=== PATIENT | female | born 1980 | race African-American/Black ===

== ENCOUNTER 2021-05-29 00:03 | Inpatient (IN) | payer OTHER, SELFPAY ==
[2021-05-29] VITALS (57 sets, daily range): BP systolic 118–218; BP diastolic 016–169; PULSE 66–101; RESP 11–23; TEMP 19.4–37.3; O2SAT 98–100; BMI 27.3
--- NOTE | ~2021-05-29 | IR_ITS ---
PROCEDURE: IR INSERTION OF CENTRAL VENOUS CATHETER CLINICAL INFORMATION: Patient needs dialysis. COMPARISON: None TECHNIQUE: Placement of temporary dialysis catheter portably in the ICU. All elements of maximal sterile barrier technique followed including use of cap, mask, sterile gown, sterile gloves, a sterile full body drape and hand hygiene. Also followed skin preparation with 2% chlorhexidine for cutaneous antisepsis, and sterile ultrasound preparation with sterile gel and probe cover when applicable. FINDINGS: Informed consent was obtained from the patient's guardian prior to the procedure. During this process, the procedure and potential alternatives were explained, along with the intended outcome and benefits. The risks of the procedure, as well as the risk of not doing the procedure, were discussed. The patient's guardian was given the opportunity to ask questions regarding the procedure and appeared competent to make medical decisions. A signed consent form which documents this discussion was placed in the medical record. Using sterile technique and ultrasound guidance the right internal jugular vein was punctured and guidewire directed down into the inferior vena cava. Following fascial dilatation a 12 [place] dual-lumen dialysis catheter was placed. Catheter was sutured in place. No immediate complication was evident. IR/IR cvc insert non tunnel IMPRESSION: Placement of right internal jugular dialysis catheter portably without fluoroscopy.
--- NOTE | ~2021-05-29 | XR_ITS ---
EXAMINATION: XR CHEST CLINICAL INFORMATION: Status post right IJ dialysis catheter placement. COMPARISON: Chest radiograph dated from 05/29/2021. TECHNIQUE: AP view of the chest was obtained. FINDINGS: A large bore right IJ dialysis catheter terminates overlying the lower SVC. A left IJ CVC appears slightly more retracted than on the prior examination projecting at the level of the left innominate vein to the left of the thoracic spine. An endotracheal tube terminates at 7.4 cm above the davidson. Stable appearance of the cardiomediastinal silhouette. EKG wires overlie to patient. No focal airspace opacities, pleural effusions or pneumothorax. No acute osseous abnormalities. The visualized upper abdomen is within normal limits. XR/XR chest 1V IMPRESSION: 1. Endotracheal tube terminates at 7.4 cm above the davidson, recommend repositioning. 2. Right IJ large-bore dialysis catheter terminates projecting over the lower SVC. Usually, the recommended positioning is within the right atrium. Recommend correlation with interventionalist and if needed repositioning. 3. Left IJ CVC is slightly more retracted at the level of the left innominate vein. 4. Clear lungs. The report will be called to the ordering clinician by a [facility] [employer] Developer.
--- NOTE | ~2021-05-29 | US_ITS ---
EXAMINATION: ULTRASOUND RENAL WITH DOPPLER CLINICAL INFORMATION: Hypertension COMPARISON: None. TECHNIQUE: Real-time grayscale, color Doppler, and duplex Doppler evaluation of the kidneys and renal vasculature was performed. FINDINGS: RENAL MEASUREMENTS: Right: 8.3 x 3.2 x 6.7 cm (Sag x AP x TV) simple cyst middle pole measures 3.4 x 3.5 x 3.7 cm, simple cyst upper pole 0.8 x 1.1 x 1.1 cm. Left: 7.8 x 4 x 3.8 cm (Sag x AP x TV) Simple cyst middle pole 0.8 x 0.6 x 0.7 cm. The renal parenchyma appears normal. No hydronephrosis or nephrolithiasis. DOPPLER INTERROGATION: Aorta: 65.4 cm/sec Right Main Renal Artery: Proximal: Not visualized obscured by bowel gas. Mid: 40 cm/sec Distal: 48 cm/sec Left Main Renal Artery: Proximal: 63 cm/sec Mid: 56 cm/sec Distal: 33 cm/sec Renal-Aortic Ratio (RAR): Right: 0.7 Left: 1 US/US renal BI IMPRESSION: No Doppler evidence of renal artery stenosis. Bilateral simple renal cysts. No follow-up is required.
--- NOTE | ~2021-05-29 | CT_ITS ---
EXAMINATION: CT HUMERUS WITHOUT CONTRAST, LEFT CT FOREARM WITHOUT CONTRAST, LEFT CLINICAL INFORMATION: Swelling. Intubated ICU patient. COMPARISON: None TECHNIQUE: Contiguous axial CT images of the left humerus were obtained without contrast. Contiguous axial CT images of the left forearm were obtained without contrast. Sagittal and coronal reformats were provided. This CT examination was performed using dose optimization techniques as appropriate, variously including the following: *Automated exposure control *Adjustment of mA and/or kV according to patient size (this includes techniques or standardized protocols for targeted exams where dose is matched to indication/reason for exam; i.e. extremities or head) *Use of iterative reconstruction technique DOSE: 364 mGy-cm FINDINGS: LEFT HUMERUS: No acute fracture or dislocation. No concerning lytic or blastic osseous lesion. No acute osseous abnormality. Circumferential subcutaneous edema and stranding at the distal humerus and left elbow. No organized fluid collection or evidence of abscess formation. No soft tissue mass. Left flank subcutaneous fluid/edema is partially visualized. The visualized muscles and tendons are grossly intact, however, evaluation is significantly limited on CT examination. LEFT FOREARM: No acute fracture or dislocation. No concerning lytic or blastic osseous lesion. No acute osseous abnormality. Circumferential subcutaneous edema and stranding at the left elbow extending through the majority of the left forearm into the left hand. No organized fluid collection/abscess formation. No abnormal soft tissue mass. Left flank subcutaneous venous edema/fluid is partially visualized. The muscles and tendons are grossly intact, however, evaluation is limited on CT examination. CT/CT humerus LT wo con IMPRESSION: 1. Prominent circumferential subcutaneous edema and stranding extending from the distal humerus to the left elbow and left forearm into the left hand. 2. No abnormal soft tissue mass or organized fluid collection/abscess formation. 3. No acute osseous abnormality.
--- NOTE | ~2021-05-29 | XR_ITS ---
EXAMINATION: XR CHEST CLINICAL INFORMATION: Intubation COMPARISON: None TECHNIQUE: Frontal view of the chest was obtained. FINDINGS: Endotracheal tube terminates 8.9 cm above the davidson. Normal symmetric lung volumes. No parenchymal consolidation. No pleural effusion. No pneumothorax. Cardiomediastinal silhouette and pulmonary vascularity are within normal limits. No acute osseous abnormalities. XR/XR chest 1V IMPRESSION: Endotracheal tube terminates 8.9 cm above the davidson. Clear lungs.
--- NOTE | ~2021-05-29 | CT_ITS ---
EXAMINATION: CT ANGIOGRAM NECK CLINICAL INFORMATION: Vasculitis. Evaluate carotid/vertebrobasilar arteries. COMPARISON: MRI scan of the brain 05/30/2021. CT scan of the neck 05/29/2021. TECHNIQUE: Test bolus series followed by intravenous administration 70 mL of Omnipaque 350. Helical imaging was performed in the axial plane from the mediastinum to the skull base. The degree of stenosis is based off NASCET criteria. The data was processed at the cytotechnologist/histotechnologist workstation for generation of MIP images. Three-dimensional volume rendered reformatted images were also generated at an offline 3-D workstation. This CT examination was performed using dose optimization techniques as appropriate, variously including the following: *Automated exposure control *Adjustment of mA and/or kV according to patient size (this includes techniques or standardized protocols for targeted exams where dose is matched to indication/reason for exam; i.e. extremities or head) *Use of iterative reconstruction technique DLP: 871 mGy-cm. FINDINGS: There is a 2 vessel aortic arch, and the left common carotid and brachiocephalic arteries have a common origin. The subclavian arteries are patent bilaterally. The common carotid arteries are patent bilaterally. The left common carotid artery is slightly tortuous. The carotid bifurcations appear normal without atheromatous calcification. The cervical internal carotid arteries are patent bilaterally. The external carotid arteries and their branches appear patent; specifically, the lingual arteries are patent bilaterally The origins of both vertebral arteries are well-demonstrated. The right vertebral artery is dominant; the left vertebral artery is uniformly thin compared to the right, but is patent throughout its cervical course extending intracranially. Intracranially, the right vertebral artery is dominant. The left vertebral artery appears to end primarily in the PICA. Nonvascular: The visualized lung rae are well-aerated. The thyroid gland appears normal. Endotracheal and nasogastric tubes are partially visualized. There are central catheters from the left and right. There are no acute osseous findings. The tongue does not appear as swollen compared to the prior CT scan. There are sequelae of a right lamina papyracea fracture. Blood and fluid levels are noted in the right maxillary and right sphenoid sinuses and there is opacification in the right ethmoid air cells. The intracranial structures are not fully included on this study. CT/CT angio neck IMPRESSION: 1. The common and internal carotid arteries are patent bilaterally. The carotid bifurcations appear normal. The branches of the external carotid artery appear to opacify normally, bilaterally. 2. The left vertebral artery is thinner compared to the right but has uniform caliber throughout its cervical course. It appears to end primarily in the PICA. 3. There are sequelae of a right lamina papyracea fracture and blood and fluid levels are noted in the right maxillary and right sphenoid sinuses.
--- NOTE | ~2021-05-29 | CT_ITS ---
EXAMINATION: CT HEAD WITHOUT CONTRAST CLINICAL INFORMATION: Evaluate for edema. COMPARISON: CT brain 05/29/2021 TECHNIQUE: Contiguous axial imaging was performed from the skull base to vertex without intravenous administration of contrast. This CT examination was performed using dose optimization techniques as appropriate, variously including the following: *Automated exposure control *Adjustment of mA and/or kV according to patient size (this includes techniques or standardized protocols for targeted exams where dose is matched to indication/reason for exam; i.e. extremities or head) *Use of iterative reconstruction technique DLP: 635 mGy-cm FINDINGS: There is no acute intra-axial or extra-axial bleed or masses or mass effect. There is hypoattenuation seen in both occipital lobes with associated subcortical involvement slightly more prominent on the left and right. Similar findings were seen on recent. CT brain 05/29/2021 at 2:39 AM. However no abnormality seen on MRI brain from 03/06/2019. There is no midline shift. Bone windows reveal no calvarial abnormality. There is no scalp soft tissue around it. Bilateral paranasal sinuses and mastoid air cells are well-aerated with mild mucoperiosteal thickening bilateral sphenoid and posterior ethmoid sinuses. CT/CT head/brain wo con IMPRESSION: No change in the abnormal attenuation within the bilateral posterior occipital lobes involving the subcortical white matter left greater than right. The findings are more sales and marketing representative of white matter encephalopathy then stroke. A routine outpatient follow-up MRI brain can be performed
--- NOTE | ~2021-05-29 | US_ITS ---
EXAMINATION: US VENOUS WITH DOPPLER UPPER EXTREMITY, LEFT CLINICAL INFORMATION: Edema/swelling COMPARISON: None TECHNIQUE: Ultrasound of the upper extremity is performed using compression sonography and color and pulse Doppler flow with assessment of augmentation of flow. There is also imaging and Doppler assessment of the jugular and subclavian veins. Spectral analysis with color-flow imaging is performed. FINDINGS: Respiratory variation, normal compression, and augmented flow are noted throughout the left upper extremity including the axillary, brachial, cubital, and radial and ulnar veins. There is normal flow in the internal jugular and subclavian veins. There is no visible deep or superficial thrombophlebitis. If the patient's symptoms progress, a followup ultrasound in 5 -7 days might be of value to exclude proximal propagation from a nonvisualized distal arm vein. US/US venous duplex UE LT IMPRESSION: No DVT demonstrated in the left upper extremity.
--- NOTE | ~2021-05-29 | US_ITS ---
EXAMINATION: ULTRASOUND RENAL WITH DOPPLER CLINICAL INFORMATION: Hypertension COMPARISON: None. TECHNIQUE: Real-time grayscale, color Doppler, and duplex Doppler evaluation of the kidneys and renal vasculature was performed. FINDINGS: RENAL MEASUREMENTS: Right: 8.3 x 3.2 x 6.7 cm (Sag x AP x TV) simple cyst middle pole measures 3.4 x 3.5 x 3.7 cm, simple cyst upper pole 0.8 x 1.1 x 1.1 cm. Left: 7.8 x 4 x 3.8 cm (Sag x AP x TV) Simple cyst middle pole 0.8 x 0.6 x 0.7 cm. The renal parenchyma appears normal. No hydronephrosis or nephrolithiasis. DOPPLER INTERROGATION: Aorta: 65.4 cm/sec Right Main Renal Artery: Proximal: Not visualized obscured by bowel gas. Mid: 40 cm/sec Distal: 48 cm/sec Left Main Renal Artery: Proximal: 63 cm/sec Mid: 56 cm/sec Distal: 33 cm/sec Renal-Aortic Ratio (RAR): Right: 0.7 Left: 1 US/US renal doppler IMPRESSION: No Doppler evidence of renal artery stenosis. Bilateral simple renal cysts. No follow-up is required.
--- NOTE | ~2021-05-29 | IR_ITS ---
PROCEDURE: IR INSERTION OF CENTRAL VENOUS CATHETER CLINICAL INFORMATION: Patient needs dialysis. COMPARISON: None TECHNIQUE: Placement of temporary dialysis catheter portably in the ICU. All elements of maximal sterile barrier technique followed including use of cap, mask, sterile gown, sterile gloves, a sterile full body drape and hand hygiene. Also followed skin preparation with 2% chlorhexidine for cutaneous antisepsis, and sterile ultrasound preparation with sterile gel and probe cover when applicable. FINDINGS: Informed consent was obtained from the patient's guardian prior to the procedure. During this process, the procedure and potential alternatives were explained, along with the intended outcome and benefits. The risks of the procedure, as well as the risk of not doing the procedure, were discussed. The patient's guardian was given the opportunity to ask questions regarding the procedure and appeared competent to make medical decisions. A signed consent form which documents this discussion was placed in the medical record. Using sterile technique and ultrasound guidance the right internal jugular vein was punctured and guidewire directed down into the inferior vena cava. Following fascial dilatation a 12 [place] dual-lumen dialysis catheter was placed. Catheter was sutured in place. No immediate complication was evident. IR/IR us guide venous access IMPRESSION: Placement of right internal jugular dialysis catheter portably without fluoroscopy.
--- NOTE | ~2021-05-29 | MR_ITS ---
EXAMINATION: MR BRAIN WITHOUT CONTRAST CLINICAL INFORMATION: Posterior reversible encephalopathy syndrome. COMPARISON: CT head from 05/29/2021. Brain MRI from 03/06/2019. TECHNIQUE: MRI of the brain was obtained using routine sequences without contrast. FINDINGS: No focal restricted diffusion is demonstrated to suggest acute or subacute cerebral ischemia. No evidence of acute hemorrhagic products on heme-sensitive imaging. Chronic small focus of susceptibility artifact along the left superior frontal gyrus consistent with petechial microhemorrhage. Expansile T2 FLAIR hyperintensity involving the subcortical occipital lobes bilaterally, the left midbrain, nearly the entirety of the svitlana, the ventral medulla, and regions of the left cerebellar hemisphere. The ventricles are normal in morphology and size. No midline shift. Normal appearance of the pituitary gland. Normal positioning of the cerebellar tonsils. Normal arterial and venous vascular flow voids are present. Normal, homogeneous marrow signal. Right-sided nasal airway in place. Moderate mucosal thickening of the paranasal sinuses. Layering fluid within the right maxillary sinus. No signal abnormalities within the mastoids. MR/MR head/brain wo con IMPRESSION: Expansile T2 FLAIR hyperintensity involving the bilateral occipital lobes, brainstem, and left cerebellar hemisphere. Changes are nonspecific but may be seen in the setting of posterior reversible encephalopathy syndrome (PRES). No evidence of hemorrhagic conversion or overt restricted diffusion at this time.
--- NOTE | ~2021-05-29 | CT_ITS ---
EXAMINATION: CT SOFT TISSUE NECK WITH CONTRAST CLINICAL INFORMATION: Found face down. COMPARISON: None TECHNIQUE: Following the intravenous administration of 60 mL of Omnipaque 350 intravenous contrast, helical imaging was performed in the axial plane with generation of coronal and sagittal reformatted images. This CT examination was performed using dose optimization techniques as appropriate, variously including the following: *Automated exposure control *Adjustment of mA and/or kV according to patient size (this includes techniques or standardized protocols for targeted exams where dose is matched to indication/reason for exam; i.e. extremities or head) *Use of iterative reconstruction technique DLP: 513 mGy-cm FINDINGS: The enlarged edematous tongue protrudes in the mandible and shows hypodensity suggestive of infarction.There is also symmetric edematous thickening of the bilateral geniohyoid and anterior bellies of the bilateral digastric musculature. Mild thickening of the platysma. Fat stranding present in the submandibular region. There is mild fat stranding which extends posteriorly towards the carotid space bilaterally, with trace fat stranding within the left parapharyngeal space. No deep space collection is identified. No cervical adenopathy is identified. The parotid glands are homogeneous in attenuation. The submandibular glands are normal. No contour abnormality or pathologic enhancement is seen within the oral cavity or pharyngeal mucosal space. The laryngeal structures are normal. The parapharyngeal fat is preserved. The carotid sheath vasculature opacify normally. No extra mucosal soft tissue mass or fluid collection is seen. No retropharyngeal fluid collection is seen. The thyroid gland is normal. The superior mediastinum is unremarkable. The lung apices are clear. The mastoid air cells and visualized portions of the paranasal sinuses are well-aerated. The temporomandibular joints are normal. No periapical disease is identified. No osseous abnormalities are seen. There are nodular opacities within the right upper lobe measuring up to 6 mm, regionally distributed suggestive of infectious/inflammatory process. CT/CT soft tissue neck w con IMPRESSION: * Enlarged edematous tongue protrudes from the mouth demonstrating hypodensity suggestive of infarction. * Symmetric low attenuation thickening of the bilateral geniohyoid and anterior digastric musculature. * No evidence of deep space infection or abscess. This critical result was discussed with Dr Cat Menon at 05/29/2021 3:11 AM and it was ascertained that the content and urgency of the report was understood at the time of direct communication.
--- NOTE | ~2021-05-29 | IR_ITS ---
PROCEDURE: IR INSERTION OF TUNNEL CATHETER CLINICAL INFORMATION: Renal failure. COMPARISON: None TECHNIQUE: Procedure and risks and benefits including bleeding, infection and pneumothorax were discussed with the patient's healthcare proxy, Rikki, by telephone and informed consent was obtained. All elements of maximal sterile barrier technique followed including use of cap, mask, sterile gown, sterile gloves, a sterile full body drape and hand hygiene. Also followed skin preparation with 2% chlorhexidine for cutaneous antisepsis, and sterile ultrasound preparation with sterile gel and probe cover when applicable. The right neck was prepped and draped in the usual sterile fashion. The skin and soft tissues were anesthetized with 1% lidocaine plain. Using ultrasound guidance and a 5-[place] micropuncture system, right internal jugular vein access was obtained. Over an .018 wire, a 5-[place] dilator was positioned in the SVC. The skin and soft tissues of the right upper anterior chest were anesthetized with 1% lidocaine plain. A small incision was made. Using a subcutaneous tunnel from the chest to the neck incision was anesthetized with 1% lidocaine plain. Using a tunneler, a 14.5-[place] 23 cm in length Palindrome permacath was tunneled from the chest to the neck incision. An .035 guidewire was advanced through the 5-[place] dilator into the right atrium. Following serial dilatation and through a peel-away sheath, permacath was advanced centrally. Catheter tip is at the cavoatrial junction. The neck incision was closed using a 4-0 subcuticular suture. The chest incision was closed using a 4-0 absorbable mattress suture. Both ports had good blood return, flushed easily and were instilled with heparin 1.9 mL of 1000 unit per mL solution. Real-time ultrasound guidance was used to document vein patency and for needle entry. A formal ultrasound picture was recorded. The patient received fentanyl 75 mcg and Kefzol 2 g IV during the procedure. Total sedation time was 28 minutes. Conscious sedation was provided by a registered nurse using continuous hemodynamic monitoring under my direct supervision. Fluoroscopy time 1.3 minutes. DAP 235 cGy-cm2. 1 saved fluoroscopic image. FINDINGS: There is a right internal jugular permacath with tip projecting over the cavoatrial junction. IR/IR us guide venous access IMPRESSION: Right internal jugular 14.5-[place] 23 cm in length Palindrome permacath placement.
--- NOTE | ~2021-05-29 | XR_ITS ---
EXAMINATION: XR CHEST CLINICAL INFORMATION: Tube feed placement COMPARISON: 05/31/2021 TECHNIQUE: Frontal view of the chest was obtained. FINDINGS: Dobbhoff tube terminates over the stomach. The lung apices are not in the [id number]. Minimal left basilar linear atelectasis. The visualized right lung is clear. The cardiomediastinal silhouette is unchanged. XR/XR chest 1V IMPRESSION: Dobbhoff tube terminates over the stomach.
--- NOTE | ~2021-05-29 | XR_ITS ---
EXAMINATION: XR CHEST CLINICAL INFORMATION: Central line placement COMPARISON: Earlier same day TECHNIQUE: Frontal view of the chest was obtained. XR/XR chest 1V FINDINGS/IMPRESSION: Endotracheal tube terminates 7.2 cm above the davidson. Left internal jugular central venous introducer terminates near the confluence of the brachiocephalic veins. No pneumothorax. Lungs are clear. No pleural effusion. Normal heart size and pulmonary vascularity.
--- NOTE | ~2021-05-29 | CT_ITS ---
EXAMINATION: CT HEAD WITHOUT CONTRAST CLINICAL INFORMATION: Altered mental status COMPARISON: MRI brain dated 03/06/2019 TECHNIQUE: Contiguous axial imaging was performed from the skull base to vertex without intravenous administration of contrast. This CT examination was performed using dose optimization techniques as appropriate, variously including the following: *Automated exposure control *Adjustment of mA and/or kV according to patient size (this includes techniques or standardized protocols for targeted exams where dose is matched to indication/reason for exam; i.e. extremities or head) *Use of iterative reconstruction technique DLP: 647 mGy-cm FINDINGS: There is loss of goncalves-white differentiation and bilateral occipital lobes, more pronounced on the left, with associated patchy subcortical white matter hypodensities in these regions. There is also patchy hypodensity within the left cerebellar white matter. No intracranial hemorrhage. No extra-axial collection. No significant mass effect. No herniation pattern. The ventricles are normal in size. There is no abnormal attenuation within the brain parenchyma. The osseous structures and soft tissues are normal. The mastoid air cells and visualized portions of the paranasal sinuses are well aerated. CT/CT head/brain wo con IMPRESSION: There is abnormal attenuation within the posterior circulation distribution involving the occipital lobes and left cerebellum characterized by subcortical white matter hypodensity, and areas of ill definition of the goncalves-white matter interface. The pattern and appearance would be typical for posterior reversible cephalopathy syndrome. MRI could lend further specificity. This critical result was discussed with Dr Cat Menon at 05/29/2021 3:11 AM and it was ascertained that the content and urgency of the report was understood at the time of direct communication.
--- NOTE | ~2021-05-29 | IR_ITS ---
PROCEDURE: IR INSERTION OF TUNNEL CATHETER CLINICAL INFORMATION: Renal failure. COMPARISON: None TECHNIQUE: Procedure and risks and benefits including bleeding, infection and pneumothorax were discussed with the patient's healthcare proxy, Rikki, by telephone and informed consent was obtained. All elements of maximal sterile barrier technique followed including use of cap, mask, sterile gown, sterile gloves, a sterile full body drape and hand hygiene. Also followed skin preparation with 2% chlorhexidine for cutaneous antisepsis, and sterile ultrasound preparation with sterile gel and probe cover when applicable. The right neck was prepped and draped in the usual sterile fashion. The skin and soft tissues were anesthetized with 1% lidocaine plain. Using ultrasound guidance and a 5-Malawian micropuncture system, right internal jugular vein access was obtained. Over an .018 wire, a 5-Malawian dilator was positioned in the SVC. The skin and soft tissues of the right upper anterior chest were anesthetized with 1% lidocaine plain. A small incision was made. Using a subcutaneous tunnel from the chest to the neck incision was anesthetized with 1% lidocaine plain. Using a tunneler, a 14.5-Malawian 23 cm in length Palindrome permacath was tunneled from the chest to the neck incision. An .035 guidewire was advanced through the 5-Malawian dilator into the right atrium. Following serial dilatation and through a peel-away sheath, permacath was advanced centrally. Catheter tip is at the cavoatrial junction. The neck incision was closed using a 4-0 subcuticular suture. The chest incision was closed using a 4-0 absorbable mattress suture. Both ports had good blood return, flushed easily and were instilled with heparin 1.9 mL of 1000 unit per mL solution. Real-time ultrasound guidance was used to document vein patency and for needle entry. A formal ultrasound picture was recorded. The patient received fentanyl 75 mcg and Kefzol 2 g IV during the procedure. Total sedation time was 28 minutes. Conscious sedation was provided by a registered nurse using continuous hemodynamic monitoring under my direct supervision. Fluoroscopy time 1.3 minutes. DAP 235 cGy-cm2. 1 saved fluoroscopic image. FINDINGS: There is a right internal jugular permacath with tip projecting over the cavoatrial junction. IR/IR cvc insert central tunnel IMPRESSION: Right internal jugular 14.5-Malawian 23 cm in length Palindrome permacath placement.
--- NOTE | ~2021-05-29 | US_ITS ---
EXAMINATION: US VENOUS WITH DOPPLER UPPER EXTREMITY, LEFT CLINICAL INFORMATION: Edema COMPARISON: None TECHNIQUE: Ultrasound of the upper extremity is performed using compression sonography and color and pulse Doppler flow with assessment of augmentation of flow. There is also imaging and Doppler assessment of the jugular and subclavian veins. Spectral analysis with color-flow imaging is performed. FINDINGS: Respiratory variation, normal compression, and augmented flow are noted throughout the upper extremity including the axillary, brachial, cubital, and radial and ulnar veins. Left internal jugular vein not able to be assessed. There is no visible deep or superficial thrombophlebitis. Questionable small clot within the distal cephalic vein. Diffuse soft tissue edema is present along the antecubital fossa. US/US venous duplex UE LT IMPRESSION: No DVT demonstrated in the left upper extremity. Superficial venous thrombosis suspected within the distal cephalic vein.
[2021-05-29 00:51] LABS: COVID-19 Test Negative (Negative); IDNOW Serial# 9DD0AD1C
--- NOTE | 2021-05-29 01:21 | ED.GENADULT ---
HPI - General Adult General Chief complaint: General Medical Stated complaint: seizure? Time Seen by Provider: 05/29/21 00:36 Source: patient and EMS Mode of arrival: EMS Limitations: altered mental status History of Present Illness HPI narrative: Patient comes to emergency room by EMS. Seems that patient's family had not seen her for approximately 4 days. EMS went to the patient's residence. Patient was found face down, tongue swollen and chronic, unable to speak, altered mental status. Skin cool to touch. The family did not know any medical history about the patient. All that the family knows is that the patient is a dialysis patient and a few years ago she had a stroke. Patient's baseline is alert and oriented x3. Patient lives by herself and drives herself. Related Data Allergies Allergy/AdvReac Type Severity Reaction Status Date / Time No Known Allergies Allergy Verified 05/29/21 00:36 Review of Systems Review of Systems: Yes Unobtainable due to mental condition PMFSH Past Medical History [facility] Narrative: Unobtainable Social History Social History Alcohol intake: unknown Use of substances other than those prescribed or required for medical reasons: Unknown Advance Directives: No Physical Exam Vital Signs: Vital Signs: Last Vital Signs Temp 95.9 F L 05/29/21 07:41 Pulse 76 05/29/21 07:41 Resp 16 05/29/21 07:04 BP 135/90 H 05/29/21 07:41 Pulse Ox 100 05/29/21 07:41 BMI result Body Mass Index 27.3 Const: Other: Appearance: Alert. Altered Eyes: Pupils equal, round and reactive to light. ENT: Tongue is grossly enlarged, cannot fit in the mouth, necrotic, draining foul-smelling purulent fluid from the posterior aspect of the tongue Neck: Patient seems to be very tender when touched in the neck area especially under the chin CVS: Normal heart rate and rhythm. Pulses normal. Normal S1 and S2 Respiratory: No respiratory distress. Breath sounds normal. No Wheezing. No rales Abdomen: Soft and nontender. No rigidity. No distention, patient has a peritoneal dialysis catheter in the abdomen : Patient came in with a sanitary pad soaked with blood. Vaginal bleeding present. Patient likely menstruating Skin: Skin warm and dry. Extremities: No lower extremity edema. Neuro: Awake, unable to speak due to size of tongue and altered mental status Course Course Course Narrative: Fortunately, Dr. Garcia who is our ICU doctor and anesthesiologist was in house, who assisted us with sedation for nasal intubation. At this time, 141 a.m. patient has been successfully intubated. All of patient's labs are pending. Patient is prophylactically being treated with vancomycin, Zosyn, clindamycin, IV fluids. CT scan of the head and soft tissues is pending. Patient is stable, blood pressure initially elevated at 218/169 secondary to all the medications we used for sedation. Now blood pressure 159 systolic. For sedation, patient received 40 mg of the push propofol, 160 of precedex Patient's initial hemoglobin 7.7, after 3 L patient's hemoglobin dropped to 5.9, likely hemodilution. Given the patient's medical condition, we are going to go ahead and transfuse. There is no family available and patient cannot consent for blood transfusion. Given the emergency, we will go ahead type and screen and started blood transfusion for hours, we have been trying to transfer the patient. At this time no ICU beds are available. We have tried [facility], [facility], [place], [place], [facility], [facility], [facility] and [facility], [facility], [facility], [facility] . [facility] called [facility] and [facility] for us, no one has ICU beds available. At this time, I have exhausted all possibilities of transferring the patient. I discussed the patient with Dr. Bender fur further assitance in the process of transfering the pt. Also, Cardiology has been consulted for further advise, response pending. We're still trying to transfer the pt, sign out given to Dr. Moran Procedures Central Line Placement Left IJ: Time Out Performed: Yes Patient Placed on Monitor/Pulse Ox: Yes MD Prep: mask, gown and gloves Local Anesthetic: lidocaine 1% Ultrasound Used for Placement: Yes Central Line Lumen Inserted: triple Post Procedure: good blood return (Except in the brown port) Post Procedure X-Ray: tip of catheter in good position and no pneumothorax seen Patient Tolerated Procedure: well Complications: none Intubation Time out performed: Yes sedative: other (160 mg of Precedex, 40 mg of propofol) Assist Device Used: fiber optic device ET Tube Size: 6.5 ET Tube Uncuffed: Yes Tube Secured Depth (cm): 26 Tube Secured Location: other (Right nostril) Tube Placement Confirmation: visualized tube passing through cords and equal breath sounds bilaterally Patient Tolerated Procedure: well Intubation Complications: none Medical Decision Making Lab Data Result diagrams: 05/29/21 04:35 05/29/21 02:21 Labs: Lab Results 05/29/21 05/29/21 05/29/21 Range/Units 00:28 02:20 02:21 WBC (4.8-10.8) X10*3/uL RBC (4.20-5.50) X10*6/uL Hgb (12.0-16.0) g/dl Hct (37.0-47.0) % MCV (80.0-98.0) fL MCH (27.0-33.0) pg MCHC (31.0-35.0) g/dl RDW (11.0-16.0) % Plt Count (160-400) X10*3/uL MPV (9.4-12.3) fL Immature Gran % (Auto) (0.0-0.4) % Neut % (Auto) (45-73) % Lymph % (Auto) (20-40) % Marshall % (Auto) (2-11) % Eos % (Auto) (0-4) % Baso % (Auto) (0-2) % Lymph # (Auto) (1.2-4.9) X10*3/uL Marshall # (Auto) (0.1-1.2) X10*3/uL Eos # (Auto) (0.0-0.4) X10*3/uL Baso # (Auto) (0.0-0.2) X10*3/uL Abs Immat Gran (auto) (0.00-0.03) X10*3/uL Absolute Neuts (auto) (2.0-8.3) x10*3/uL Absolute Nucleated RBC (0.0-0.012) X10*3/uL Nucleated RBC % (auto) (0.0-0.2) /100WBC Smear Tech's Comments PT (9.9-13.0) SEC INR (0.9-1.1) VBG pH (7.32-7.43) VBG pCO2 mmHg VBG pO2 mmHg VBG HCO3 (22-26) mmol/L VBG O2 Saturation % VBG Base Excess mmol/L Sodium 144 (135-145) mmol/L Potassium 3.9 (3.3-5.1) mmol/L Chloride 106 (96-108) mmol/L Carbon Dioxide 9 L* (22-29) mmol/L Anion Gap 33 H (12-20) BUN 109 H (9-16) mg/dL Creatinine 20.85 H* (0.5-1.4) mg/dL Estim Creat Clear Calc 4.0 Estimated GFR 2 POC Glucose (60-115) mg/dL Random Glucose 112 (60-115) mg/dL Lactic Acid (0.5-2.0) mmol/L Calcium 9.2 (8.4-10.2) mg/dL Magnesium 2.5 (1.6-2.6) mg/dL Total Bilirubin 0.4 (0.0-1.0) mg/dL Direct Bilirubin 0.2 (0.0-0.5) mg/dL AST 64 H (5-31) U/L ALT 21 (0-31) U/L Alkaline Phosphatase 43 (39-117) U/L Troponin I High Sens (<3.5-17.0) ng/L Total Protein 5.2 L (6.5-8.0) g/dL Albumin 2.8 L (3.5-5.0) g/dL Lipase 9 (8-78) U/L TSH 2.55 (0.32-4.0) uIU/mL Urine Color Urine Appearance Urine pH (5.0-8.0) Ur Specific [place] (1.005-1.025) Urine Protein (NEG-TRACE) MG/DL Urine Glucose (UA) (NEG) MG/DL Urine Ketones (NEG) MG/DL Urine Blood (NEG) Urine Nitrite (NEG) Ur Leukocyte Esterase (NEG) Urine RBC (0) /HPF Urine WBC (0-4) /HPF Ur Squamous Epith Cells /LPF Urine Bacteria /LPF Granular Casts /LPF Urine Mucus /LPF Salicylates < 5.0 L (15-30) mg/dL Acetaminophen 3 (<30) mcg/mL Ethyl Alcohol mg/dL Acetone, Qual Negative (Negative) COVID-19 (ANISA) Negative (Negative) COVID-19 Clin Com See Note Hep Bs Antigen (Negative) Hep Bs Antibody (Nonreactive) Hep B Core Total Ab (Nonreactive) Hepatitis C Ab (EIA) (Nonreactive) HIV 1&2 Ab/P24 Ag 4thGn (Nonreactive) Blood Type O Positive Antibody Screen NEGATIVE Crossmatch See Detail 05/29/21 05/29/21 05/29/21 Range/Units 02:21 02:21 03:49 WBC 8.7 (4.8-10.8) X10*3/uL RBC 2.80 L (4.20-5.50) X10*6/uL Hgb 7.7 L (12.0-16.0) g/dl Hct 24.9 L (37.0-47.0) % MCV 88.9 (80.0-98.0) fL MCH 27.5 (27.0-33.0) pg MCHC 30.9 L (31.0-35.0) g/dl RDW 16.1 H (11.0-16.0) % Plt Count 181 (160-400) X10*3/uL MPV 11.1 (9.4-12.3) fL Immature Gran % (Auto) 0.5 H (0.0-0.4) % Neut % (Auto) 86.2 H (45-73) % Lymph % (Auto) 8.4 L (20-40) % Marshall % (Auto) 4.7 (2-11) % Eos % (Auto) 0.1 (0-4) % Baso % (Auto) 0.1 (0-2) % Lymph # (Auto) 0.7 L (1.2-4.9) X10*3/uL Marshall # (Auto) 0.4 (0.1-1.2) X10*3/uL Eos # (Auto) 0.0 (0.0-0.4) X10*3/uL Baso # (Auto) 0.0 (0.0-0.2) X10*3/uL Abs Immat Gran (auto) 0.04 H (0.00-0.03) X10*3/uL Absolute Neuts (auto) 7.5 (2.0-8.3) x10*3/uL Absolute Nucleated RBC 0.000 (0.0-0.012) X10*3/uL Nucleated RBC % (auto) 0.0 (0.0-0.2) /100WBC Smear Tech's Comments VERIFIED PT (9.9-13.0) SEC INR (0.9-1.1) VBG pH (7.32-7.43) VBG pCO2 mmHg VBG pO2 mmHg VBG HCO3 (22-26) mmol/L VBG O2 Saturation % VBG Base Excess mmol/L Sodium (135-145) mmol/L Potassium (3.3-5.1) mmol/L Chloride (96-108) mmol/L Carbon Dioxide (22-29) mmol/L Anion Gap (12-20) BUN (9-16) mg/dL Creatinine (0.5-1.4) mg/dL Estim Creat Clear Calc Estimated GFR POC Glucose (60-115) mg/dL Random Glucose (60-115) mg/dL Lactic Acid (0.5-2.0) mmol/L Calcium (8.4-10.2) mg/dL Magnesium (1.6-2.6) mg/dL Total Bilirubin (0.0-1.0) mg/dL Direct Bilirubin (0.0-0.5) mg/dL AST (5-31) U/L ALT (0-31) U/L Alkaline Phosphatase (39-117) U/L Troponin I High Sens (<3.5-17.0) ng/L Total Protein (6.5-8.0) g/dL Albumin (3.5-5.0) g/dL Lipase (8-78) U/L TSH (0.32-4.0) uIU/mL Urine Color Urine Appearance Urine pH (5.0-8.0) Ur Specific [place] (1.005-1.025) Urine Protein (NEG-TRACE) MG/DL Urine Glucose (UA) (NEG) MG/DL Urine Ketones (NEG) MG/DL Urine Blood (NEG) Urine Nitrite (NEG) Ur Leukocyte Esterase (NEG) Urine RBC (0) /HPF Urine WBC (0-4) /HPF Ur Squamous Epith Cells /LPF Urine Bacteria /LPF Granular Casts /LPF Urine Mucus /LPF Salicylates (15-30) mg/dL Acetaminophen (<30) mcg/mL Ethyl Alcohol < 10 mg/dL Acetone, Qual (Negative) COVID-19 (ANISA) (Negative) COVID-19 Clin Com Hep Bs Antigen Negative (Negative) Hep Bs Antibody NONREACTIVE (Nonreactive) Hep B Core Total Ab Nonreactive (Nonreactive) Hepatitis C Ab (EIA) Nonreactive (Nonreactive) HIV 1&2 Ab/P24 Ag 4thGn Nonreactive (Nonreactive) Blood Type Antibody Screen Crossmatch 05/29/21 05/29/21 05/29/21 Range/Units 03:49 03:52 04:03 WBC (4.8-10.8) X10*3/uL RBC (4.20-5.50) X10*6/uL Hgb (12.0-16.0) g/dl Hct (37.0-47.0) % MCV (80.0-98.0) fL MCH (27.0-33.0) pg MCHC (31.0-35.0) g/dl RDW (11.0-16.0) % Plt Count (160-400) X10*3/uL MPV (9.4-12.3) fL Immature Gran % (Auto) (0.0-0.4) % Neut % (Auto) (45-73) % Lymph % (Auto) (20-40) % Marshall % (Auto) (2-11) % Eos % (Auto) (0-4) % Baso % (Auto) (0-2) % Lymph # (Auto) (1.2-4.9) X10*3/uL Marshall # (Auto) (0.1-1.2) X10*3/uL Eos # (Auto) (0.0-0.4) X10*3/uL Baso # (Auto) (0.0-0.2) X10*3/uL Abs Immat Gran (auto) (0.00-0.03) X10*3/uL Absolute Neuts (auto) (2.0-8.3) x10*3/uL Absolute Nucleated RBC (0.0-0.012) X10*3/uL Nucleated RBC % (auto) (0.0-0.2) /100WBC Smear Tech's Comments PT 11.2 (9.9-13.0) SEC INR 1.0 (0.9-1.1) VBG pH 7.28 L (7.32-7.43) VBG pCO2 19 mmHg VBG pO2 204 mmHg VBG HCO3 9 L (22-26) mmol/L VBG O2 Saturation 99.0 % VBG Base Excess -14.9 mmol/L Sodium (135-145) mmol/L Potassium (3.3-5.1) mmol/L Chloride (96-108) mmol/L Carbon Dioxide (22-29) mmol/L Anion Gap (12-20) BUN (9-16) mg/dL Creatinine (0.5-1.4) mg/dL Estim Creat Clear Calc Estimated GFR POC Glucose 90 (60-115) mg/dL Random Glucose (60-115) mg/dL Lactic Acid (0.5-2.0) mmol/L Calcium (8.4-10.2) mg/dL Magnesium (1.6-2.6) mg/dL Total Bilirubin (0.0-1.0) mg/dL Direct Bilirubin (0.0-0.5) mg/dL AST (5-31) U/L ALT (0-31) U/L Alkaline Phosphatase (39-117) U/L Troponin I High Sens (<3.5-17.0) ng/L Total Protein (6.5-8.0) g/dL Albumin (3.5-5.0) g/dL Lipase (8-78) U/L TSH (0.32-4.0) uIU/mL Urine Color Urine Appearance Urine pH (5.0-8.0) Ur Specific [place] (1.005-1.025) Urine Protein (NEG-TRACE) MG/DL Urine Glucose (UA) (NEG) MG/DL Urine Ketones (NEG) MG/DL Urine Blood (NEG) Urine Nitrite (NEG) Ur Leukocyte Esterase (NEG) Urine RBC (0) /HPF Urine WBC (0-4) /HPF Ur Squamous Epith Cells /LPF Urine Bacteria /LPF Granular Casts /LPF Urine Mucus /LPF Salicylates (15-30) mg/dL Acetaminophen (<30) mcg/mL Ethyl Alcohol mg/dL Acetone, Qual (Negative) COVID-19 (ANISA) (Negative) COVID-19 Clin Com Hep Bs Antigen (Negative) Hep Bs Antibody (Nonreactive) Hep B Core Total Ab (Nonreactive) Hepatitis C Ab (EIA) (Nonreactive) HIV 1&2 Ab/P24 Ag 4thGn (Nonreactive) Blood Type Antibody Screen Crossmatch 05/29/21 05/29/21 05/29/21 Range/Units 04:35 04:35 04:35 WBC 9.2 (4.8-10.8) X10*3/uL RBC 2.14 L D (4.20-5.50) X10*6/uL Hgb 5.9 L* D (12.0-16.0) g/dl Hct 19.2 L* D (37.0-47.0) % MCV 89.7 (80.0-98.0) fL MCH 27.6 (27.0-33.0) pg MCHC 30.7 L (31.0-35.0) g/dl RDW 16.2 H (11.0-16.0) % Plt Count 203 (160-400) X10*3/uL MPV 10.3 (9.4-12.3) fL Immature Gran % (Auto) 0.5 H (0.0-0.4) % Neut % (Auto) 86.1 H (45-73) % Lymph % (Auto) 8.6 L (20-40) % Marshall % (Auto) 4.8 (2-11) % Eos % (Auto) 0.0 (0-4) % Baso % (Auto) 0.0 (0-2) % Lymph # (Auto) 0.8 L (1.2-4.9) X10*3/uL Marshall # (Auto) 0.4 (0.1-1.2) X10*3/uL Eos # (Auto) 0.0 (0.0-0.4) X10*3/uL Baso # (Auto) 0.0 (0.0-0.2) X10*3/uL Abs Immat Gran (auto) 0.05 H (0.00-0.03) X10*3/uL Absolute Neuts (auto) 7.9 (2.0-8.3) x10*3/uL Absolute Nucleated RBC 0.000 (0.0-0.012) X10*3/uL Nucleated RBC % (auto) 0.0 (0.0-0.2) /100WBC Smear Tech's Comments PT (9.9-13.0) SEC INR (0.9-1.1) VBG pH (7.32-7.43) VBG pCO2 mmHg VBG pO2 mmHg VBG HCO3 (22-26) mmol/L VBG O2 Saturation % VBG Base Excess mmol/L Sodium (135-145) mmol/L Potassium (3.3-5.1) mmol/L Chloride (96-108) mmol/L Carbon Dioxide (22-29) mmol/L Anion Gap (12-20) BUN (9-16) mg/dL Creatinine (0.5-1.4) mg/dL Estim Creat Clear Calc Estimated GFR POC Glucose (60-115) mg/dL Random Glucose (60-115) mg/dL Lactic Acid 0.7 (0.5-2.0) mmol/L Calcium (8.4-10.2) mg/dL Magnesium (1.6-2.6) mg/dL Total Bilirubin (0.0-1.0) mg/dL Direct Bilirubin (0.0-0.5) mg/dL AST (5-31) U/L ALT (0-31) U/L Alkaline Phosphatase (39-117) U/L Troponin I High Sens 837.7 H* (<3.5-17.0) ng/L Total Protein (6.5-8.0) g/dL Albumin (3.5-5.0) g/dL Lipase (8-78) U/L TSH (0.32-4.0) uIU/mL Urine Color Urine Appearance Urine pH (5.0-8.0) Ur Specific [place] (1.005-1.025) Urine Protein (NEG-TRACE) MG/DL Urine Glucose (UA) (NEG) MG/DL Urine Ketones (NEG) MG/DL Urine Blood (NEG) Urine Nitrite (NEG) Ur Leukocyte Esterase (NEG) Urine RBC (0) /HPF Urine WBC (0-4) /HPF Ur Squamous Epith Cells /LPF Urine Bacteria /LPF Granular Casts /LPF Urine Mucus /LPF Salicylates (15-30) mg/dL Acetaminophen (<30) mcg/mL Ethyl Alcohol mg/dL Acetone, Qual (Negative) COVID-19 (ANISA) (Negative) COVID-19 Clin Com Hep Bs Antigen (Negative) Hep Bs Antibody (Nonreactive) Hep B Core Total Ab (Nonreactive) Hepatitis C Ab (EIA) (Nonreactive) HIV 1&2 Ab/P24 Ag 4thGn (Nonreactive) Blood Type Antibody Screen Crossmatch 05/29/21 Range/Units 04:43 WBC (4.8-10.8) X10*3/uL RBC (4.20-5.50) X10*6/uL Hgb (12.0-16.0) g/dl Hct (37.0-47.0) % MCV (80.0-98.0) fL MCH (27.0-33.0) pg MCHC (31.0-35.0) g/dl RDW (11.0-16.0) % Plt Count (160-400) X10*3/uL MPV (9.4-12.3) fL Immature Gran % (Auto) (0.0-0.4) % Neut % (Auto) (45-73) % Lymph % (Auto) (20-40) % Marshall % (Auto) (2-11) % Eos % (Auto) (0-4) % Baso % (Auto) (0-2) % Lymph # (Auto) (1.2-4.9) X10*3/uL Marshall # (Auto) (0.1-1.2) X10*3/uL Eos # (Auto) (0.0-0.4) X10*3/uL Baso # (Auto) (0.0-0.2) X10*3/uL Abs Immat Gran (auto) (0.00-0.03) X10*3/uL Absolute Neuts (auto) (2.0-8.3) x10*3/uL Absolute Nucleated RBC (0.0-0.012) X10*3/uL Nucleated RBC % (auto) (0.0-0.2) /100WBC Smear Tech's Comments PT (9.9-13.0) SEC INR (0.9-1.1) VBG pH (7.32-7.43) VBG pCO2 mmHg VBG pO2 mmHg VBG HCO3 (22-26) mmol/L VBG O2 Saturation % VBG Base Excess mmol/L Sodium (135-145) mmol/L Potassium (3.3-5.1) mmol/L Chloride (96-108) mmol/L Carbon Dioxide (22-29) mmol/L Anion Gap (12-20) BUN (9-16) mg/dL Creatinine (0.5-1.4) mg/dL Estim Creat Clear Calc Estimated GFR POC Glucose (60-115) mg/dL Random Glucose (60-115) mg/dL Lactic Acid (0.5-2.0) mmol/L Calcium (8.4-10.2) mg/dL Magnesium (1.6-2.6) mg/dL Total Bilirubin (0.0-1.0) mg/dL Direct Bilirubin (0.0-0.5) mg/dL AST (5-31) U/L ALT (0-31) U/L Alkaline Phosphatase (39-117) U/L Troponin I High Sens (<3.5-17.0) ng/L Total Protein (6.5-8.0) g/dL Albumin (3.5-5.0) g/dL Lipase (8-78) U/L TSH (0.32-4.0) uIU/mL Urine Color YELLOW Urine Appearance HAZY Urine pH 6.0 (5.0-8.0) Ur Specific [place] 1.025 (1.005-1.025) Urine Protein 2+ H (NEG-TRACE) MG/DL Urine Glucose (UA) NEG (NEG) MG/DL Urine Ketones 15 (NEG) MG/DL Urine Blood 3+ H (NEG) Urine Nitrite NEG (NEG) Ur Leukocyte Esterase NEG (NEG) Urine RBC 1-4 (0) /HPF Urine WBC 1-4 (0-4) /HPF Ur Squamous Epith Cells 1+ /LPF Urine Bacteria 2+ /LPF Granular Casts 0-2 /LPF Urine Mucus 1+ /LPF Salicylates (15-30) mg/dL Acetaminophen (<30) mcg/mL Ethyl Alcohol mg/dL Acetone, Qual (Negative) COVID-19 (ANISA) (Negative) COVID-19 Clin Com Hep Bs Antigen (Negative) Hep Bs Antibody (Nonreactive) Hep B Core Total Ab (Nonreactive) Hepatitis C Ab (EIA) (Nonreactive) HIV 1&2 Ab/P24 Ag 4thGn (Nonreactive) Blood Type Antibody Screen Crossmatch Critical Care Time Critical Care Time Total Critical Care Time: 180 Attestation: Over 180 minutes have been spent in direct patient care, stabilization, consult Discharge Plan Discharge Clinical Impression: Posterior reversible encephalopathy syndrome, Necrosis, Anemia, Acute on chronic kidney failure, Non-ST elevation LA (NSTEMI) Patient Disposition: Still a Patient
--- NOTE | 2021-05-29 01:37 | PM.CCN ---
Critical Care Event Note Summary Date of Service: 05/29/21 Code activated: No Narrative: Called to the ED stat by Dr. Menon to see Ms. Velazquez who was BIBA w likely Kenny?s angina. The patient is a 41 yo woman BIBA to the ED.? The patient's family had not seen her for four days and called EMS.? The patient was found face down, tongue swollen, unable to speak, altered mental status.? The family reported that the patient is a dialysis patient and a few years ago she had a stroke.? Her baseline is alert and oriented.? The patient lives by herself and drives. On arrival to the ED, the patient was clearly awake, but unable to speak.? Mental status seemed altered.? The tongue was grossly enlarged, not able to fit in the mouth, necrotic, and draining foul-smelling purulence.? See pictures in the ED physician's record. ?Heart rate was 68, blood pressure 145/101, respiratory rate 17, sat 100% on room air. ?The sub mandibular area in front and on both sides of the mouth seemed to be very tender; the patient would not let anyone touch her there.? Chest was clear.? There is no lower extremity edema. I was called to the ED.? On my exam, the patient was as above.? She seemed delirious and or disoriented and although clearly awake, was not purposefully interactive.? I was able to get a listen to her tracheal sounds, and they were clear.? She was breathing easy with Sat 100% on room air.? Her nares looked like they would fit a 6.5 or 7.0 endotracheal tube.? I assisted Dr. Menon with the intubation.? After adequate intravenous access was achieved, I gave the patient Robinul 0.2 mg.? After a good pulse oximetry waveform was secured, 6 L nasal cannula oxygen was applied.? I started sedating her with bolus doses of Precedex, 20 mcg at a time.? After about 100 mcg Precedex, I started adding propofol, 20-30 mg at a time.? I was at the immediate bedside the entire time, watching and listening to the patient's breathing and closely monitoring the pulse oximeter, which stayed at 100% pretty much throughout the procedure. After adequate initial sedation was achieved, the right nares was topicalized with the LMA MADgic atomizer.? An applicator stick was used as a probe to sound the Rt nares, and went all the way in.? Following that and further sedation, I advanced the 6.5 ETT thru the Rt nares and into the hypopharynx.? Dr. Menon introduced the FOB thru the ETT into the hypopharynx until the glottis could be visualized.? Eventually Dr. Menon advanced the FOB into the trachea and I then railroaded the ETT over the FOB into the trachea.? The FOB confirmed positon above the cariina.? The FOB was removed and tracheal intubation was confirmed by colorimetric ETCO2.? I then anesthetized the patient with a 70 mg bolus of propofol and asked the staff to start her on a propfol drip. The patient was hemod stable and maintained a sat of 100% throughout the procedure,? the patient tolerated the procedure well with no complications. Time:? 60+ min ([id number]) This case had a high probability of a clinically significant, sudden, or life threatening deterioration of this patient's condition which required my full and direct attention, intervention and personal management. Critical Care Time (minutes): 60
[2021-05-29] MEDS: propofoL 1,000 MG/100 ML VIAL 9.81 MG IVCONT ×7 (01:42→22:59)
[2021-05-29] MEDS: 0.9 % Sodium Chloride 3,000 ML 999 ML IVCONT (01:49)
[2021-05-29] MEDS: Midazolam HCl/PF 2 MG/2 ML VIAL 4 MG IVPUSH ×2 (01:53→03:29)
--- NOTE | 2021-05-29 01:55 | PC.NURSE ---
PATIENT'S FAMILY MEMBERS IN WAITING ROOM WHEN PATIENT FIRST ARRIVED. TALKING WITH THEM ABOUT PATIENTS CONDITION AND MEDICAL HISOTRY. PATIENT HAS A HISTORY OF A STROKE IN 2016, IS A DIALYSIS PATIENT AND HAS HAD A FAILED KIDNEY TRANSPLANT. PATIENT NORMALLY GOES TO [facility]. 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
[2021-05-29] MEDS: propofoL 200 MG/20 ML VIAL 50 MG IVPUSH (01:57)
[2021-05-29] MEDS: Piperacillin Sodium/Tazobactam 4.5 GM in 0.9 % Sodium Chloride 100 ML IV ×2 (02:05→14:54)
[2021-05-29] MEDS: propofoL 200 MG/20 ML VIAL 20 MG IVPUSH (02:06)
[2021-05-29] MEDS: Lidocaine HCl 4 % Laryng-O-Jet 4 ML 1 APPL TOPICAL (02:06)
[2021-05-29] MEDS: Clindamycin Phosphate/D5W 300 MG/50 ML PIGGYBACK 100 MG IV (02:08)
[2021-05-29 02:42] LABS: Ethanol < 10 mg/dL
[2021-05-29 02:51] LABS: Alanine Aminotransferase 21 U/L (0-31); Albumin Level 2.8 g/dL (3.5-5.0); Alkaline Phosphatase 43 U/L (39-117); Anion Gap 33 (12-20); Aspartate Amino Transferase 64 U/L (5-31); Bilirubin Direct 0.2 mg/dL (0.0-0.5); Bilirubin Total 0.4 mg/dL (0.0-1.0); Blood Urea Nitrogen 109 mg/dL (9-16); Calcium 9.2 mg/dL (8.4-10.2); Carbon Dioxide 9 mmol/L (22-29); Chloride 106 mmol/L (96-108); Estimated Glomerular Filt Rate 2; Glucose Random 112 mg/dL (60-115); Lipase 9 U/L (8-78); Magnesium 2.5 mg/dL (1.6-2.6); Potassium 3.9 mmol/L (3.3-5.1); Salicylate < 5.0 mg/dL (15-30); Sodium 144 mmol/L (135-145); Total Protein 5.2 g/dL (6.5-8.0)
[2021-05-29] MEDS: Phenylephrine HCL 1,000 MCG/10 ML SYRINGE 1000 MCG IVPUSH (02:55)
--- NOTE | 2021-05-29 02:55 | PC.NURSE ---
Addendum entered by Selin Gutiérrez 06/08/21 04:46: 00:30am first attempt to draw labs and blood cultures unsuccessful, multiple attempts made through the course of the evening. provider aware. Addendum entered by Selin Gutiérrez 06/01/21 23:58: Attempted to draw blood culture before administration of antibiotic unable too due to difficult stick. provider was aware. Original Note: pt arrived by ems at 00:03am . 18 placed in left ac, 20 placed in right ac. 12:51 am 0.2mg of gycyoprotate given, 1,000 LR hung wide, plan is for nasal intubation. precedex 10 mg given 00:58am, 1:01am a total of 60 precedex given. 1:02 20 mg given of precedex, 1:04am 30mg given of precedex, 1:05am 20 of propofol, 1:06am 20 of propofol, 1:09am 25mg of propofok , 1:11 precedex, 1:14 20mg of propofol, pt intubation at 1:16am 6.5 in R nasal. pt taken to ct scan, xray completed. pt is difficult stick . Phlebotomy called in attempted to draw labs but unsuccess full. Provider is aware. Saba placed.
[2021-05-29] MEDS: iohexoL 350 MG/ML 100 ML INFUS..BTL 60 ML IV (03:01)
[2021-05-29 03:06] LABS: TSH reflex Free T4 2.55 uIU/mL (0.32-4.0)
[2021-05-29 03:22] LABS: Acetaminophen LAB 3 mcg/mL (<30)
[2021-05-29 03:32] LABS: Acetone, serum QL Negative (Negative)
[2021-05-29 03:53] LABS: HBc Num1 0.08 S/CO (0.00-0.79); HBsAGNum1 0.15 S/CO (0.00-0.99); HIV AB/AG Nonreactive (Nonreactive); Hepatitis B Core Antibody Nonreactive (Nonreactive); Hepatitis B Surface Antigen Negative (Negative); ~HepC Num1 0.11 S/CO (0.00-0.79); ~Hepatitis C Antibody Nonreactive (Nonreactive)
--- NOTE | 2021-05-29 03:53 | PC.NURSE ---
call overnight pharmacy to verify Versed drip.
[2021-05-29] MEDS: Midazolam HCl/NS 50 MG/50 ML PLAST..BAG IVCONT ×2 (03:54→15:18)
[2021-05-29 03:55] LABS: Hemoglobin 7.7 g/dl (12.0-16.0); Mean Corpuscular Volume 88.9 fL (80.0-98.0); PLT CLUMP 1; SCAN SMEAR FLAG 1
--- NOTE | 2021-05-29 03:56 | PC.NURSE ---
Stated drip at 1:42 at 20mcq, increased to 30 mcq at 1:52. pt still need 2:15 increased to 40mcq, at 2:50 increase to max of 50mcq. Pt given versed per order. Saba placed and rectal temperature.
[2021-05-29 03:57] LABS: Basophils Percent Auto 0.1 % (0-2); Eosinophils Percent Auto 0.1 % (0-4); Hematocrit 24.9 % (37.0-47.0); Imm Gran Abs Auto 0.04 X10*3/uL (0.00-0.03); Imm Gran Pct Auto 0.5 % (0.0-0.4); Lymphocytes Absolute Auto 0.7 X10*3/uL (1.2-4.9); Lymphocytes Percent Auto 8.4 % (20-40); MANUAL DIFF FLAG SCAN; Mean Corpuscular HGB Conc 30.9 g/dl (31.0-35.0); Mean Corpuscular Hemoglobin 27.5 pg (27.0-33.0); Mean Platelet Volume 11.1 fL (9.4-12.3); Monocytes Absolute Auto 0.4 X10*3/uL (0.1-1.2); Monocytes Percent Auto 4.7 % (2-11); Neutrophils Absolute Auto 7.5 x10*3/uL (2.0-8.3); Neutrophils Percent Auto 86.2 % (45-73); Red Cell Distribution Width 16.1 % (11.0-16.0)
[2021-05-29 03:58] LABS: Venous Blood Gas Refer to POC result
[2021-05-29 03:59] LABS: VBG Base Excess -14.9 mmol/L; VBG HCO3 9 mmol/L (22-26); VBG pCO2 19 mmHg; VBG pH 7.28 (7.32-7.43); VBG pO2 204 mmHg
[2021-05-29 04:00] LABS: Platelet Count 181 X10*3/uL (160-400); Prothrombin Time 11.2 SEC (9.9-13.0); White Blood Count 8.7 X10*3/uL (4.8-10.8)
[2021-05-29 04:06] LABS: Glucose, Whole Blood 90 mg/dL (60-115)
--- NOTE | 2021-05-29 04:09 | PC.NURSE ---
Versed drip start at 2mg/hr. Provider at the bed side placing a central line.
[2021-05-29 04:14] LABS: SLIDE REVIEW VERIFIED
[2021-05-29 04:29] LABS: HBS Num1 0.43 mIU/mL (0-7.99); ~Hepatitis B Surface Antibody NONREACTIVE (Nonreactive)
[2021-05-29 04:43] LABS: MANUAL DIFF FLAG NO
[2021-05-29 04:44] LABS: Imm Gran Abs Auto 0.05 X10*3/uL (0.00-0.03); Imm Gran Pct Auto 0.5 % (0.0-0.4); Lymphocytes Absolute Auto 0.8 X10*3/uL (1.2-4.9); Lymphocytes Percent Auto 8.6 % (20-40); Mean Corpuscular HGB Conc 30.7 g/dl (31.0-35.0); Mean Corpuscular Hemoglobin 27.6 pg (27.0-33.0); Mean Corpuscular Volume 89.7 fL (80.0-98.0); Mean Platelet Volume 10.3 fL (9.4-12.3); Monocytes Absolute Auto 0.4 X10*3/uL (0.1-1.2); Monocytes Percent Auto 4.8 % (2-11); Neutrophils Absolute Auto 7.9 x10*3/uL (2.0-8.3); Neutrophils Percent Auto 86.1 % (45-73); Platelet Count 203 X10*3/uL (160-400); Red Blood Count 2.14 X10*6/uL (4.20-5.50); Red Cell Distribution Width 16.2 % (11.0-16.0); White Blood Count 9.2 X10*3/uL (4.8-10.8)
[2021-05-29 04:47] LABS: Hemoglobin 5.9 g/dl (12.0-16.0)
[2021-05-29 04:48] LABS: Hematocrit 19.2 % (37.0-47.0)
--- NOTE | 2021-05-29 04:48 | PC.NURSE ---
pt has a small skin tear to left knee. pt placed on warm blanket for core temp of 94.3.
[2021-05-29 04:54] LABS: Lactic Acid 0.7 mmol/L (0.5-2.0)
[2021-05-29 05:06] LABS: Appearance Urine HAZY; Color Urine YELLOW; Glucose Urine UA NEG (NEG); Leukocyte Esterase Urine NEG (NEG); Nitrite Urine NEG (NEG); Specific Gravity - Urine 1.025 (1.005-1.025); UACC Culture Trigger NO; Urine Blood 3+ (NEG); Urine Ketones 15 MG/DL (NEG); Urine Protein 2+ MG/DL (NEG-TRACE)
--- NOTE | 2021-05-29 05:10 | PC.NURSE ---
call out to [facility]'s transfer line @[phone]. [facility] is not taking any transfers
--- NOTE | 2021-05-29 05:12 | PC.NURSE ---
call out to [facility] @[phone] regarding transfer, and no beds available
--- NOTE | 2021-05-29 05:16 | PC.NURSE ---
First unit of RBC started abd transfusion. Attempt to get consent, provider stated pt is unable to respond no family available, this is emergent. Provider requesting transfusion to start. Charge nurse aware.
[2021-05-29 05:17] LABS: Bacteria Urine 2+ /LPF; Granular Casts Urine 0-2 /LPF; Mucus Urine 1+ /LPF; Squamous Epithelial Cell Urine 1+ /LPF
--- NOTE | 2021-05-29 05:17 | PC.NURSE ---
call out to [facility] @[phone], [facility] has no beds
--- NOTE | 2021-05-29 05:27 | PC.NURSE ---
call out to [facility] @[phone] regarding transfer, they are no longer accepting transfers
--- NOTE | 2021-05-29 05:32 | PC.NURSE ---
call out to [facility] at @[phone], not accepting any transfers
--- NOTE | 2021-05-29 05:33 | PC.NURSE ---
call out to [facility], not accepting any transfers
--- NOTE | 2021-05-29 05:37 | PC.NURSE ---
call out to [facility] at [phone], they are not accepting any transfers
--- NOTE | 2021-05-29 05:38 | PC.NURSE ---
pt titrate to 30mcq on propofol, Will continue to monitor.
[2021-05-29] MEDS: vancomycin HCL 1,000 MG in 0.9 % Sodium Chloride 250 ML 270 MG IV (05:42)
--- NOTE | 2021-05-29 05:58 | PC.NURSE ---
call out to [facility] @[phone] regarding transfer, naseem from admitting calling back
--- NOTE | 2021-05-29 06:05 | ECG_ITS ---
Test Reason : UNRESPONSIVE Blood Pressure : / mmHG Vent. Rate : 075 BPM Atrial Rate : 075 BPM P-R Int : 160 ms QRS Dur : 092 ms QT Int : 518 ms P-R-T Axes : 064 004 -78 degrees QTc Int : 578 ms Normal sinus rhythm Possible Left atrial enlargement T wave abnormality, consider inferior ischemia T wave abnormality, consider anterolateral ischemia Prolonged QT Abnormal ECG No previous ECGs available Referred By: Cat Menon Electronically Signed By:MARY CHADWICK MD
--- NOTE | 2021-05-29 06:19 | PC.NURSE ---
pt tritrated up 40mcq if propofol
--- NOTE | 2021-05-29 06:35 | PC.NURSE ---
pt titrated back to 50mcq on propofol
--- NOTE | 2021-05-29 07:32 | PC.NURSE ---
pt is nasogastric intubated to r nare with 6.5 tube. lungs -elvis upper lobes cta, elvis lower lobes diminished. abd soft/nt and hypoactive.
[2021-05-29] MEDS: Sodium Bicarbonate 8.4% 50 MEQ in Dextrose 5 % 950 ML IV (08:18)
--- NOTE | 2021-05-29 09:33 | PHA.MEDREC ---
Pharmacy Consult ? Medication Reconciliation Patient is currently intubated. Per MD note, patient lives a long and family only know [facility]. Most medications are prescribed by educational specialist Dr Martinez and Dr Miguel Britt. [facility] [place], who gave me the contact to the dialysis center. The dialysis center said they did not have an updated list of medications but sent what they have.The list had medication not filled since November per claim history. Contact [facility] to confirm that medications have not been filled there since November. Samantha Vásquez, BeniD
[2021-05-29] MEDS: Clindamycin Phosphate/D5W 900 MG/50 ML PIGGYBACK 50 MG IV (09:44)
[2021-05-29 10:35] LABS: Anion Gap 31 (12-20); Blood Urea Nitrogen 104 mg/dL (9-16); Calcium 8.4 mg/dL (8.4-10.2); Carbon Dioxide 11 mmol/L (22-29); Chloride 107 mmol/L (96-108); Creatinine Clr Calc Pharmacy 4.3; Estimated Glomerular Filt Rate 2; Glucose Random 92 mg/dL (60-115); Potassium 3.6 mmol/L (3.3-5.1); Sodium 145 mmol/L (135-145)
[2021-05-29] MEDS: niCARdipine HCL 25 MG in 0.9 % Sodium Chloride 250 ML 52 MG IVCONT ×3 (12:28→21:55)
[2021-05-29 13:25] LABS: Hematocrit 35.8 % (37.0-47.0); Hemoglobin 11.6 g/dl (12.0-16.0); Mean Corpuscular HGB Conc 32.4 g/dl (31.0-35.0); Mean Corpuscular Hemoglobin 27.8 pg (27.0-33.0); Mean Corpuscular Volume 85.6 fL (80.0-98.0); Mean Platelet Volume 9.8 fL (9.4-12.3); Platelet Count 150 X10*3/uL (160-400); Red Blood Count 4.18 X10*6/uL (4.20-5.50); Red Cell Distribution Width 15.9 % (11.0-16.0); White Blood Count 8.9 X10*3/uL (4.8-10.8)
--- NOTE | 2021-05-29 13:27 | PC.NURSE ---
At 0730 this am, Prashant Marlow placed call to [facility] ([facility]) for assistance in getting this patient accepted to a tertiary care facility for care. Call acknowledged at 0816 with [facility] repprting they will review state report of available beds and will support our efforts of seeing an accepting facility. At 1300 the [facility] suggested we reach to to [facility] which was done by CASSIE Delong. Unfortunately, [facility] took report and reported back that they have no available beds. This was reported back to Qamar at [facility] who suggested we try [facility]. Dr. Bender attempted with who reported they have no beds at this time. ED vacuum repairer Faviola asked to recall [place], , and [facility] to inquire about transfer without success. [facility] tried again without success. Will continue to attempt.
[2021-05-29 17:36] LABS: VBG Base Excess -10.9 mmol/L; VBG HCO3 13 mmol/L (22-26); VBG pCO2 24 mmHg; VBG pH 7.33 (7.32-7.43); VBG pO2 75 mmHg
[2021-05-29 18:03] LABS: Anion Gap 27 (12-20); Blood Urea Nitrogen 103 mg/dL (9-16); Calcium 7.9 mg/dL (8.4-10.2); Carbon Dioxide 14 mmol/L (22-29); Chloride 106 mmol/L (96-108); Creatinine Clr Calc Pharmacy 4.3; Estimated Glomerular Filt Rate 2; Glucose Random 137 mg/dL (60-115); Potassium 3.7 mmol/L (3.3-5.1); Sodium 143 mmol/L (135-145)
[2021-05-29] MEDS: Heparin Sodium,Porcine 5,000 UNIT/ML VIAL 5000 UNIT SUBCUT (18:05)
[2021-05-29] MEDS: Clindamycin Phosphate/D5W 600 MG/50 ML PIGGYBACK 100 MG IV (18:05)
[2021-05-29 18:09] LABS: Troponin-I High Sensitivity 559.1 ng/L (<3.5-17.0)
[2021-05-29 18:43] LABS: Venous Blood Gas Refer to POC result
--- NOTE | 2021-05-29 19:58 | P.HPCC_ITS ---
History of Present Illness Date of Service: 05/29/21 Attending physician on admission: Jhon Garcia Chief Complaint: Upper airway obstruction Ms. Velazquez is being admitted to the ICU after being intubated in the ED for presumed Kenny?s angina. History is obtained from the ED staff. The patient is a 41 yo woman BIBA to the ED early this morning.? The patient's family had not seen her for four days and called EMS.? The patient was found face down, tongue swollen, unable to speak, altered mental status.? The family reported that the patient is a dialysis patient and a few years ago she had a stroke.? Her baseline is alert and oriented.? The patient lives by herself and drives. On arrival to the ED, the patient was clearly awake, but unable to speak.? Mental status seemed altered.? The tongue was grossly enlarged, not able to fit in the mouth, necrotic, and draining foul-smelling purulence.? See pictures in the ED physician's record.? Heart rate was 68, blood pressure 145/101, respirato ry rate 17, sat 100% on room air.? The sub mandibular area in front and on both sides of the mouth seemed to be very tender; the patient would not let anyone touch her there.? Chest was clear.? There was no lower extremity edema. I was called to the ED.? On my exam, the patient was as above.? She was delirious and/or disoriented and although clearly awake, was not purposefully interactive.? Tracheal sounds were clear.? She was breathing easy with sat of 100% on room air.? I assisted Dr. Collazo in nasally intubating the trachea.? Subsequent to that, the patient underwent CT of the neck which showed ?Enlarged edematous tongue protrudes from the mouth demonstrating hypodensity suggestive of infarction.? Symmetric low attenuation thickening of the bilateral geniohyoid and anterior digastric musculature.? No evidence of deep space infection or abscess.? A CVL was placed and the patient was maintained on propofol and Versed sedation.? Head CT showed ?abnormal attenuation within the posterior circulation distribution involving the occipital lobes and left cerebellum characterized by subcortical white matter hypodensity, and areas of ill definition of the goncalves- white matter interface. The pattern and appearance would be typical for posterior reversible encephalopathy syndrome [PRES]. MRI could lend further specificity.? It also became clear that the patient was a peritoneal dialysis (PD) patient.? The ED and other staff spent the day calling over a dozen institutions with ENT expertise and PD capability to transfer the patient to but were unable to find an accepting facility.? Dr. Moran spoke with Dr. Nicholas at [facility] and he indicated that operative intervention is not indicated at this time.? Treatment is simply supportive with antibiotics and local measures to keep the tongue moist. The patient?s dialysis situation was d/w Dr. De La Torre and he indicated that if we couldn?t find a facility to transfer her to for PD, we would have to do hemodialysis here. Given the inability to transfer the patient, she is being admitted to our ICU.? On exam this afternoon, the patient is WDWN.? She is nasally intubated via a 6.5 ETT via the right nares.? Tongue is huge and protruding out of her mouth.? The foul odor from the ED is not noticeable (to me).? She is well sedated on propofol 50ug and Versed 2mg/hr.? She is slightly overbreathing the ventilator.? Sat 100% on 30%/+5.? HR 90, SR.? BP 138/94 on nicardipine drip.? She is afebrile.? CVL in her left neck.? Her right subclavian area shows a scar that I would guess was from an old permcath.? No JVD at 30-40?.? Chest is CTA.? RRR, normal S1 and S2, with no murmur or gallops.? The abdomen is benign with a peritoneal dialysis catheter.? She has good muscle mass.? There is no edema. LABORATORY DATA:? As below.? Notably, the white count is normal.? BUN/creatinine are 103/19.? Bicarb is 14, potassium is 3.7, phosphorus is 12.? Central venous blood gas shows 7.33/24/-10. IMPRESSION:? This is a 41-year-old woman with end-stage renal failure on peritoneal dialysis who presented with massive tongue swelling and altered mental status.? It sounds to me like this is not Kenny?s angina, but I?m not sure what the cause of the problem is. One possibility is that the patient had an anaphylactoid reaction to something, following which the patient somehow wound up on the floor unable to move.? Given that she was unable to dialyze, her renal indices were ifrah and she became uremic. In the ED, the patient was very hypertensive.? That could be the etiology of her PRES.? Or maybe the PRES came first, resulting in her presentation to the ED.? Either way, treatment of PRES is supportive.? Her BP is well controlled now.? W ill have neurology see her tomorrow. As far as her tongue goes, we have her on Zosyn, clindamycin, and vancomycin.? Assuming that Dr. Nicholas is correct, her tongue will heal, the necrotic parts will slough, and her tongue will gradually retract into her mouth.? In the meantime, the tongue needs to be kept moist to prevent further damage.? We will keep her sedated on the ventilator until it is safe to extubate. In terms of her dialysis, we will need to place a temp dialysis catheter or permcath to get her dialyzed.? Will d/w renal and Dr. Calderon tomorrow. Otherwise, usual supportive care. Critical care time (including multiple discussions with the ED staff, and nursing and medical staff leadership): 75+ minutes. PMFSH Social History Social History Household Members: Unknown / Unable to assess Housing: House Unable to assess alcohol history related to: Unknown Alcohol intake: unknown Patient Tobacco Use Status: Tobacco use Unknown Use of substances other than those prescribed or required for medical reasons: Unknown Currently Displaying Signs/Symptoms of Drug Intoxication Withdrawal: No Spiritual Healthcare Practices: unable to assess Restorationism Healthcare Practices: unable to assess Cultural Healthcare Practices: unable to assess Advance Directives: Yes Advance Directives on File: Yes Advance Directives Date on File: 05/29/21 Recently lost weight without trying: Unsure Meds Allergies Allergy/AdvReac Type Severity Reaction Status Date / Time No Known Allergies Allergy Verified 05/29/21 00:36 Active Medications: Current Medications Chlorhexidine Gluconate (Chlorhexidine Gluc Oral Rinse 15 Ml Mouthwash) 15 ml BUCCAL TID BELIA Fentanyl (Fentanyl Citrate/Pf 100 Mcg/2 Ml Vial) 100 mcg IVPUSH Q5M PRN PRN Reason: Pain, Severe (Pain Scale 7-10) Heparin Sodium (Porcine) (Heparin Sodium,Porcine 5,000 Unit/Ml Vial) 5,000 unit SUBCUT Q8H [facility] Last Admin: 05/29/21 18:05 Dose: 5,000 unit Documented by: Propofol (Diprivan) 1,000 mg in 100 mls @ 0 mls/hr IVCONT .Q0M [facility]; Protocol Last Admin: 05/29/21 19:13 Dose: 20 mcg/kg/min, 9.81 mls/hr Documented by: Sodium Bicarbonate 50 meq/ (Dextrose) 1,000 mls @ 50 mls/hr IV .Q20H [facility] Last Admin: 05/29/21 08:18 Dose: 50 mls/hr Documented by: Nicardipine HCl 25 mg/ Sodium (Chloride) 260 mls @ 0 mls/hr IVCONT .Q0M [facility]; Protocol Last Admin: 05/29/21 16:55 Dose: 5 mg/hr, 52 mls/hr Documented by: Fentanyl (Sublimaze/Ns) 1,000 mcg in 100 mls @ 0 mls/hr IVCONT .Q0M [facility]; Protocol Clindamycin Phosphate (Cleocin) 600 mg in 50 mls @ 100 mls/hr IV Q8H [facility] Last Infusion: 05/29/21 18:35 Dose: Infused Documented by: Piperacillin Sod/Tazobactam (Sod 2.25 gm/ Sodium Chloride) 50 mls @ 100 mls/hr IV Q8H [facility] Pantoprazole Sodium (Pantoprazole Sodium 40 Mg/10 Ml Vial) 40 mg IVPUSH DAILY@0630 [facility] Pharmacy Consult (Consult Rx Vancomycin Dosing) 1 each MISCELLANE DAILY PRN PRN Reason: Consult order Home Medications Medication Instructions Recorded Confirmed Last Taken Type clindamycin 1 %-benzoyl peroxide 5 1 applic TOPICAL QAM 05/29/21 05/29/21 Unknown History % topical gel losartan 100 mg tablet 50 mg PO BID 05/29/21 05/29/21 Unknown History tretinoin 0.025 % topical cream 1 applic TOPICAL BEDTIME 05/29/21 05/29/21 Unknown History Physical Exam Vital Signs: Vital Signs: Last Vital Signs Temp 96.4 F L 05/29/21 19:00 Pulse 88 05/29/21 19:00 Resp 12 05/29/21 19:00 BP 122/82 05/29/21 19:00 Pulse Ox 99 05/29/21 19:00 BMI result Body Mass Index 27.3 Results Labs CBC and Chem 7: 05/29/21 13:19 05/29/21 17:31 Labs: Laboratory Results - last 24 hr 05/29/21 05/29/21 05/29/21 00:28 02:20 02:21 MCV MCH MCHC RDW Plt Count MPV Immature Gran % (Auto) Neut % (Auto) Lymph % (Auto) [place] % (Auto) Eos % (Auto) Baso % (Auto) Lymph # (Auto) [place] # (Auto) Eos # (Auto) Baso # (Auto) Abs Immat Gran (auto) Absolute Neuts (auto) Absolute Nucleated RBC Nucleated RBC % (auto) Smear Tech's Comments PT INR VBG pH VBG pCO2 VBG pO2 VBG HCO3 VBG O2 Saturation VBG Base Excess Anion Gap 33 H Estim Creat Clear Calc 4.0 Estimated GFR 2 POC Glucose Random Glucose 112 Lactic Acid Calcium 9.2 Phosphorus Magnesium 2.5 Total Bilirubin 0.4 Direct Bilirubin 0.2 AST 64 H ALT 21 Alkaline Phosphatase 43 Total Creatine Kinase 3915 H Troponin I High Sens Total Protein 5.2 L Albumin 2.8 L Lipase 9 Procalcitonin TSH 2.55 Urine Color Urine Appearance Urine pH Ur Specific [place] Urine Protein Urine Glucose (UA) Urine Ketones Urine Blood Urine Nitrite Ur Leukocyte Esterase Urine RBC Urine WBC Ur Squamous Epith Cells Urine Bacteria Granular Casts Urine Mucus Salicylates < 5.0 L Acetaminophen 3 Ethyl Alcohol Acetone, Qual Negative COVID-19 (ANISA) Negative COVID-19 Clin Com See Note Hep Bs Antigen Hep Bs Antibody Hep B Core Total Ab Hepatitis C Ab (EIA) HIV 1&2 Ab/P24 Ag 4thGn Blood Type O Positive Antibody Screen NEGATIVE Crossmatch See Detail 05/29/21 05/29/21 05/29/21 02:21 02:21 03:49 MCV 88.9 MCH 27.5 MCHC 30.9 L RDW 16.1 H Plt Count 181 MPV 11.1 Immature Gran % (Auto) 0.5 H Neut % (Auto) 86.2 H Lymph % (Auto) 8.4 L [place] % (Auto) 4.7 Eos % (Auto) 0.1 Baso % (Auto) 0.1 Lymph # (Auto) 0.7 L [place] # (Auto) 0.4 Eos # (Auto) 0.0 Baso # (Auto) 0.0 Abs Immat Gran (auto) 0.04 H Absolute Neuts (auto) 7.5 Absolute Nucleated RBC 0.000 Nucleated RBC % (auto) 0.0 Smear Tech's Comments VERIFIED PT INR VBG pH VBG pCO2 VBG pO2 VBG HCO3 VBG O2 Saturation VBG Base Excess Anion Gap Estim Creat Clear Calc Estimated GFR POC Glucose Random Glucose Lactic Acid Calcium Phosphorus Magnesium Total Bilirubin Direct Bilirubin AST ALT Alkaline Phosphatase Total Creatine Kinase Troponin I High Sens Total Protein Albumin Lipase Procalcitonin TSH Urine Color Urine Appearance Urine pH Ur Specific [place] Urine Protein Urine Glucose (UA) Urine Ketones Urine Blood Urine Nitrite Ur Leukocyte Esterase Urine RBC Urine WBC Ur Squamous Epith Cells Urine Bacteria Granular Casts Urine Mucus Salicylates Acetaminophen Ethyl Alcohol < 10 Acetone, Qual COVID-19 (ANISA) COVID-19 Clin Com Hep Bs Antigen Negative Hep Bs Antibody NONREACTIVE Hep B Core Total Ab Nonreactive Hepatitis C Ab (EIA) Nonreactive HIV 1&2 Ab/P24 Ag 4thGn Nonreactive Blood Type Antibody Screen Crossmatch 05/29/21 05/29/21 05/29/21 03:49 03:52 04:03 MCV MCH MCHC RDW Plt Count MPV Immature Gran % (Auto) Neut % (Auto) Lymph % (Auto) [place] % (Auto) Eos % (Auto) Baso % (Auto) Lymph # (Auto) [place] # (Auto) Eos # (Auto) Baso # (Auto) Abs Immat Gran (auto) Absolute Neuts (auto) Absolute Nucleated RBC Nucleated RBC % (auto) Smear Tech's Comments PT 11.2 INR 1.0 VBG pH 7.28 L VBG pCO2 19 VBG pO2 204 VBG HCO3 9 L VBG O2 Saturation 99.0 VBG Base Excess -14.9 Anion Gap Estim Creat Clear Calc Estimated GFR POC Glucose 90 Random Glucose Lactic Acid Calcium Phosphorus Magnesium Total Bilirubin Direct Bilirubin AST ALT Alkaline Phosphatase Total Creatine Kinase Troponin I High Sens Total Protein Albumin Lipase Procalcitonin TSH Urine Color Urine Appearance Urine pH Ur Specific [place] Urine Protein Urine Glucose (UA) Urine Ketones Urine Blood Urine Nitrite Ur Leukocyte Esterase Urine RBC Urine WBC Ur Squamous Epith Cells Urine Bacteria Granular Casts Urine Mucus Salicylates Acetaminophen Ethyl Alcohol Acetone, Qual COVID-19 (ANISA) COVID-19 Clin Com Hep Bs Antigen Hep Bs Antibody Hep B Core Total Ab Hepatitis C Ab (EIA) HIV 1&2 Ab/P24 Ag 4thGn Blood Type Antibody Screen Crossmatch 05/29/21 05/29/21 05/29/21 04:35 04:35 04:35 MCV 89.7 MCH 27.6 MCHC 30.7 L RDW 16.2 H Plt Count 203 MPV 10.3 Immature Gran % (Auto) 0.5 H Neut % (Auto) 86.1 H Lymph % (Auto) 8.6 L [place] % (Auto) 4.8 Eos % (Auto) 0.0 Baso % (Auto) 0.0 Lymph # (Auto) 0.8 L [place] # (Auto) 0.4 Eos # (Auto) 0.0 Baso # (Auto) 0.0 Abs Immat Gran (auto) 0.05 H Absolute Neuts (auto) 7.9 Absolute Nucleated RBC 0.000 Nucleated RBC % (auto) 0.0 Smear Tech's Comments PT INR VBG pH VBG pCO2 VBG pO2 VBG HCO3 VBG O2 Saturation VBG Base Excess Anion Gap Estim Creat Clear Calc Estimated GFR POC Glucose Random Glucose Lactic Acid 0.7 Calcium Phosphorus Magnesium Total Bilirubin Direct Bilirubin AST ALT Alkaline Phosphatase Total Creatine Kinase Troponin I High Sens 837.7 H* Total Protein Albumin Lipase Procalcitonin TSH Urine Color Urine Appearance Urine pH Ur Specific [place] Urine Protein Urine Glucose (UA) Urine Ketones Urine Blood Urine Nitrite Ur Leukocyte Esterase Urine RBC Urine WBC Ur Squamous Epith Cells Urine Bacteria Granular Casts Urine Mucus Salicylates Acetaminophen Ethyl Alcohol Acetone, Qual COVID-19 (ANISA) COVID-19 Clin Com Hep Bs Antigen Hep Bs Antibody Hep B Core Total Ab Hepatitis C Ab (EIA) HIV 1&2 Ab/P24 Ag 4thGn Blood Type Antibody Screen Crossmatch 05/29/21 05/29/21 05/29/21 04:43 09:51 13:19 MCV 85.6 MCH 27.8 MCHC 32.4 RDW 15.9 Plt Count 150 L D MPV 9.8 Immature Gran % (Auto) Neut % (Auto) Lymph % (Auto) [place] % (Auto) Eos % (Auto) Baso % (Auto) Lymph # (Auto) [place] # (Auto) Eos # (Auto) Baso # (Auto) Abs Immat Gran (auto) Absolute Neuts (auto) Absolute Nucleated RBC 0.000 Nucleated RBC % (auto) 0.0 Smear Tech's Comments PT INR VBG pH VBG pCO2 VBG pO2 VBG HCO3 VBG O2 Saturation VBG Base Excess Anion Gap 31 H Estim Creat Clear Calc 4.3 Estimated GFR 2 POC Glucose Random Glucose 92 Lactic Acid Calcium 8.4 D Phosphorus 12.0 H Magnesium Total Bilirubin Direct Bilirubin AST ALT Alkaline Phosphatase Total Creatine Kinase Troponin I High Sens Total Protein Albumin Lipase Procalcitonin TSH Urine Color YELLOW Urine Appearance HAZY Urine pH 6.0 Ur Specific [place] 1.025 Urine Protein 2+ H Urine Glucose (UA) NEG Urine Ketones 15 Urine Blood 3+ H Urine Nitrite NEG Ur Leukocyte Esterase NEG Urine RBC 1-4 Urine WBC 1-4 Ur Squamous Epith Cells 1+ Urine Bacteria 2+ Granular Casts 0-2 Urine Mucus 1+ Salicylates Acetaminophen Ethyl Alcohol Acetone, Qual COVID-19 (ANISA) COVID-19 Clin Com Hep Bs Antigen Hep Bs Antibody Hep B Core Total Ab Hepatitis C Ab (EIA) HIV 1&2 Ab/P24 Ag 4thGn Blood Type Antibody Screen Crossmatch 05/29/21 05/29/21 05/29/21 17:30 17:31 17:31 MCV MCH MCHC RDW Plt Count MPV Immature Gran % (Auto) Neut % (Auto) Lymph % (Auto) [place] % (Auto) Eos % (Auto) Baso % (Auto) Lymph # (Auto) [place] # (Auto) Eos # (Auto) Baso # (Auto) Abs Immat Gran (auto) Absolute Neuts (auto) Absolute Nucleated RBC Nucleated RBC % (auto) Smear Tech's Comments PT INR VBG pH 7.33 VBG pCO2 24 VBG pO2 75 VBG HCO3 13 L VBG O2 Saturation 92.0 VBG Base Excess -10.9 Anion Gap 27 H Estim Creat Clear Calc 4.3 Estimated GFR 2 POC Glucose Random Glucose 137 H Lactic Acid Calcium 7.9 L Phosphorus Magnesium Total Bilirubin Direct Bilirubin AST ALT Alkaline Phosphatase Total Creatine Kinase Troponin I High Sens Total Protein Albumin Lipase Procalcitonin 4.60 TSH Urine Color Urine Appearance Urine pH Ur Specific [place] Urine Protein Urine Glucose (UA) Urine Ketones Urine Blood Urine Nitrite Ur Leukocyte Esterase Urine RBC Urine WBC Ur Squamous Epith Cells Urine Bacteria Granular Casts Urine Mucus Salicylates Acetaminophen Ethyl Alcohol Acetone, Qual COVID-19 (ANISA) COVID-19 Clin Com Hep Bs Antigen Hep Bs Antibody Hep B Core Total Ab Hepatitis C Ab (EIA) HIV 1&2 Ab/P24 Ag 4thGn Blood Type Antibody Screen Crossmatch 05/29/21 17:32 MCV MCH MCHC RDW Plt Count MPV Immature Gran % (Auto) Neut % (Auto) Lymph % (Auto) [place] % (Auto) Eos % (Auto) Baso % (Auto) Lymph # (Auto) [place] # (Auto) Eos # (Auto) Baso # (Auto) Abs Immat Gran (auto) Absolute Neuts (auto) Absolute Nucleated RBC Nucleated RBC % (auto) Smear Tech's Comments PT INR VBG pH VBG pCO2 VBG pO2 VBG HCO3 VBG O2 Saturation VBG Base Excess Anion Gap Estim Creat Clear Calc Estimated GFR POC Glucose Random Glucose Lactic Acid Calcium Phosphorus Magnesium Total Bilirubin Direct Bilirubin AST ALT Alkaline Phosphatase Total Creatine Kinase Troponin I High Sens 559.1 H* Total Protein Albumin Lipase Procalcitonin TSH Urine Color Urine Appearance Urine pH Ur Specific [place] Urine Protein Urine Glucose (UA) Urine Ketones Urine Blood Urine Nitrite Ur Leukocyte Esterase Urine RBC Urine WBC Ur Squamous Epith Cells Urine Bacteria Granular Casts Urine Mucus Salicylates Acetaminophen Ethyl Alcohol Acetone, Qual COVID-19 (ANISA) COVID-19 Clin Com Hep Bs Antigen Hep Bs Antibody Hep B Core Total Ab Hepatitis C Ab (EIA) HIV 1&2 Ab/P24 Ag 4thGn Blood Type Antibody Screen Crossmatch Imaging Radiologist's Impressions: Impressions Chest X-Ray 05/29/21 01:25 IMPRESSION: Endotracheal tube terminates 8.9 cm above the davidson. Clear lungs. Head CT 05/29/21 02:45 IMPRESSION: There is abnormal attenuation within the posterior circulation distribution involving the occipital lobes and left cerebellum characterized by subcortical white matter hypodensity, and areas of ill definition of the goncalves-white matter interface. The pattern and appearance would be typical for posterior reversible cephalopathy syndrome. MRI could lend further specificity. This critical result was discussed with Dr Cat Menon at 05/29/2021 3:11 AM and it was ascertained that the content and urgency of the report was understood at the time of direct communication. Soft Tissue Neck CT 05/29/21 03:00 IMPRESSION: * Enlarged edematous tongue protrudes from the mouth demonstrating hypodensity suggestive of infarction. * Symmetric low attenuation thickening of the bilateral geniohyoid and anterior digastric musculature. * No evidence of deep space infection or abscess. This critical result was discussed with Dr Cat Menon at 05/29/2021 3:11 AM and it was ascertained that the content and urgency of the report was understood at the time of direct communication. Chest X-Ray 05/29/21 04:15 FINDINGS/IMPRESSION: Endotracheal tube terminates 7.2 cm above the davidson. Left internal jugular central venous introducer terminates near the confluence of the brachiocephalic veins. No pneumothorax. Lungs are clear. No pleural effusion. Normal heart size and pulmonary vascularity. Head CT 05/29/21 14:36 IMPRESSION: No change in the abnormal attenuation within the bilateral posterior occipital lobes involving the subcortical white matter left greater than right. The findings are more patient relations representative of white matter encephalopathy then stroke. A routine outpatient follow-up MRI brain can be performed Critical Care Time Critical Care Time (minutes): 90
[2021-05-29] MEDS: Piperacillin Sodium/Tazobactam 2.25 GM in 0.9 % Sodium Chloride 50 ML IV (21:24)
[2021-05-30] VITALS (33 sets, daily range): BP systolic 107–184; BP diastolic 58–123; PULSE 81–114; RESP 11–22; TEMP 34.8–37.9; O2SAT 87–99; BMI 27.7
[2021-05-30] MEDS: Clindamycin Phosphate/D5W 600 MG/50 ML PIGGYBACK 100 MG IV ×3 (01:09→17:44)
[2021-05-30] MEDS: Heparin Sodium,Porcine 5,000 UNIT/ML VIAL 5000 UNIT SUBCUT ×3 (01:09→17:44)
[2021-05-30] MEDS: niCARdipine HCL 25 MG in 0.9 % Sodium Chloride 250 ML 52 MG IVCONT ×2 (02:14→07:05)
[2021-05-30] MEDS: propofoL 1,000 MG/100 ML VIAL 9.81 MG IVCONT ×2 (02:22→04:44)
[2021-05-30] MEDS: Sodium Bicarbonate 8.4% 50 MEQ in Dextrose 5 % 950 ML IV (02:27)
[2021-05-30 04:20] LABS: Hepatitis A Antibody IgM 0.18 Index (0-0.79); ~Hepatitis A Antibody IgM Nonreactive (Nonreactive)
[2021-05-30 05:30] LABS: VBG Base Excess -10.6 mmol/L; VBG HCO3 13 mmol/L (22-26); VBG pCO2 23 mmHg; VBG pH 7.35 (7.32-7.43); VBG pO2 69 mmHg
[2021-05-30 05:36] LABS: Venous Blood Gas Refer to POC result
[2021-05-30 05:40] LABS: Hematocrit 34.7 % (37.0-47.0); Hemoglobin 11.8 g/dl (12.0-16.0); Mean Corpuscular Hemoglobin 28.2 pg (27.0-33.0); Mean Corpuscular Volume 82.8 fL (80.0-98.0); Mean Platelet Volume 9.5 fL (9.4-12.3); Platelet Count 168 X10*3/uL (160-400); Red Blood Count 4.19 X10*6/uL (4.20-5.50); Red Cell Distribution Width 15.9 % (11.0-16.0); White Blood Count 7.8 X10*3/uL (4.8-10.8)
[2021-05-30] MEDS: Pantoprazole Sodium 40 MG/10 ML VIAL IVPUSH (05:54)
[2021-05-30] MEDS: Piperacillin Sodium/Tazobactam 2.25 GM in 0.9 % Sodium Chloride 50 ML IV ×3 (05:57→21:24)
[2021-05-30 05:58] LABS: Anion Gap 26 (12-20); Blood Urea Nitrogen 109 mg/dL (9-16); Calcium 7.8 mg/dL (8.4-10.2); Carbon Dioxide 14 mmol/L (22-29); Chloride 105 mmol/L (96-108); Creatinine Clr Calc Pharmacy 4.3; Estimated Glomerular Filt Rate 2; Glucose Random 97 mg/dL (60-115); Potassium 3.2 mmol/L (3.3-5.1); Sodium 142 mmol/L (135-145)
[2021-05-30] MEDS: propofoL 1,000 MG/100 ML VIAL 24.52 MG IVCONT ×4 (08:28→21:22)
--- NOTE | 2021-05-30 10:17 | P.CONNP_ITS ---
History of Present Illness Reason for Consult Consult date: 05/30/21 Reason for consult: ESRD Chief Complaint Chief complaint: Ludwigs angina,airway obstruction,acute resp History of Present Illness Narrative: 41 yo woman BIBA to the ED.The patient's family had not seen her for four days and called EMS.? The patient was found face down, tongue swollen, unable to speak, altered mental status.? She has ESRD and currently on CCPD she had a stroke.? Her baseline is alert and oriented.? The patient lives by herself and drives. On arrival to the ED, the patient was clearly awake, but unable to speak.?? The tongue was grossly enlarged, not able to fit in the mouth, necrotic, and draining foul-smelling purulence.? See pictures in the ED physician's record.? Heart rate was 68, blood pressure 145/101, respiratory rate 17, sat 100% on room air.? The sub mandibular area in front and on both sides of the mouth seemed to be very tender; She was intubated nasaly, underwent CT of the neck which showed ?Enlarged lizeth matous tongue protrudes from the mouth demonstrating hypodensity suggestive of infarction.? Symmetric low attenuation thickening of the bilateral geniohyoid and anterior digastric musculature.? No evidence of deep space infection or abscess.? Unable to transfer to ertiary facility and currently admitted to ICU Review of Systems Review of Systems Unable to obtain from patient Intubated PMFSH Social History Social History Household Members: Unknown / Unable to assess Housing: House Unable to assess alcohol history related to: Unknown Alcohol intake: unknown Patient Tobacco Use Status: Tobacco use Unknown Use of substances other than those prescribed or required for medical reasons: Unknown Currently Displaying Signs/Symptoms of Drug Intoxication Withdrawal: No Spiritual Healthcare Practices: unable to assess [facility] Practices: unable to assess Cultural Healthcare Practices: unable to assess Advance Directives: Yes Advance Directives on File: Yes Advance Directives Date on File: 05/29/21 Recently lost weight without trying: Unsure service: No Current occupational status: disabled Meds Allergies Allergy/AdvReac Type Severity Reaction Status Date / Time No Known Allergies Allergy Verified 05/29/21 00:36 Active Medications: Current Medications Chlorhexidine Gluconate (Chlorhexidine Gluc Oral Rinse 15 Ml Mouthwash) 15 ml BUCCAL TID [facility] Last Admin: 05/30/21 07:05 Dose: Not Given Documented by: Fentanyl (Fentanyl Citrate/Pf 100 Mcg/2 Ml Vial) 100 mcg IVPUSH Q5M PRN PRN Reason: Pain, Severe (Pain Scale 7-10) Heparin Sodium (Porcine) (Heparin Sodium,Porcine 5,000 Unit/Ml Vial) 5,000 unit SUBCUT Q8H [facility] Last Admin: 05/30/21 09:29 Dose: 5,000 unit Documented by: Propofol (Diprivan) 1,000 mg in 100 mls @ 0 mls/hr IVCONT .Q0M [facility]; Protocol Last Admin: 05/30/21 08:28 Dose: 50 mcg/kg/min, 24.52 mls/hr Documented by: Sodium Bicarbonate 50 meq/ (Dextrose) 1,000 mls @ 50 mls/hr IV .Q20H [facility] Last Admin: 05/30/21 02:27 Dose: 50 mls/hr Documented by: Nicardipine HCl 25 mg/ Sodium (Chloride) 260 mls @ 0 mls/hr IVCONT .Q0M [facility]; Protocol Last Titration: 05/30/21 08:39 Dose: 0 mg/hr, 0 mls/hr Documented by: Fentanyl (Sublimaze/Ns) 1,000 mcg in 100 mls @ 0 mls/hr IVCONT .Q0M [facility]; Protocol Clindamycin Phosphate (Cleocin) 600 mg in 50 mls @ 100 mls/hr IV Q8H [facility] Last Infusion: 05/30/21 10:02 Dose: Infused Documented by: Piperacillin Sod/Tazobactam (Sod 2.25 gm/ Sodium Chloride) 50 mls @ 100 mls/hr IV Q8H [facility] Last Infusion: 05/30/21 06:31 Dose: Infused Documented by: Pantoprazole Sodium (Pantoprazole Sodium 40 Mg/10 Ml Vial) 40 mg IVPUSH DAILY@0630 [facility] Last Admin: 05/30/21 05:54 Dose: 40 mg Documented by: Pharmacy Consult (Consult Rx Vancomycin Dosing) 1 each MISCELLANE DAILY PRN PRN Reason: Consult order Home Medications Medication Instructions Recorded Confirmed Last Taken Type clindamycin 1 %-benzoyl peroxide 5 1 applic TOPICAL QAM 05/29/21 05/29/21 Unknown History % topical gel losartan 100 mg tablet 50 mg PO BID 05/29/21 05/29/21 Unknown History tretinoin 0.025 % topical cream 1 applic TOPICAL BEDTIME 05/29/21 05/29/21 Unknown History Physical Exam Vital Signs: Last Vital Signs Temp 99.0 F 05/30/21 10:00 Pulse 90 05/30/21 10:00 Resp 15 05/30/21 10:00 BP 148/98 H 05/30/21 10:00 Pulse Ox 97 05/30/21 10:00 BMI result Body Mass Index 27.7 Const Other: Intubated Eyes: Pupils equal, round and reactive to light. ENT: Tongue is grossly enlarged, cannot fit in the mouth, necrotic, draining foul-smelling purulent fluid from the posterior aspect of the tongue Neck: Patient seems to be very tender when touched in the neck area especially under the chin CVS: Normal heart rate and rhythm. Pulses normal. Normal S1 and S2 Respiratory: No respiratory distress. Breath sounds normal. No Wheezing. No rales Abdomen: Soft and nontender. No rigidity. No distention, patient has a peritoneal dialysis catheter in the abdomen Skin: Skin warm and dry. Extremities: No lower extremity edema. Neuro: sedated Results Lab Results Result Diagrams: 05/31/21 05:27 05/31/21 05:27 Lab results: Chemistry 05/29/21 05/29/21 05/29/21 02:21 09:51 17:31 Sodium 144 145 143 Potassium 3.9 3.6 3.7 Carbon Dioxide 9 L* 11 L 14 L BUN 109 H 104 H 103 H Creatinine 20.85 H* 19.62 H* 19.04 H* Calcium 9.2 8.4 D 7.9 L Phosphorus 12.0 H 05/30/21 05:15 Sodium 142 Potassium 3.2 L Carbon Dioxide 14 L BUN 109 H Creatinine 19.64 H* Calcium 7.8 L Phosphorus Hematology 05/29/21 05/29/21 05/29/21 03:49 04:35 13:19 WBC 8.7 9.2 8.9 Hgb 7.7 L 5.9 L* D 11.6 L D Plt Count 181 203 150 L D 05/30/21 05:15 WBC 7.8 Hgb 11.8 L Plt Count 168 Urinalysis 05/29/21 04:43 Urine Color YELLOW Urine Appearance HAZY Urine pH 6.0 Ur Specific [place] 1.025 Urine Protein 2+ H Urine Glucose (UA) NEG Urine Ketones 15 Urine Blood 3+ H Urine Nitrite NEG Ur Leukocyte Esterase NEG Urine RBC 1-4 Urine WBC 1-4 Ur Squamous Epith Cells 1+ Assessment and Plan (1) ESRD (end stage renal disease): Status: Acute ESRD on Peritoneal dialysis Severe Acidosis Anemia Since we are unable to perform PD , wuld need to switch to hemodialysis Request IR to insert permcath Initiated HD once permcath is inserted Correct acisosis with Bicarab Change to D5W with 3 amp NaHCO3 Watch K Severe anemia Transfuse PRBCs as indicated Epogen per protocol Procedures Date of Service Date of Service: 05/30/21
[2021-05-30] MEDS: Sodium Bicarbonate 8.4% 150 MEQ in Dextrose 5 % 850 ML 50 MEQ IV (11:14)
--- NOTE | 2021-05-30 12:11 | PM.NEUROCN ---
History of Present Illness Data of Consult Service Date: 05/30/21 Primary Care Provider: Unknown Physician HPI Reason for consult: Encephalopathy 41 years old woman with underlying history of end-stage renal disease on peritoneal dialysis was found unresponsive at home and was brought to hospital. Apparently she has not been seen for few days before this. In emergency room she was noted to be confused to not able to communicate with her tongue severely swollen. She was nasally intubated. At that time her blood pressure was 145/101 and oxygenation was okay. Now she was on sedation and paralysis, intubated. Tongue was still swollen. There was no known history of seizure disorder. Review of Systems Review of Systems: Could not be done. [facility] Social History Social History Household Members: Unknown / Unable to assess Housing: House Unable to assess alcohol history related to: Unknown Alcohol intake: unknown Patient Tobacco Use Status: Tobacco use Unknown Use of substances other than those prescribed or required for medical reasons: Unknown Currently Displaying Signs/Symptoms of Drug Intoxication Withdrawal: No Spiritual Healthcare Practices: unable to assess [employer] Healthcare Practices: unable to assess Cultural Healthcare Practices: unable to assess Advance Directives: Yes Advance Directives on File: Yes Advance Directives Date on File: 05/29/21 Recently lost weight without trying: Unsure Meds Allergies Allergy/AdvReac Type Severity Reaction Status Date / Time No Known Allergies Allergy Verified 05/29/21 00:36 Active Medications: Current Medications Chlorhexidine Gluconate (Chlorhexidine Gluc Oral Rinse 15 Ml Mouthwash) 15 ml BUCCAL TID [facility] Last Admin: 05/30/21 07:05 Dose: Not Given Documented by: Fentanyl (Fentanyl Citrate/Pf 100 Mcg/2 Ml Vial) 100 mcg IVPUSH Q5M PRN PRN Reason: Pain, Severe (Pain Scale 7-10) Heparin Sodium (Porcine) (Heparin Sodium,Porcine 5,000 Unit/Ml Vial) 5,000 unit SUBCUT Q8H [facility] Last Admin: 05/30/21 09:29 Dose: 5,000 unit Documented by: Propofol (Diprivan) 1,000 mg in 100 mls @ 0 mls/hr IVCONT .Q0M [facility]; Protocol Last Titration: 05/30/21 11:14 Dose: 40 mcg/kg/min, 19.62 mls/hr Documented by: Nicardipine HCl 25 mg/ Sodium (Chloride) 260 mls @ 0 mls/hr IVCONT .Q0M [facility]; Protocol Last Titration: 05/30/21 08:39 Dose: 0 mg/hr, 0 mls/hr Documented by: Fentanyl (Sublimaze/Ns) 1,000 mcg in 100 mls @ 0 mls/hr IVCONT .Q0M [facility]; Protocol Clindamycin Phosphate (Cleocin) 600 mg in 50 mls @ 100 mls/hr IV Q8H [facility] Last Infusion: 05/30/21 10:02 Dose: Infused Documented by: Piperacillin Sod/Tazobactam (Sod 2.25 gm/ Sodium Chloride) 50 mls @ 100 mls/hr IV Q8H [facility] Last Infusion: 05/30/21 06:31 Dose: Infused Documented by: Sodium Bicarbonate 150 meq/ (Dextrose) 1,000 mls @ 50 mls/hr IV .Q20H [facility] Last Admin: 05/30/21 11:14 Dose: 50 mls/hr Documented by: Pantoprazole Sodium (Pantoprazole Sodium 40 Mg/10 Ml Vial) 40 mg IVPUSH DAILY@0630 [facility] Last Admin: 05/30/21 05:54 Dose: 40 mg Documented by: Pharmacy Consult (Consult Rx Vancomycin Dosing) 1 each MISCELLANE DAILY PRN PRN Reason: Consult order Home Medications Medication Instructions Recorded Confirmed Last Taken Type clindamycin 1 %-benzoyl peroxide 5 1 applic TOPICAL QAM 05/29/21 05/29/21 Unknown History % topical gel losartan 100 mg tablet 50 mg PO BID 05/29/21 05/29/21 Unknown History tretinoin 0.025 % topical cream 1 applic TOPICAL BEDTIME 05/29/21 05/29/21 Unknown History Physical Exam Vital Signs: Vital Signs: Last Vital Signs Temp 98.8 F 05/30/21 11:00 Pulse 89 05/30/21 11:00 Resp 13 05/30/21 11:00 BP 136/93 H 05/30/21 11:00 Pulse Ox 97 05/30/21 11:00 BMI result Body Mass Index 27.7 Neuro: Other: Sedated and intubated. When I open her eyes, her pupils were about 3 mm round reactive. There was little bit of roving motions. There was little bit of grimace with pain. Deep tendon reflexes were absent with flexor plantars. Tongue was severely swollen. Exam was limited. Results Labs CBC & Chem 7: 05/30/21 05:15 05/30/21 05:15 Labs: Short CBC 05/29/21 05/30/21 Range/Units 13:19 05:15 WBC 8.9 7.8 (4.8-10.8) X10*3/uL Hgb 11.6 L D 11.8 L (12.0-16.0) g/dl Hct 35.8 L D 34.7 L (37.0-47.0) % Plt Count 150 L D 168 (160-400) X10*3/uL BMP 05/29/21 05/30/21 17:31 05:15 Sodium 143 142 Potassium 3.7 3.2 L Chloride 106 105 Carbon Dioxide 14 L 14 L BUN 103 H 109 H Creatinine 19.04 H* 19.64 H* Calcium 7.9 L 7.[address] revealed widespread hypodense signal abnormalities mostly in posterior circulation area in supra inferior tentorial regions. Microbiology Microbiology Results: Microbiology 05/29/21 04:35 Blood - Venous Blood Culture - Preliminary Prelim: GPC Gram Stain only 05/29/21 04:35 Blood - Venous Blood Culture - Preliminary Prelim: GPC Gram Stain only Assessment and Plan (1) Encephalopathy: Status: Acute 41 years old woman with underlying history of end-stage renal disease on peritoneal dialysis was not seen for few days and then was found by family and brought to emergency room. On presentation, her tongue was somewhat necrotic and significantly swollen. I see mild bleeding on both lateral side of tongue. Despite that, her eyes were open but she was unable to communicate. This might have been partly due to swollen tongue. Her blood pressure was not exceedingly high. Despite that, her head CT reveals significant signal abnormalities that suggested a diffuse pathology. Hypertensive encephalopathy or PRES syndrome were possibilities but her blood pressure was not that high. Also, it would not explain her tongue swelling. Another possibility is that she might have a generalized seizure resulting aunt tongue bite which ultimately was inflamed and infected and swollen. A generalized seizure can also result in abnormal brain signal abnormalities of this nature but she might have an alternate pathology in her brain. Other than ICU care, I recommend an EEG and an MRI of brain to rule out underlying seizure tendency and also to define pathology noted on her CT scan. If any clinical indication of seizure is noted, I would recommend putting her on levetiracetam. Procedures Date of Service Date of Service: 05/30/21
[2021-05-30] MEDS: propofoL 1,000 MG/100 ML VIAL 17.17 MG IVCONT (12:28)
--- NOTE | 2021-05-30 12:52 | MHC.CM.PN ---
Addendum entered by Maggie Multani 05/30/21 16:14: Call placed to [facility] to inquire on PCP and peritoneal supply vendor. Per Maria E, RN at [facility]: information may be with pt's 'home visit field care manager.' She will email that department and call CM with information. Original Note: Pt in ICU and intubated - information obtained from EMR and phone call to HCP, Rikki. Per Rikki, he is the father of their twin boys aged 18, Hernan and Edward and is still involved in pt's life. I look after her Both children reside with Rikki. Rikki states pt was totally independent prior to admission, drove, administered her own peritoneal dialysis and had weekly visits from her [facility] RN but no other services or barriers. Rikki states he last saw pt on Friday, 05/25 when he took her to get her vehicle inspected. She was perfectly fine, no problems or issues. Rikki can transport pt home. HCP on file CM to follow for finalization of d/c needs
--- NOTE | 2021-05-30 14:29 | PM.CCPN ---
Subjective Subjective Date of Service: 05/30/21 Interval History: Ms. Velazquez was admitted to the ICU after being intubated in the ED yesterday bec of massive tongue swelling. The patient is a 41 yo woman BIBA to the ED early yesterday morning after being found face down, tongue swollen, unable to speak, with altered mental status.? The patient's family had not seen her for four days and called EMS.? The family reported that the patient is a dialysis patient and a few years ago she had a stroke.? Her baseline is alert and oriented.? She lives by herself and drives.? The only medication on her Med Rec is losartan. On arrival to the ED, the patient was clearly awake, but unable to speak.? Mental status was definitely altered.? She was agitated, non communicative, and was not making eye contact. ?The tongue was grossly enlarged, not able to fit in the mouth, necrotic, and draining foul-smelling purulence.? See pictures in the ED physician's record.? Heart rate was 68, blood pressure 145/101, respiratory rate 17, sat 100% on room air.? The sub mandibular area in front and on both sides of the mouth seemed to be very tender; the patient would not let anyone touch her there. ?The upper airway and the chest were clear.? There was no lower extremity edema. The patient was nasotracheally intubated, then underwent CT of the neck which showed ?Enlarged edematous tongue protrudes from the mouth demonstrating hypodensity suggestive of infarction.? Symmetric low attenuation thickening of the bilateral geniohyoid and anterior digastric musculature.? No evidence of deep space infection or abscess.? A CVL was placed and the patient was maintained on propofol and Versed sedation.? Head CT showed ?abnormal attenuation within the posterior circulation distribution involving the occipital lobes and left cerebellum characterized by subcortical white matter hypodensity, and areas of ill definition of the goncalves-white matter interface. The pattern and appearance would be typical for posterior reversible encephalopathy syndrome [PRES]. MRI could lend further specificity.? It also became clear that the patient was a peritoneal dialysis (PD) patient.? The ED staff were unable to find a hospital that would accept her to do PD.? Dr. Moran spoke with Dr. Nicholas at [facility] and he indicated that operative intervention for her tongue was not indicated at that time.? Treatment is simply supportive with antibiotics and local measures to keep the tongue moist. The patient?s dialysis situation was d/w Dr. De La Torre and he indicated that if we couldn?t find a facility to transfer her to for PD, we would have to do hemodialysis here. This morning the patient is sedated on propofol 40 ug.? She moves around to stimulation.? We did not do a wake up test.? She is off the nicardipine.? Heart rate is 83, blood pressure 144/105.? On PSV 5/21%/+5, RR 11, Vt 500cc, Ve 6.5L, PIP 11 cm, ETCO2 27 mm, Sat is 99%.? Central venous blood gas this morning showed 7.35/23/-10. ?Tmax 100.2?.? Pupils are unequal: 4 mm on the right, 3 mm on the left, and reactive.? No JVD at 40?.? Chest CTA with normal expiratory phase.? Abdomen is benign.? There is no edema.? Neuro exam is grossly nonfocal, albeit non interactive. LABORATORY DATA:? As below.? Notably, NOTE: ?No urine tox screen was sent from the ED.? We sent a sample this evening and it is positive for benzodiazepines (the patient was on a Versed drip yesterday) but negative for everything else, including negative for cocaine.? [Estimate from our lab indicates that our urine tox screen for cocaine would turn negative approximately 72 hours after the last use.] IMPRESSION: 1. 41-year-old woman with end-stage renal failure on peritoneal dialysis.? Cause of her renal failure is unknown to us.? Physical exam shows a scar in the right subclavian area suggestive of a past PermCath.? No need for dialysis today.? We?ll reevaluate tomorrow.? (If we?re rizwan, her tongue might heal enough to be extubated in short order, following which she might be able to go to a center where she could get peritoneal dialysis, and therefore avoid the need for placement of a hemodialysis catheter.) 2. Massive tongue swelling.? Cause is unclear, but the CT scan indicates that is not Kenny's angina.? Could be an angioedema reaction (?? Losartan), or could be sequelae of a seizure and her biting her tongue.? We have her on Zosyn, clindamycin and vancomycin.? Assuming that Dr. Nicholas is correct, her tongue will heal, the necrotic part still slough, and her tongue will gradually retract into her mouth.? In the meantime, the tongue needs to be kept moist to prevent further damage. 3. Encephalopathy of unclear etiology.? CT scan was suggestive of PRES.? It was noted that the patient was very hypertensive in the ED yesterday.? The encephalopathy could have been hypertensive encephalopathy.? And that hypertension could have caused PRES.? That hypertension was not likely to have been secondary to cocaine, given the above tox screen result. ?And given that the patient is only on losartan, it?s not likely that she has difficult to control refractory hypertension.? She?ll have an MRI later today.? Examined at the bedside and discussed at length w Dr. Barber. 4. Acute respiratory failure.? The patient has no ventilatory or oxygenation problem.? We?re keeping her intubated until her airway is safe. Otherwise, usual supportive care. Critical Care Time (minutes): 60 Physical Exam Vital Signs: Vital Signs: Last Vital Signs Temp 98.4 F 05/30/21 14:00 Pulse 89 05/30/21 14:00 Resp 13 05/30/21 14:00 BP 144/105 H 05/30/21 14:00 Pulse Ox 99 05/30/21 14:00 BMI result Body Mass Index 27.7 Objective Data Labs CBC & Chem 7: 05/30/21 05:15 05/30/21 05:15 Labs: Laboratory Results - last 24 hr 05/29/21 05/29/21 05/29/21 02:20 02:21 17:30 WBC RBC Hgb Hct MCV MCH MCHC RDW Plt Count MPV Absolute Nucleated RBC Nucleated RBC % (auto) VBG pH 7.33 VBG pCO2 24 VBG pO2 75 VBG HCO3 13 L VBG O2 Saturation 92.0 VBG Base Excess -10.9 Sodium Potassium Chloride Carbon Dioxide Anion Gap BUN Creatinine Estim Creat Clear Calc Estimated GFR Random Glucose Calcium Troponin I High Sens Procalcitonin Hepatitis A IgM Ab Nonreactive Crossmatch See Detail 05/29/21 05/29/21 05/29/21 17:31 17:31 17:32 WBC RBC Hgb Hct MCV MCH MCHC RDW Plt Count MPV Absolute Nucleated RBC Nucleated RBC % (auto) VBG pH VBG pCO2 VBG pO2 VBG HCO3 VBG O2 Saturation VBG Base Excess Sodium 143 Potassium 3.7 Chloride 106 Carbon Dioxide 14 L Anion Gap 27 H BUN 103 H Creatinine 19.04 H* Estim Creat Clear Calc 4.3 Estimated GFR 2 Random Glucose 137 H Calcium 7.9 L Troponin I High Sens 559.1 H* Procalcitonin 4.60 Hepatitis A IgM Ab Crossmatch 05/30/21 05/30/21 05/30/21 05:15 05:15 05:23 WBC 7.8 RBC 4.19 L Hgb 11.8 L Hct 34.7 L MCV 82.8 MCH 28.2 MCHC 34.0 RDW 15.9 Plt Count 168 MPV 9.5 Absolute Nucleated RBC 0.000 Nucleated RBC % (auto) 0.0 VBG pH 7.35 VBG pCO2 23 VBG pO2 69 VBG HCO3 13 L VBG O2 Saturation 90.0 VBG Base Excess -10.6 Sodium 142 Potassium 3.2 L Chloride 105 Carbon Dioxide 14 L Anion Gap 26 H BUN 109 H Creatinine 19.64 H* Estim Creat Clear Calc 4.3 Estimated GFR 2 Random Glucose 97 Calcium 7.8 L Troponin I High Sens Procalcitonin Hepatitis A IgM Ab Crossmatch Microbiology Microbiology Results: Microbiology 05/29/21 04:35 Blood - Venous Blood Culture - Preliminary Prelim: GPC Gram Stain only 05/29/21 04:35 Blood - Venous Blood Culture - Preliminary Prelim: GPC Gram Stain only Quality Stroke Does the patient have a stroke diagnosis?: No VTE Prior VTE?: No VTE Risk Level:: Medical - moderate - high VTE Device Contraindication: N/A - Device Ordered VTE Drug Contraindication: N/A - Med Ordered Critical Care Time Critical Care Time (minutes): 60
[2021-05-30] MEDS: Rocuronium Bromide 50 MG/5 ML VIAL IVPUSH (16:40)
[2021-05-30 19:08] LABS: Amphetamine Screen Urine Not Detected (Not Detect); Barbiturates, Urine Not Detected (Not Detect); Benzodiazepines Screen Urine POSITIVE (Not Detect); Cannabinoid Screen Urine Not Detected (Not Detect); Cocaine Screen Urine Not Detected (Not Detect); Fentanyl, urine Not Detected (Not Detect); Opiate Screen Urine Not Detected (Not Detect); Phencyclidine Screen Urine Not Detected (Not Detect)
[2021-05-30] MEDS: niCARdipine HCL 25 MG in 0.9 % Sodium Chloride 250 ML 78 MG IVCONT ×2 (20:04→23:11)
[2021-05-31] VITALS (29 sets, daily range): BP systolic 106–170; BP diastolic 62–106; PULSE 87–114; RESP 10–19; TEMP 35–37.1; O2SAT 94–97; BMI 27.8
[2021-05-31] MEDS: propofoL 1,000 MG/100 ML VIAL 24.52 MG IVCONT ×7 (01:07→23:50)
[2021-05-31] MEDS: Clindamycin Phosphate/D5W 600 MG/50 ML PIGGYBACK 100 MG IV ×2 (01:08→08:36)
[2021-05-31] MEDS: Heparin Sodium,Porcine 5,000 UNIT/ML VIAL 5000 UNIT SUBCUT ×3 (01:11→19:13)
[2021-05-31] MEDS: niCARdipine HCL 25 MG in 0.9 % Sodium Chloride 250 ML 78 MG IVCONT ×4 (02:23→12:52)
[2021-05-31] MEDS: Piperacillin Sodium/Tazobactam 2.25 GM in 0.9 % Sodium Chloride 50 ML IV (05:16)
[2021-05-31] MEDS: Sodium Bicarbonate 8.4% 150 MEQ in Dextrose 5 % 850 ML 50 MEQ IV ×2 (05:29→23:50)
[2021-05-31] MEDS: Pantoprazole Sodium 40 MG/10 ML VIAL IVPUSH (05:31)
[2021-05-31 05:33] LABS: VBG Base Excess -10.5 mmol/L; VBG HCO3 12 mmol/L (22-26); VBG pCO2 20 mmHg; VBG pH 7.38 (7.32-7.43); VBG pO2 69 mmHg
[2021-05-31 05:46] LABS: Venous Blood Gas Refer to POC result
[2021-05-31 06:03] LABS: Hematocrit 35.9 % (37.0-47.0); Hemoglobin 12.3 g/dl (12.0-16.0); Mean Corpuscular HGB Conc 34.3 g/dl (31.0-35.0); Mean Corpuscular Volume 81.8 fL (80.0-98.0); Mean Platelet Volume 9.6 fL (9.4-12.3); Platelet Count 167 X10*3/uL (160-400); Red Blood Count 4.39 X10*6/uL (4.20-5.50); Red Cell Distribution Width 15.8 % (11.0-16.0); White Blood Count 8.3 X10*3/uL (4.8-10.8)
[2021-05-31 06:23] LABS: Albumin Level 2.6 g/dL (3.5-5.0); Anion Gap 29 (12-20); Blood Urea Nitrogen 113 mg/dL (9-16); Calcium 7.6 mg/dL (8.4-10.2); Carbon Dioxide 13 mmol/L (22-29); Chloride 102 mmol/L (96-108); Creatinine Clr Calc Pharmacy 4.3; Estimated Glomerular Filt Rate 2; Glucose Random 93 mg/dL (60-115); Magnesium 2.4 mg/dL (1.6-2.6); Phosphorus 11.6 mg/dL (2.7-4.5); Sodium 141 mmol/L (135-145)
[2021-05-31] MEDS: Potassium Chloride/H20 40 MEQ/100 ML PIGGYBACK 100 MEQ IV (08:36)
[2021-05-31] MEDS: Chlorhexidine Gluc Oral Rinse 15 ML MOUTHWASH BUCCAL ×3 (08:36→22:03)
--- NOTE | 2021-05-31 10:21 | EEG_ITS ---
This is a 16-channel EEG with an EKG lead. Patient is intubated and on propofol. Propofol drip was decreased, but could not be stopped for this EEG for some reason. Background EEG rhythm was low amplitude about 14 to 12 hertz with superimposed theta to delta range slowing. No definite asymmetry, paroxysmal tendency, sharp waves, or spikes were noted. Cardiac lead does not reveal any significant abnormality. Photic stimulation and hyperventilation were not performed. IMPRESSION: Limited EEG revealing generalized slowing, but no indication of any active seizure disorder. MD MARY KATE Santos/ROMAN / [id number]
--- NOTE | 2021-05-31 10:26 | PM.PNNEP ---
Subjective Subjective Date of Service: 05/31/21 Interval history: Events noted More awake Physical Exam Vital Signs: Vital Signs: Last Vital Signs Temp 98.4 F 05/31/21 10:00 Pulse 108 H 05/31/21 10:00 Resp 13 05/31/21 10:00 BP 132/90 H 05/31/21 10:00 Pulse Ox 96 05/31/21 10:00 BMI result Body Mass Index 27.8 Const: Other: Intubated Eyes: Pupils equal, round and reactive to light. ENT: Tongue is grossly enlarged, cannot fit in the mouth, necrotic, draining foul-smelling purulent fluid from the posterior aspect of the tongue Neck: Patient seems to be very tender when touched in the neck area especially under the chin CVS: Normal heart rate and rhythm. Pulses normal. Normal S1 and S2 Respiratory: No respiratory distress. Breath sounds normal. No Wheezing. No rales Abdomen: Soft and nontender. No rigidity. No distention, patient has a peritoneal dialysis catheter in the abdomen Skin: Skin warm and dry. Extremities: No lower extremity edema. Neuro: sedated Objective Data Labs CBC & Chem 7: 05/31/21 05:27 05/31/21 05:27 Labs: Laboratory Results - last 24 hr 05/30/21 05/31/21 05/31/21 18:45 05:26 05:27 WBC 8.3 RBC 4.39 Hgb 12.3 Hct 35.9 L MCV 81.8 MCH 28.0 MCHC 34.3 RDW 15.8 Plt Count 167 MPV 9.6 Absolute Nucleated RBC 0.000 Nucleated RBC % (auto) 0.0 VBG pH 7.38 VBG pCO2 20 VBG pO2 69 VBG HCO3 12 L VBG O2 Saturation 89.0 VBG Base Excess -10.5 Sodium Potassium Chloride Carbon Dioxide Anion Gap BUN Creatinine Estim Creat Clear Calc Estimated GFR Random Glucose Calcium Phosphorus Magnesium Albumin Urine Opiates Screen Not Detected Urine Fentanyl Screen Not Detected Ur Barbiturates Screen Not Detected Ur Phencyclidine Scrn Not Detected Ur Amphetamines Screen Not Detected U Benzodiazepines Scrn POSITIVE H Urine Cocaine Screen Not Detected U Marijuana (THC) Screen Not Detected 05/31/21 05:27 WBC RBC Hgb Hct MCV MCH MCHC RDW Plt Count MPV Absolute Nucleated RBC Nucleated RBC % (auto) VBG pH VBG pCO2 VBG pO2 VBG HCO3 VBG O2 Saturation VBG Base Excess Sodium 141 Potassium 3.0 L Chloride 102 Carbon Dioxide 13 L Anion Gap 29 H BUN 113 H Creatinine 19.51 H* Estim Creat Clear Calc 4.3 Estimated GFR 2 Random Glucose 93 Calcium 7.6 L Phosphorus 11.6 H Magnesium 2.4 Albumin 2.6 L Urine Opiates Screen Urine Fentanyl Screen Ur Barbiturates Screen Ur Phencyclidine Scrn Ur Amphetamines Screen U Benzodiazepines Scrn Urine Cocaine Screen U Marijuana (THC) Screen Microbiology Microbiology Results: Microbiology 05/29/21 04:35 Blood - Venous Blood Culture - Preliminary Prelim: GPC Gram Stain only 05/29/21 04:35 Blood - Venous Blood Culture - Preliminary Prelim: GPC Gram Stain only Procedures Date of Service Date of Service: 05/31/21 Assessment & Plan Assessment and plan (1) ESRD (end stage renal disease): Status: Acute Assessment and Plan: ESRD on Peritoneal dialysis Severe Acidosis Anemia Since we are unable to perform PD , wuld need to switch to hemodialysis Request IR to insert permcath Initiated HD once permcath is inserted Correct acisosis with Bicarab Change to D5W with 3 amp NaHCO3 Watch K Severe anemia Transfuse PRBCs as indicated Epogen per protocol Time Spent With Patient Time: Total time spent is greater than 50% in coordination of care (as documented) at patient's floor/unit and/or counseling patient: Time with patient: 15 - 24 minutes Progress Note: Quality Stroke Does the patient have a stroke diagnosis?: No
--- NOTE | 2021-05-31 10:35 | MHC.CM.PN ---
Patient remains nasally intubated/vented in ICU. Patient is from home without services. Requires peritoneal dialysis at baseline. Dr Garcia will order an EEG today for question of seizure activity. Continue to monitor for d/c needs.
[2021-05-31] MEDS: Ampicillin Sodium/Sulbactam Na 3 GM in 0.9 % Sodium Chloride 100 ML IV (14:43)
[2021-05-31] MEDS: niCARdipine HCL 25 MG in 0.9 % Sodium Chloride 250 ML 52 MG IVCONT ×2 (14:43→22:02)
[2021-05-31] MEDS: fentaNYL citrate/PF 100 MCG/2 ML VIAL IVPUSH ×5 (16:45→23:50)
--- NOTE | 2021-05-31 21:08 | P.PNCC_ITS ---
Subjective Subjective Date of Service: 05/31/21 Interval History: Ms. Velazquez was admitted to the ICU on May 29 after being intubated in the ED yesterday bec of massive tongue swelling. The patient is a 41 yo woman BIBA to the ED early May 29 after being found face down, tongue swollen, unable to speak, with altered mental status.? The patient's family had not seen her for four days and called EMS.? The family reported that the patient is a dialysis patient and a few years ago she had a stroke.? No known sz disorder.? Her baseline is alert and oriented.? She lives by herself and drives.? The only medication on her Med Rec is losar cherry. On arrival to the ED, the patient was clearly awake, but unable to speak.? Mental status was definitely altered.? She was agitated, non communicative, and was not making eye contact.? The tongue was grossly enlarged, not able to fit in the mouth, necrotic, and draining foul-smelling purulence.? See pictures in the ED physician's record.? Heart rate was 68, blood pressure 145/101, respiratory rate 17, sat 100% on room air.? The sub mandibular area in front and on both sides of the mouth seemed to be very tender; the patient would not let anyone touch her there.? The upper airway and the chest were clear.? There was no lower extremity edema. The patient was nasotracheally intubated, then underwent CT of the neck which showed ?Enlarged edematous tongue protrudes from the mouth demonstrating hypodensity suggestive of infarction.? Symmetric low attenuation thickening of the bilateral geniohyoid and anterior digastric musculature.? No evidence of deep space infection or abscess.? A CVL was placed and the patient was maintained on propofol and Versed sedation.? Head CT showed ?abnormal attenuation within the posterior circulation distribution involving the occipital lobes and left cerebellum characterized by subcortical white matter hypodensity, and areas of ill definition of the goncalves- white matter interface. The pattern and appearance would be typical for posterior reversible encephalopathy syndrome [PRES]. MRI could lend further specificity.? It also became clear that the patient was a peritoneal dialysis (PD) patient.? The ED staff were unable to find a hospital that would accept her to do PD.? Dr. Moran spoke with Dr. Nicholas at [facility] and he indicated that operative intervention for her tongue was not indicated at that time.? Treatment is simply supportive with antibiotics and local measures to keep the tongue moist. The patient?s dialysis situation was d/w Dr. De La Torre and he indicated that if we couldn?t find a facility to transfer her to for PD, we would have to do hemodialysis here.? The patient was therefore admitted to our ICU.? She was seen by Dr. Barber yesterday, and had an MRI which showed ?Expansile T2 FLAIR hyperintensity involving the bilateral occipital lobes, brainstem, and left cerebellar hemisphere. Changes are nonspecific but may be seen in the setting of posterior reversible encephalopathy syndrome (PRES).?? Dr. Barber felt that hypertensive encephalopathy or PRES were possibilities for her AMS.? Another possibility is that she might have had a generalized seizure resulting in a tongue bite which ultimately was inflamed and infected and swollen.? He recommended an EEG to rule out underlying seizure tendency, and levetiracetam if any sz activity. EEG was done today, results pending.? Grossly, no seizure activity, just low amplitude.? Otherwise, she?s been sedated on propofol at 50ug, and she?s on Bicarb drip (3 amps in D5W) at 50cc/hr.? I saw no sz activity, altho she does move around occ.? HR 86, SR.? BP135/88.? On PSV 6/21%/+5, RR is 11, Vt 480, Ve 5.6L, PIP 11cm, ETCO2 29mm, Sat 97%.? CVBG this morning showed 7.38/20/-10.? Pupils unequal, right side 5 mm, left side 4 mm, both readily reactive.? No JVD at 40 degrees.? Her tongue is no smaller and protrudes from her mouth no less th an when I first saw her in the ED. ?I don?t see any necrosis however.? Chest is CT.? Abdomen benign.? No edema.? Neuro:? No focal findings. LABORATORY DATA:? As below.? Notably, BUN/creatinine 113/19, bicarb 13, potassium 3.0, phosphorus 11.6.? (All little changed from yesterday.) IMPRESSION: 1. 41-year-old woman with end-stage renal failure on peritoneal dialysis.? Cause of her renal failure is unknown to us.? Physical exam shows a scar in the right subclavian area suggestive of a past PermCath.? No clear need for dialysis today.? We had IR place a permcath, and we?ll start HD tomorrow. 2. Massive tongue swelling.? Cause is unclear, but the CT scan indicates that is not Kenny's angina.? Looks like angioedema, but that resolves within hours of treatment.? This hasn?t changed in > 48 hrs.? At this point looking more likely to be sequelae of a seizure and her biting her tongue.? We had her on Zosyn, clindamycin and vancomycin.? This morning changed to Unasyn.? Assuming that Dr. Nicholas is correct, her tongue will heal, the necrotic part still slough, and her tongue will gradually retract into her mouth.? In the meantime, the tongue needs to be kept moist to prevent further damage. 3. Encephalopathy of unclear etiology.? CT scan was suggestive of PRES.? It was noted that the patient was very hypertensive in the ED.? The encephalopathy could have been hypertensive encephalopathy.? And that hypertension could have caused PRES.? That hypertension was not likely to have been secondary to cocaine, given the tox screen result.? And given that the patient is only on losartan, it?s not likely that she has difficult to control refractory hypertension.? Awaiting EEG reading and futher d/w Dr. Barber.? In the meantime, supportive care.? Nicardipine for SBP > 160. 4. Acute respiratory failure.? The patient has no ventilatory or oxygenation problem.? We?re keeping her intubated until her airway is safe. Otherwise, usual supportive care. Critical Care Time (minutes): 50 Physical Exam Vital Signs: Vital Signs: Last Vital Signs Temp 98.2 F 05/31/21 21:00 Pulse 87 05/31/21 21:00 Resp 12 05/31/21 21:00 BP 135/88 05/31/21 21:00 Pulse Ox 97 05/31/21 21:00 BMI result Body Mass Index 27.8 Objective Data Labs CBC & Chem 7: 05/31/21 05:27 05/31/21 05:27 Labs: Laboratory Results - last 24 hr 05/31/21 05/31/21 05/31/21 05:26 05:27 05:27 WBC 8.3 RBC 4.39 Hgb 12.3 Hct 35.9 L MCV 81.8 MCH 28.0 MCHC 34.3 RDW 15.8 Plt Count 167 MPV 9.6 Absolute Nucleated RBC 0.000 Nucleated RBC % (auto) 0.0 VBG pH 7.38 VBG pCO2 20 VBG pO2 69 VBG HCO3 12 L VBG O2 Saturation 89.0 VBG Base Excess -10.5 Sodium 141 Potassium 3.0 L Chloride 102 Carbon Dioxide 13 L Anion Gap 29 H BUN 113 H Creatinine 19.51 H* Estim Creat Clear Calc 4.3 Estimated GFR 2 Random Glucose 93 Calcium 7.6 L Phosphorus 11.6 H Magnesium 2.4 Albumin 2.6 L Microbiology Microbiology Results: Microbiology 05/29/21 04:35 Blood - Venous Blood Culture - Preliminary Staphylococcus species 05/29/21 04:35 Blood - Venous Blood Culture - Preliminary Staphylococcus species Quality Stroke Does the patient have a stroke diagnosis?: No VTE Prior VTE?: No VTE Risk Level:: Medical - moderate - high VTE Device Contraindication: N/A - Device Ordered VTE Drug Contraindication: N/A - Med Ordered Critical Care Time Critical Care Time (minutes): 60
[2021-06-01] VITALS (29 sets, daily range): BP systolic 99–153; BP diastolic 75–101; PULSE 82–103; RESP 10–15; TEMP 34.4–37.4; O2SAT 92–96; BMI 44.9
[2021-06-01] LABS: CDiff Gene PCR NEGATIVE (Negative)
[2021-06-01 00:56] LABS: Leukocytes Stool Qualitative NEGATIVE (NEGATIVE)
[2021-06-01] MEDS: niCARdipine HCL 25 MG in 0.9 % Sodium Chloride 250 ML 52 MG IVCONT ×5 (02:38→23:57)
[2021-06-01] MEDS: Heparin Sodium,Porcine 5,000 UNIT/ML VIAL 5000 UNIT SUBCUT ×3 (02:38→16:55)
[2021-06-01] MEDS: fentaNYL citrate/PF 100 MCG/2 ML VIAL IVPUSH ×4 (02:38→19:39)
[2021-06-01] MEDS: propofoL 1,000 MG/100 ML VIAL 24.52 MG IVCONT ×6 (04:27→22:43)
[2021-06-01] MEDS: fentaNYL citrate/NS 1,000 MCG/100 ML PLAST..BAG 5 MCG IVCONT (04:28)
[2021-06-01 06:02] LABS: Hematocrit 37.9 % (37.0-47.0); Mean Corpuscular HGB Conc 34.3 g/dl (31.0-35.0); Mean Corpuscular Hemoglobin 28.1 pg (27.0-33.0); Mean Platelet Volume 10.3 fL (9.4-12.3); Platelet Count 184 X10*3/uL (160-400); Red Blood Count 4.62 X10*6/uL (4.20-5.50); Red Cell Distribution Width 16.2 % (11.0-16.0); Venous Blood Gas Refer to POC result
[2021-06-01 06:03] LABS: VBG Base Excess -10.2 mmol/L; VBG HCO3 13 mmol/L (22-26); VBG pCO2 22 mmHg; VBG pH 7.36 (7.32-7.43); VBG pO2 69 mmHg
[2021-06-01] MEDS: Pantoprazole Sodium 40 MG/10 ML VIAL IVPUSH (06:05)
--- NOTE | 2021-06-01 06:11 | PC.NURSE ---
Assumed care from GHADA Arenas, at 1730. Patient was sedated on Propofol at 50 mcg/kg/min, and was arousable to tactile stimuli. MD confirmed appropriateness of oral care and chlorhexidine in setting of tongue edema which limits access to oral cavity, and which appeared macerated and with serosanguineous drainage and apparent open areas; patient was repeatedly showing nonverbal signs of pain with oral care, and was medicated with PRN fentanyl before repositioning and oral care, but even with PRN fentanyl, when patient was seen to be awake and alert during repostioning, she was asked whether she was in pain, and she nodded her head clearly to endorse her pain. Discussed patient's still apparent pain levels with PA, and PA gave ok to administer fenanyl gtt to address patient's pain level. Patient was started on 50 mcg / hour, but is still seen to awake to voice and was still endorsing pain, and this was titrated up to 100 mcg/hour, where it remains now. Patient with continued nasotracheal intubation with #6.5 NTT, and at 26 cm. Patient with PSV settings 6/5, breathing about 11--15 times per minute, with minute volumes abut 7.3, FiO2 21%, with SpO2 94-5%. Patient without accessory muscle use or difficulty breathing. Patient with clear LS and dim bases. Patient with distant heart sounds, hypertensive with SBP staying in 130-155 range while cardene was restarted for an SBP 157 and an elevated diastolic BP associated. Patient with Cardene running at 5 mg/hour. Patient also continues on sodium bicarbonate gtt. Patient with HD planned for today, has HD cath to the Right IJ, also has left upper abdominal peritoneal dialysis line, which was cleaned and dressed. Patient with sun catheter and some urine output, about 100 ccs of pale yellow urine. 2 BMs of dark brown mushy stool, sample sent for C Diff and WBC stool, and these were both returned negative.
[2021-06-01 06:44] LABS: Anion Gap 30 (12-20); Blood Urea Nitrogen 116 mg/dL (9-16); Calcium 7.9 mg/dL (8.4-10.2); Carbon Dioxide 13 mmol/L (22-29); Chloride 101 mmol/L (96-108); Creatinine Clr Calc Pharmacy 5.5; Estimated Glomerular Filt Rate 2; Glucose Random 80 mg/dL (60-115); Phosphorus 12.2 mg/dL (2.7-4.5); Potassium 3.2 mmol/L (3.3-5.1); Sodium 141 mmol/L (135-145)
[2021-06-01] MEDS: Chlorhexidine Gluc Oral Rinse 15 ML MOUTHWASH BUCCAL ×3 (08:28→21:09)
--- NOTE | 2021-06-01 09:55 | MHC.CLN ---
F/U PT IS INTUBATED AND SEDATED CURRENTLY PT WITHOUT OG/NG TUBE FOR NUTRITION DAY 3 OF NPO; HD PLANNED FOR TODAY IF TF NEEDED; RECOMMEND NEPRO AT MAX GOAL RATE 25ML/HR AND 240ML FREE WATER FLSUHES Q 6 HRS TO PROVIDE 1080KCALS (1727KCALS WITH SEDATION; 25KCALS/KG), 49G PROTEIN, 1876CC TOTAL FREE WATER FROM FORMULA AND FLUSHES (27ML/KG) START TF AT 20ML/HR AND INCREASE BY 10ML Q 4 HRS UNTIL MAX GOAL IS ACHIEVED MONITOR TOLERANCE, RESIDUALS AND LYTES
[2021-06-01] MEDS: fentaNYL citrate/NS 1,000 MCG/100 ML PLAST..BAG 17.5 MCG IVCONT ×3 (10:03→21:10)
[2021-06-01] MEDS: Alteplase Cath Clear 2 MG VIAL 3 MG INTRACATH (11:35)
--- NOTE | 2021-06-01 13:41 | MHC.CM.PN ---
Patient remains nasally intubated/vented in ICU. Patient is from home with outpatient peritoneal dialysis. Continue to monitor for d/c needs.
[2021-06-01] MEDS: Ampicillin Sodium/Sulbactam Na 3 GM in 0.9 % Sodium Chloride 100 ML IV (14:00)
--- NOTE | 2021-06-01 14:27 | P.PNNP_ITS ---
Subjective Subjective Date of Service: 06/01/21 Interval history: Dialyzed today PD catheter remains in place 2.5L UF Dialyzed against a 3K 2.5Ca bath Physical Exam Vital Signs: Vital Signs: Last Vital Signs Temp 98.1 F 06/01/21 14:00 Pulse 82 06/01/21 14:00 Resp 11 L 06/01/21 14:00 BP 115/87 06/01/21 14:00 Pulse Ox 95 06/01/21 14:00 BMI result Body Mass Index 44.9 Const: Other: Intubated Eyes: Pupils equal, round and reactive to light. ENT: Tongue is grossly enlarged, cannot fit in the mouth, necrotic, draining foul-smelling purulent fluid from the posterior aspect of the tongue Neck: Patient seems to be very tender when touched in the neck area especially under the chin CVS: Normal heart rate and rhythm. Pulses normal. Normal S1 and S2 Respiratory: No respiratory distress. Breath sounds normal. No Wheezing. No rales Abdomen: Soft and nontender. No rigidity. No distention, patient has a peritoneal dialysis catheter in the abdomen Skin: Skin warm and dry. Extremities: No lower extremity edema. Neuro: sedated Objective Data Labs CBC & Chem 7: 06/01/21 05:53 06/01/21 05:53 Labs: Laboratory Results - last 24 hr 05/31/21 05/31/21 06/01/21 20:29 20:29 05:53 WBC 7.0 RBC 4.62 Hgb 13.0 Hct 37.9 MCV 82.0 MCH 28.1 MCHC 34.3 RDW 16.2 H Plt Count 184 MPV 10.3 Absolute Nucleated RBC 0.000 Nucleated RBC % (auto) 0.0 VBG pH VBG pCO2 VBG pO2 VBG HCO3 VBG O2 Saturation VBG Base Excess Sodium Potassium Chloride Carbon Dioxide Anion Gap BUN Creatinine Estim Creat Clear Calc Estimated GFR Random Glucose Calcium Phosphorus Stool Leukocytes, Qual NEGATIVE C. difficile Tox B Gene NEGATIVE 06/01/21 06/01/21 05:53 05:55 WBC RBC Hgb Hct MCV MCH MCHC RDW Plt Count MPV Absolute Nucleated RBC Nucleated RBC % (auto) VBG pH 7.36 VBG pCO2 22 VBG pO2 69 VBG HCO3 13 L VBG O2 Saturation 89.0 VBG Base Excess -10.2 Sodium 141 Potassium 3.2 L Chloride 101 Carbon Dioxide 13 L Anion Gap 30 H BUN 116 H Creatinine 19.43 H* Estim Creat Clear Calc 5.5 Estimated GFR 2 Random Glucose 80 Calcium 7.9 L Phosphorus 12.2 H Stool Leukocytes, Qual C. difficile Tox B Gene Microbiology Microbiology Results: Microbiology 05/29/21 04:35 Blood - Venous Blood Culture - Final Staphylococcus epidermidis 05/29/21 04:35 Blood - Venous Blood Culture - Final Staphylococcus epidermidis Procedures Date of Service Date of Service: 06/01/21 Assessment & Plan Assessment and plan (1) ESRD (end stage renal disease): Status: Acute Assessment and Plan: ESRD on Peritoneal dialysis chronically Now with Severe Acidosis Transitioned from PD to iHD while admitted at [place] as PD services are note provided at this institution. 06/01/2021 first HD session. Hgb 13.0 today no EPO indicated Plan: - next HD planned Friday and will keep on MWF schedule - monitor renal panel - monitor acidosis - keep PD catheter in place as she will continue PD once outpatient. - OK to keep RIJ temp line for now for dialysis, no need for a permcath unless she has a prolonged hospitalization >10 days. Time Spent With Patient Time: Total time spent is greater than 50% in coordination of care (as documented) at patient's floor/unit and/or counseling patient: Time with patient: Greater than 35 minutes Progress Note: Quality Stroke Does the patient have a stroke diagnosis?: No
[2021-06-01] MEDS: dexAMETHasone sod phosphate 4 MG/ML VIAL 8 MG IVPUSH ×2 (16:35→21:09)
--- NOTE | 2021-06-01 19:27 | P.PNCC_ITS ---
Subjective Subjective Date of Service: 06/01/21 Interval History: Ms. Velazquez was admitted to the ICU on May 29 after being intubated in the ED yesterday bec of massive tongue swelling and AMS. The patient is a 41 yo woman BIBA to the ED early May 29 after being found face down, tongue swollen, unable to speak, with altered mental status.? The patient's family had not seen her for four days and called EMS.? The family reported that the patient is a dialysis patient and a few years ago she had a stroke.? No known sz disorder.? Her baseline is alert and oriented.? She lives by herself and drives.? The only medication on her Med Rec is losartan. On arrival to the ED, the patient was clearly awake, but unable to speak.? Mental status was definitely altered.? She was agitated, non communicative, and was not making eye contact.? The tongue was grossly enlarged, not able to fit in the mouth, necrotic, and draining foul-smelling purulence.? See pictures in the ED physician's record.? Heart rate was 68, blood pressure 145/101, respiratory rate 17, sat 100% on room air.? The sub mandibular area in front and on both sides of the mouth seemed to be very tender; the patient would not let anyone to uch her there.? The upper airway and the chest were clear.? There was no lower extremity edema. The patient was nasotracheally intubated, then underwent CT of the neck which showed ?Enlarged edematous tongue protrudes from the mouth demonstrating hypodensity suggestive of infarction.? Symmetric low attenuation thickening of the bilateral geniohyoid and anterior digastric musculature.? No evidence of deep space infection or abscess.? A CVL was placed and the patient was maintained on propofol and Versed sedation.? Head CT showed ?abnormal attenuation within the posterior circulation distribution involving the occipital lobes and left cerebellum characterized by subcortical white matter hypodensity, and areas of ill definition of the goncalves- white matter interface. The pattern and appearance would be typical for posterior reversible encephalopathy syndrome [PRES]. MRI could lend further specificity.? It also became clear that the patient was a peritoneal dialysis (PD) patient.? The ED staff were unable to find a hospital that would accept her to do PD.? Dr. Moran spoke with Dr. Nicholas at [facility] and he indicated that operative intervention for her tongue was not indicated at that time.? Treatment was simply supportive with antibiotics and local measures to keep the tongue moist. The patient?s dialysis situation was d/w Dr. De La Torre and he indicated that if we couldn?t find a facility to transfer her to for PD, we would have to do hemodialysis here.? The patient was therefore admitted to our ICU. The patient was seen by Dr. Barber on May 30, and had an MRI which showed ?Expansile T2 FLAIR hyperintensity involving the bilateral occipital lobes, brainstem, and left cerebellar hemisphere. Changes are nonspecific but may be seen in the setting of posterior reversible encephalopathy syndrome (PRES).?? Dr. Barber felt that hypertensive encephalopathy or PRES were possibilities for her AMS.? Another possibility is that she might have had a generalized seizure resulting in a tongue bite which ultimately was inflamed and infected and swollen.? He recommended an EEG to rule out underlying seizure tendency, and levetiracetam if any sz activity. EEG was done yesterday and showed generalized slowing, but no indication of any active seizure disorder.? A temporary hemodialysis catheter was placed late yesterday, and the patient started dialysis today. ?She?s been sedated on propofol at 50ug, and she?s on a Bicarb drip (3 amps in D5W) at 50cc/hr.? HR 98, SR.? BP129/81.? On AC 12/380/21/+5, RR is 14, Ve 6.6L, PIP 14cm, ETCO2 34mm, Sat 95%.? CVBG this morning showed 7.36/22/-10.? No JVD at 40 degrees.? Her tongue looks larger and more protruding from her mouth today.? The tip of her tongue, and area measuring about 3.5 x 1 cm, looks necrotic.? The superior surface of her tongue, about 2cm inside her mouth, looks viable and normal.? U nderneath her tongue, her lower teeth are wedged into the tongue, about 2-3 cm from the tip.? Chest is CTA.? Abdomen benign.? No central or LE edema.? Her entire left arm is markedly swollen; this is new from yest.? Duplex US was negative for DVT.? Neuro:? Opens eyes spont.? On the propofol drip, she?s noninteractive.? No focal findings. LABORATORY DATA:? As below.? All little changed from last 3 days. IMPRESSION: 1. 41-year-old woman with end-stage renal failure on peritoneal dialysis.? Cause of her renal failure is unknown to us.? Physical exam shows a scar in the right subclavian area suggestive of a past PermCath.? Dialyzed today w no proble m. 2. Massive tongue swelling.? Cause is unclear, but the CT scan indicates that is not Kenny's angina.? Looks like angioedema, but that resolves within hours of treatment.? This hasn?t changed since admission, > 72 hrs.? At this point looking more likely to be sequelae of a seizure and her biting her tongue.? We have her on Unasyn.? Added decadron.? D/W Dr. Nicholas again today ([phone]). ?He indicates that this could go on like this for a week.? She might need a tracheostomy.? Will revisit the situation next week. ?In the meantime, the tongue needs to be kept moist to prevent further damage. 3. Encephalopathy of unclear etiology.? CT scan was suggestive of PRES.? It was noted that the patient was very hypertensive in the ED.? The encephalopathy could have been hypertensive encephalopathy.? And that hypertension could have caused PRES.? That hypertension was not likely to have been secondary to cocaine, given the tox screen result.? And given that the patient is only on losartan, it?s not likely that she has difficult to control refractory hypertension.? Supportive care. 4. Uncontrolled HTN.? On nicardipine for SBP > 160. 5. Acute respiratory failure.? The patient has no ventilatory or oxygenation problem.? We?re keeping her intubated until her airway is safe. 6. Nutrition.? I put a 10Fr Kaofeed tube down her left nares with no problem.? Started on Nepro. Otherwise, usual supportive care. Critical Care Time (minutes): 60 Physical Exam Vital Signs: Vital Signs: Last Vital Signs Temp 99.3 F 06/01/21 19:00 Pulse 87 06/01/21 19:00 Resp 12 06/01/21 19:00 BP 127/86 06/01/21 19:00 Pulse Ox 93 06/01/21 19:00 BMI result Body Mass Index 44.9 Objective Data Labs CBC & Chem 7: 06/01/21 05:53 06/01/21 05:53 Labs: Laboratory Results - last 24 hr 05/31/21 05/31/21 06/01/21 20:29 20:29 05:53 WBC 7.0 RBC 4.62 Hgb 13.0 Hct 37.9 MCV 82.0 MCH 28.1 MCHC 34.3 RDW 16.2 H Plt Count 184 MPV 10.3 Absolute Nucleated RBC 0.000 Nucleated RBC % (auto) 0.0 VBG pH VBG pCO2 VBG pO2 VBG HCO3 VBG O2 Saturation VBG Base Excess Sodium Potassium Chloride Carbon Dioxide Anion Gap BUN Creatinine Estim Creat Clear Calc Estimated GFR Random Glucose Calcium Phosphorus Stool Leukocytes, Qual NEGATIVE C. difficile Tox B Gene NEGATIVE 06/01/21 06/01/21 05:53 05:55 WBC RBC Hgb Hct MCV MCH MCHC RDW Plt Count MPV Absolute Nucleated RBC Nucleated RBC % (auto) VBG pH 7.36 VBG pCO2 22 VBG pO2 69 VBG HCO3 13 L VBG O2 Saturation 89.0 VBG Base Excess -10.2 Sodium 141 Potassium 3.2 L Chloride 101 Carbon Dioxide 13 L Anion Gap 30 H BUN 116 H Creatinine 19.43 H* Estim Creat Clear Calc 5.5 Estimated GFR 2 Random Glucose 80 Calcium 7.9 L Phosphorus 12.2 H Stool Leukocytes, Qual C. difficile Tox B Gene Microbiology Microbiology Results: Microbiology 05/29/21 04:35 Blood - Venous Blood Culture - Final Staphylococcus epidermidis 05/29/21 04:35 Blood - Venous Blood Culture - Final Staphylococcus epidermidis Quality Stroke Does the patient have a stroke diagnosis?: No VTE Prior VTE?: No VTE Risk Level:: Medical - moderate - high VTE Device Contraindication: N/A - Device Ordered VTE Drug Contraindication: N/A - Med Ordered Critical Care Time Critical Care Time (minutes): 60
[2021-06-01] MEDS: Sodium Bicarbonate 8.4% 150 MEQ in Dextrose 5 % 850 ML 50 MEQ IV (21:17)
[2021-06-02] VITALS (34 sets, daily range): BP systolic 129–178; BP diastolic 79–115; PULSE 80–128; RESP 6–14; TEMP 34–37.2; O2SAT 93–98; BMI 29.7
[2021-06-02] MEDS: Heparin Sodium,Porcine 5,000 UNIT/ML VIAL 5000 UNIT SUBCUT ×3 (01:42→17:08)
[2021-06-02] MEDS: fentaNYL citrate/NS 1,000 MCG/100 ML PLAST..BAG 15 MCG IVCONT (02:53)
[2021-06-02] MEDS: propofoL 1,000 MG/100 ML VIAL 24.52 MG IVCONT ×4 (02:53→12:05)
[2021-06-02] MEDS: niCARdipine HCL 25 MG in 0.9 % Sodium Chloride 250 ML 52 MG IVCONT ×2 (04:19→17:29)
[2021-06-02] MEDS: fentaNYL citrate/NS 1,000 MCG/100 ML PLAST..BAG 20 MCG IVCONT (08:15)
[2021-06-02] MEDS: Chlorhexidine Gluc Oral Rinse 15 ML MOUTHWASH BUCCAL ×3 (08:15→19:44)
[2021-06-02] MEDS: niCARdipine HCL 25 MG in 0.9 % Sodium Chloride 250 ML 78 MG IVCONT ×3 (08:15→20:31)
[2021-06-02] MEDS: dexAMETHasone sod phosphate 4 MG/ML VIAL 8 MG IVPUSH ×2 (08:16→19:44)
[2021-06-02] MEDS: niCARdipine HCL 25 MG in 0.9 % Sodium Chloride 250 ML 104 MG IVCONT (11:13)
[2021-06-02] MEDS: dexmedeTOMIDidine HCL/NS 400 MCG/100 ML INFUS..BTL 17.72 MCG IVCONT ×2 (13:00→17:28)
[2021-06-02] MEDS: Ampicillin Sodium/Sulbactam Na 3 GM in 0.9 % Sodium Chloride 100 ML IV (13:12)
[2021-06-02] MEDS: Sodium Bicarbonate 8.4% 150 MEQ in Dextrose 5 % 850 ML 50 MEQ IV (15:36)
[2021-06-02 16:19] LABS: Anion Gap 23 (12-20); Blood Urea Nitrogen 65 mg/dL (9-16); Calcium 8.2 mg/dL (8.4-10.2); Carbon Dioxide 17 mmol/L (22-29); Chloride 98 mmol/L (96-108); Creatinine Clr Calc Pharmacy 7.4; Estimated Glomerular Filt Rate 4; Glucose Random 260 mg/dL (60-115); Potassium 3.7 mmol/L (3.3-5.1); Sodium 134 mmol/L (135-145)
--- NOTE | 2021-06-02 16:33 | PM.PNNEP ---
Subjective Subjective Date of Service: 06/02/21 Interval history: dialyzed yesterday Labs today BUN/Cr good response to HD Remains acidotic continues on bicarb gtt 50cc/hr edematous Physical Exam Vital Signs: Vital Signs: Last Vital Signs Temp 99.0 F 06/02/21 15:00 Pulse 108 H 06/02/21 15:00 Resp 7 L 06/02/21 15:00 BP 147/97 H 06/02/21 15:00 Pulse Ox 97 06/02/21 15:00 BMI result Body Mass Index 29.7 Const: Other: Intubated ENT: Tongue is grossly enlarged CVS: Normal heart rate and rhythm. Pulses normal. Normal S1 and S2 Respiratory: No respiratory distress. Breath sounds normal. No Wheezing. No rales Abdomen: Soft and nontender. No rigidity. No distention, patient has a peritoneal dialysis catheter in the abdomen Skin: Skin warm and dry. Extremities: Mild edema / anasarca Neuro: sedated Objective Data Labs CBC & Chem 7: 06/01/21 05:53 06/02/21 15:47 Labs: Laboratory Results - last 24 hr 06/02/21 15:47 Sodium 134 L Potassium 3.7 Chloride 98 Carbon Dioxide 17 L Anion Gap 23 H BUN 65 H Creatinine 11.74 H* Estim Creat Clear Calc 7.4 Estimated GFR 4 Random Glucose 260 H Calcium 8.2 L Microbiology Microbiology Results: Microbiology 05/29/21 04:35 Blood - Venous Blood Culture - Final Staphylococcus epidermidis 05/29/21 04:35 Blood - Venous Blood Culture - Final Staphylococcus epidermidis Procedures Date of Service Date of Service: 06/02/21 Assessment & Plan Assessment and plan (1) ESRD (end stage renal disease): Status: Acute Assessment and Plan: ESRD on Peritoneal dialysis chronically Now with Severe Acidosis and Azotemia Transitioned from PD to iHD while admitted at [place] as PD services are note provided at this institution. 06/01/2021 first HD session. Plan: - next HD planned Friday and will keep on MWF schedule - c/w bicarb gtt at low rate - monitor renal panel - monitor acidosis - keep PD catheter in place as she will continue PD once outpatient. - OK to keep RIJ temp line for now for dialysis, no need for a permcath unless she has a prolonged hospitalization >10 days. Time Spent With Patient Time: Total time spent is greater than 50% in coordination of care (as documented) at patient's floor/unit and/or counseling patient: Time with patient: Greater than 35 minutes Progress Note: Quality Stroke Does the patient have a stroke diagnosis?: No
[2021-06-02] MEDS: Ketorolac Tromethamine 30 MG/ML VIAL IVPUSH (19:37)
--- NOTE | 2021-06-02 21:33 | PM.CCPN ---
Subjective Subjective Date of Service: 06/02/21 Interval History: Ms. Velazquez was admitted to the ICU on May 29 after being intubated in the ED bec of massive tongue swelling and AMS. The patient is a 41 yo woman BIBA to the ED early May 29 after being found face down, tongue swollen, unable to speak, with altered mental status.? The patient's family had not seen her for four days and called EMS.? The family reported that the patient is a dialysis patient and a few years ago she had a stroke. ?She has ESRF and is on peritoneal dialysis (PD).? No known sz disorder.? Her baseline is alert and oriented.? She lives by herself and drives.? The only medication on her Med Rec is losartan. On arrival to the ED, the patient was clearly awake, but unable to speak.? Mental status was definitely altered.? She was agitated, non communicative, and was not making eye contact.? The tongue was grossly enlarged, not able to fit in the mouth, necrotic, and draining foul-smelling purulence.? See pictures in the ED physician's record.? Blood pressure was up into the 200s.? Sat 100% on room air.? The sub mandibular area in front and on both sides of the mouth seemed to be very tender; the patient would not let anyone touch her there.? The upper airway and the chest were clear.? There was no lower extremity edema. The patient was nasotracheally intubated, then underwent CT of the neck which showed ?Enlarged edematous tongue protrudes from the mouth demonstrating hypodensity suggestive of infarction.? Symmetric low attenuation thickening of the bilateral geniohyoid and anterior digastric musculature.? No evidence of deep space infection or abscess.? Head CT showed ?abnormal attenuation within the posterior circulation distribution involving the occipital lobes and left cerebellum characterized by subcortical white matter hypodensity, and areas of ill definition of the goncalves-white matter interface. The pattern and appearance would be typical for posterior reversible encephalopathy syndrome [PRES]. MRI could lend further specificity.? A CVL was placed and the patient was maintained on propofol and Versed sedation.? The ED staff were unable to find a hospital that would accept her to do PD or a hospital to manage her ENT situation.? Dr. Moran spoke with Dr. Nicholas at [facility] and he indicated that operative intervention for her tongue was not indicated at that time.? Treatment was simply supportive with antibiotics and local measures to keep the tongue moist.? The patient?s dialysis situation was d/w Dr. De La Torre and he indicated that if we couldn?t find a facility to transfer her to for PD, we would have to do hemodialysis here.? The patient was therefore admitted to our ICU. The patient was seen by Dr. Barber on May 30, and had an MRI which showed ?Expansile T2 FLAIR hyperintensity involving the bilateral occipital lobes, brainstem, and left cerebellar hemisphere. Changes are nonspecific but may be seen in the setting of posterior reversible encephalopathy syndrome (PRES).?? Dr. Barber felt that hypertensive encephalopathy or PRES were possibilities for her AMS.? Another possibility is that she might have had a generalized seizure resulting in a tongue bite which ultimately was inflamed and infected and swollen.? EEG showed generalized slowing, but no indication of any active seizure disorder. A temporary hemodialysis catheter was placed on May 31, and the patient had her first HD session yesterday. ?We turned the propofol and fentanyl off today and the patient woke up and was completely and appropriately responsive.? She was able to indicate the year of her and she vigorously denied voting for Trump.? We explained to her what happened, and she seemed comfortable with that.? We switched her to Precedex.? She continues on the Bicarb drip (3 amps in D5W) at 50cc/hr.? She?s breathing easy on PSV 5/21%/+5, with RR 9, Vt 800-1400cc, Ve 6L, ETCO2 32, Sat 96-99%.? HR 90-120, SR.? BP 172/115, on Nicardipine 10mg.? No JVD at 40?.? Chest is CTA.? She has no edema.? She c/o whole body pain, so we gave her 30mg toradol and that put her to sleep.? After she woke up, her tongue retracted slightly but noticeably into her mouth.? Her left arm is also less swollen today. LABORATORY DATA: As below.? Notably, bicarb 17, and BUN/creatinine 65/11 after dialysis yesterday. ?Glucose 260. IMPRESSION: 1. 41-year-old woman with end-stage renal failure on peritoneal dialysis.? Cause of her renal failure is unknown to us.? Physical exam shows a scar in the right subclavian area suggestive of a past PermCath.? Had HD yesterday w no problem. 2. Massive tongue swelling.? Cause is unclear, but the CT scan indicates that is not Kenny's angina.? It?s not angioedema, bec that usually resolves within hours of treatment.? Her tongue hasn?t changed since admission, > 4 days.? At this point looking more likely to be sequelae of a seizure and her biting her tongue.? We have her on Unasyn and Decadron.? D/W Dr. Nicholas ([phone]) again yesterday.? He indicates that this could go on for a couple of weeks.? She might need a tracheostomy.? Will revisit the situation next week.? In the meantime, the tongue needs to be kept moist to prevent further damage. 3. Encephalopathy of unclear etiology.? CT scan was suggestive of PRES.? It was noted that the patient was very hypertensive in the ED.? The encephalopathy could have been hypertensive encephalopathy.? And that hypertension could have caused PRES.? That hypertension was not likely to have been secondary to cocaine, given the tox screen result.? And given that the patient is only on losartan, it?s not likely that she has difficult to control refractory hypertension.? Regardless, the patient has woken up and seems mentally intact. 4. Uncontrolled HTN.? On nicardipine for SBP > 160. 5. Acute respiratory failure.? The patient has no ventilatory or oxygenation problem.? We?re keeping her intubated until her airway is safe. 6. Left arm swelling.? Had a negative CT today.? The swelling is better today.? I will repeat the Duplex scan tomorrow. 7. Nutrition.? Put a 10Fr Kaofeed tube down her left nares yesterday with no problem.? Now on goal rate Nepro. Otherwise, usual supportive care. Critical Care Time (minutes): 60 Physical Exam Vital Signs: Vital Signs: Last Vital Signs Temp 98.6 F 06/02/21 21:00 Pulse 80 06/02/21 21:00 Resp 9 L 06/02/21 21:00 BP 141/95 H 06/02/21 21:17 Pulse Ox 98 06/02/21 21:00 BMI result Body Mass Index 29.7 Objective Data Labs CBC & Chem 7: 06/01/21 05:53 06/02/21 15:47 Labs: Laboratory Results - last 24 hr 06/02/21 15:47 Sodium 134 L Potassium 3.7 Chloride 98 Carbon Dioxide 17 L Anion Gap 23 H BUN 65 H Creatinine 11.74 H* Estim Creat Clear Calc 7.4 Estimated GFR 4 Random Glucose 260 H Calcium 8.2 L Microbiology Microbiology Results: Microbiology 05/29/21 04:35 Blood - Venous Blood Culture - Final Staphylococcus epidermidis 05/29/21 04:35 Blood - Venous Blood Culture - Final Staphylococcus epidermidis Quality Stroke Does the patient have a stroke diagnosis?: No VTE Prior VTE?: No VTE Risk Level:: Medical - moderate - high VTE Device Contraindication: N/A - Device Ordered VTE Drug Contraindication: N/A - Med Ordered Critical Care Time Critical Care Time (minutes): 60
[2021-06-02] MEDS: dexmedeTOMIDidine HCL/NS 400 MCG/100 ML INFUS..BTL 22.15 MCG IVCONT (21:46)
[2021-06-03] VITALS (33 sets, daily range): BP systolic 113–157; BP diastolic 78–110; PULSE 64–87; RESP 7–16; TEMP 34.8–37.1; O2SAT 95–100; BMI 30.7
[2021-06-03] MEDS: fentaNYL citrate/PF 100 MCG/2 ML VIAL IVPUSH ×4 (00:32→17:25)
[2021-06-03] MEDS: niCARdipine HCL 25 MG in 0.9 % Sodium Chloride 250 ML 78 MG IVCONT ×7 (00:32→22:33)
[2021-06-03] MEDS: dexmedeTOMIDidine HCL/NS 400 MCG/100 ML INFUS..BTL 26.58 MCG IVCONT (01:29)
[2021-06-03] MEDS: Heparin Sodium,Porcine 5,000 UNIT/ML VIAL 5000 UNIT SUBCUT ×3 (01:31→17:25)
[2021-06-03] MEDS: dexmedeTOMIDidine HCL/NS 400 MCG/100 ML INFUS..BTL 33.23 MCG IVCONT ×7 (04:17→21:51)
[2021-06-03 05:20] LABS: VBG Base Excess -6.7 mmol/L; VBG HCO3 16 mmol/L (22-26); VBG pCO2 27 mmHg; VBG pH 7.39 (7.32-7.43); VBG pO2 81 mmHg
[2021-06-03 05:23] LABS: Venous Blood Gas Refer to POC result
[2021-06-03 05:56] LABS: Hematocrit 33.1 % (37.0-47.0); Hemoglobin 11.4 g/dl (12.0-16.0); Mean Corpuscular HGB Conc 34.4 g/dl (31.0-35.0); Mean Corpuscular Hemoglobin 28.1 pg (27.0-33.0); Mean Corpuscular Volume 81.5 fL (80.0-98.0); Mean Platelet Volume 10.2 fL (9.4-12.3); NRBC Pct Auto 0.3 /100WBC (0.0-0.2); Platelet Count 203 X10*3/uL (160-400); Red Blood Count 4.06 X10*6/uL (4.20-5.50); White Blood Count 6.4 X10*3/uL (4.8-10.8)
[2021-06-03] MEDS: Ketorolac Tromethamine 30 MG/ML VIAL 15 MG IVPUSH ×2 (06:00→19:50)
[2021-06-03 06:18] LABS: Anion Gap 23 (12-20); Blood Urea Nitrogen 76 mg/dL (9-16); Calcium 7.9 mg/dL (8.4-10.2); Carbon Dioxide 17 mmol/L (22-29); Chloride 98 mmol/L (96-108); Creatinine Clr Calc Pharmacy 7.3; Estimated Glomerular Filt Rate 3; Glucose Random 220 mg/dL (60-115); Potassium 3.5 mmol/L (3.3-5.1); Sodium 134 mmol/L (135-145)
[2021-06-03] MEDS: Chlorhexidine Gluc Oral Rinse 15 ML MOUTHWASH BUCCAL ×3 (07:39→20:19)
[2021-06-03] MEDS: dexAMETHasone sod phosphate 4 MG/ML VIAL 8 MG IVPUSH ×2 (07:39→20:19)
--- NOTE | 2021-06-03 08:53 | PC.NURSE ---
0840, patient with apnea alarm, then high pressure in circuit. NT suctioned inline. RT called to bedside told that tube was 24 at nare in length. At intubation, length was 27. Dr. Garcia was notified by phone, OR physician brought in by chief diversity officer who happened to be present on unit. With glidescope, patient was bronch'd for tube placement. Tube advanced to 27 per originnal measurements upon intubation. Patient was given 10mL Precedex IVP per order Dr. Garcia to tolerate procedure. Vent settings changed to AC 1 16/380/21/5. Volumes good at this time. No vent alarms sounding.
[2021-06-03] MEDS: Ampicillin Sodium/Sulbactam Na 3 GM in 0.9 % Sodium Chloride 100 ML IV (14:37)
[2021-06-03] MEDS: Sodium Bicarbonate 8.4% 150 MEQ in Dextrose 5 % 850 ML 30 MEQ IV (14:38)
--- NOTE | 2021-06-03 17:00 | P.PNNP_ITS ---
Subjective Subjective Date of Service: 06/03/21 Interval history: labs reviewed Physical Exam Vital Signs: Vital Signs: Last Vital Signs Temp 96.6 F L 06/03/21 15:58 Pulse 69 06/03/21 15:58 Resp 16 06/03/21 15:58 BP 133/90 H 06/03/21 15:58 Pulse Ox 97 06/03/21 15:58 BMI result Body Mass Index 30.7 Const: Other: Intubated ENT: Tongue is grossly enlarged CVS: Normal heart rate and rhythm. Pulses normal. Normal S1 and S2 Respiratory: No respiratory distress. Breath sounds normal. No Wheezing. No rales Abdomen: Soft and nontender. No rigidity. No distention, patient has a peritoneal dialysis catheter in the abdomen Skin: Skin warm and dry. Extremities: Mild edema / anasarca Neuro: sedated Objective Data Labs CBC & Chem 7: 06/03/21 05:09 06/03/21 05:09 Labs: Laboratory Results - last 24 hr 06/03/21 06/03/21 06/03/21 05:09 05:09 05:14 WBC 6.4 RBC 4.06 L Hgb 11.4 L Hct 33.1 L MCV 81.5 MCH 28.1 MCHC 34.4 RDW 15.0 Plt Count 203 MPV 10.2 Absolute Nucleated RBC 0.020 H Nucleated RBC % (auto) 0.3 H VBG pH 7.39 VBG pCO2 27 VBG pO2 81 VBG HCO3 16 L VBG O2 Saturation 91.0 VBG Base Excess -6.7 Sodium 134 L Potassium 3.5 Chloride 98 Carbon Dioxide 17 L Anion Gap 23 H BUN 76 H Creatinine 11.98 H* Estim Creat Clear Calc 7.3 Estimated GFR 3 Random Glucose 220 H Calcium 7.9 L Microbiology Microbiology Results: Microbiology 06/01/21 23:47 Blood - Venous Blood Culture - Preliminary No growth after 24 hours. 06/01/21 23:41 Blood - Venous Blood Culture - Preliminary No growth after 24 hours. 05/29/21 04:35 Blood - Venous Blood Culture - Final Staphylococcus epidermidis 05/29/21 04:35 Blood - Venous Blood Culture - Final Staphylococcus epidermidis Procedures Date of Service Date of Service: 06/03/21 Assessment & Plan Assessment and plan (1) ESRD (end stage renal disease): Status: Acute Assessment and Plan: ESRD on Peritoneal dialysis chronically Now with Severe Acidosis and Azotemia Transitioned from PD to iHD while admitted at [place] as PD services are note provided at this institution. 06/01/2021 first HD session. Plan: - next HD planned Friday and will keep on MWF schedule - c/w bicarb gtt at low rate - monitor renal panel - monitor acidosis - keep PD catheter in place as she will continue PD once outpatient. - OK to keep RIJ temp line for now for dialysis, no need for a permcath unless she has a prolonged hospitalization >10 days. Time Spent With Patient Time: Total time spent is greater than 50% in coordination of care (as documented) at patient's floor/unit and/or counseling patient: Progress Note: Quality Stroke Does the patient have a stroke diagnosis?: No
[2021-06-03] MEDS: ondansetron HCL 4 MG/2 ML VIAL IVPUSH (20:50)
--- NOTE | 2021-06-03 20:55 | P.PNCC_ITS ---
Subjective Subjective Date of Service: 06/03/21 <BROOK Rose - Last Filed: 06/03/21 23:20> Interval History: Ms. Velazquez was admitted to the ICU on May 29 after being intubated in the ED bec of massive tongue swelling and AMS. Today early in the morning the patient is nasal tracheal to had, out almost entirely, 1 of our anesthesiologist was able to place it back and since then, there has been no issues.? The patient's pain is well controlled with p.r.n. Toradol in low doses, she is awake and following commands. Clinical precedent: ?? The patient is a 41 yo woman BIBA to the ED early May 29 after being found face down, tongue swollen, unable to speak, with altered mental status.? The patient's family had not seen her for four days and called EMS.? The family reported that the patient is a dialysis patient and a few years ago she had a stroke. ?She has ESRF and is on peritoneal dialysis (PD).? No known sz disorder.? Her baseline is alert and oriented.? She lives by herself and drives.? The only medication on her Med Rec is losartan. On arrival to the ED, the patient was clearly awake, but unable to speak.? Mental status was definitely altered.? She was agitated, non communicative, and was not making eye contact.? The tongue was grossly enlarged, not able to fit in the mouth, necrotic, and draining foul-smelling purulence.? See pictures in the ED physician's record.? Blood pressure was up into the 200s.? Sat 100% on room air.? The sub mandibular area in front and on both sides of the mouth seemed to be very tender; the patient would not let anyone touch her there.? The upper airway and the chest were clear.? There was no lower extremity edema. The patient was nasotracheally intubated, then underwent CT of the neck which s howed ?Enlarged edematous tongue protrudes from the mouth demonstrating hypodensity suggestive of infarction.? Symmetric low attenuation thickening of the bilateral geniohyoid and anterior digastric musculature.? No evidence of deep space infection or abscess.? Head CT showed ?abnormal attenuation within the posterior circulation distribution involving the occipital lobes and left cerebellum characterized by subcortical white matter hypodensity, and areas of ill definition of the goncalves- white matter interface. The pattern and appearance would be typical for posterior reversible encephalopathy syndrome [PRES]. MRI could lend further specificity.? A CVL was placed and the patient was maintained on propofol and Versed sedation.? The ED staff were unable to find a hospital that would accept her to do PD or a hospital to manage her ENT situation.? Dr. Moran spoke with Dr. Nicholas at [facility] and he indicated that operative intervention for her tongue was not indicated at that time.? Treatment was simply supportive with antibiotics and local measures to keep the tongue moist.? The patient?s dialysis situation was d/w Dr. De La Torre and he indicated that if we couldn?t find a facility to transfer her to for PD, we would have to do hemodialysis here.? The patient was therefore admitted to our ICU. The patient was seen by Dr. Barber on May 30, and had an MRI which showed ?Expansile T2 FLAIR hyperintensity involving the bilateral occipital lobes, brainstem, and left cerebellar hemisphere. Changes are nonspecific but may be seen in the setting of posterior reversible encephalopathy syndrome (PRES).?? Dr. Barber felt that hypertensive encephalopathy or PRES were possibilities for her AMS.? Another possibility is that she might have had a generalized seizure resulting in a tongue bite which ultimately was inflamed and infected and swollen.? EEG showed generalized slowing, but no indication of any active seizure disorder. Physical Exam: BLOOD PRESSURE 131/87, HEART RATE 64, RESPIRATIONS 16, O2 SAT 97% ON THE VENT AC MODE AT RATE OF 16, TIDAL VOLUME 380, FIO2 21%, PEEP 5 Alert and oriented to her own name, following commands Skin is intact, no swelling HEENT: ?Head is normocephalic and atraumatic, pupils equal round reactive to light and accommodation bilaterally.? Mucous mucosa is dry, tongue protrudes out toward the left with gauze added steep with known laceration to it.? Neck is supple, no JVD, no stridor, no mass. Heart regular in rate and rhythm no murmurs rubs gallops Lungs clear to auscultation bilaterally, no wheezes, rales, rhonchi Abdomen is protuberant, positive bowel sounds in all 4 quadrants with hyperactive sounds.? Soft, nontender to palpation.? No rebound or guarding. Musculoskeletal: ?Able to move her arms and legs upon request at the major joints, 5/5 hand air pollution auditor and dorsiflexion /plantar flexion of the feet bilateral. Neuro: ?Again following all commands, no focal deficits noted. Vascular 2+ pulses bilaterally upper and lower extremities. ? LABORATORY DATA: ?White blood cells 6.4, hemoglobin 11.4, hematocrit 33.1, platelets 203.? Venous blood gas pH 7.39, pCO2 27, PO2 81, HC03 16, base excess-6.7.? Sodium 134, potassium 3.5, chloride 98, carbon dioxide 17, anion gap 23, BUN 76, creatinine 11.78. ? ASSESSMENT AND PLAN: ?1. 41-year-old woman with end-stage renal failure on peritoneal dialysis.? Cause of her renal failure is unknown. Had HD 2 days ago no issues. ?2. Massive tongue swelling.? Cause is unclear, but the CT scan indicates that is not Kenny's angina.? It?s not angioedema, bec that usually resolves within hours of treatment.? Her tongue hasn?t changed since admission, > 4 days.? At this point looking more likely to be sequelae of a seizure and her biting her tongue.? Continue Unasyn and Decadron.? D/W Dr. Nicholas [phone]).? He indicates that this could go on for a couple of weeks.? She might need a tracheostomy.? Will revisit the situation next week.? In the meantime, the tongue needs to be kept moist to prevent further damage. ?3. Encephalopathy of unclear etiology.? CT scan was suggestive of PRES.? It could have been HTN Encephalopathy.==== Improved now Following commands. ?4. Uncontrolled HTN.? On nicardipine prnfor SBP > 160. ?5. Acute respiratory failure.? The patient has no ventilatory or oxygenation problem.? We?re keeping her intubated until her airway is safe. 6. Left arm swelling.? Had a negative CT yesterday.? The swelling is better today.? US tomorrow. ?7.Nutrition.? Put a 10Fr Kaofeed tube down her left nares yesterday with no problem.? Now on goal rate Nepro via nasal KO feed tube, on hold now due to nausea will check residues. GIP: on Omeprazole suspension, add Zofran prn nausea DVTP on Herparin Sub Q Case was discussed in detail with Dr. Garcia.? He is aware of all the above as well as the plan of care for this patient. ?Total time spent with patient 60 minute? <BROOK Rose - Last Filed: 06/03/21 23:20> Critical Care Time (minutes): 60 <BROOK Rose - Last Filed: 06/03/21 23:20> Physical Exam Vital Signs: Vital Signs: Last Vital Signs Temp 97.0 F 06/03/21 20:00 Pulse 64 06/03/21 20:00 Resp 16 06/03/21 20:00 BP 131/87 06/03/21 20:00 Pulse Ox 97 06/03/21 20:00 BMI result Body Mass Index 30.7 <BROOK Rose - Last Filed: 06/03/21 23:20> Objective Data Labs CBC & Chem 7: : 06/04/21 05:25 06/04/21 05:25 <BROOK Rose - Last Filed: 06/03/21 23:20> Labs: Laboratory Results - last 24 hr 06/03/21 06/03/21 06/03/21 05:09 05:09 05:14 WBC 6.4 RBC 4.06 L Hgb 11.4 L Hct 33.1 L MCV 81.5 MCH 28.1 MCHC 34.4 RDW 15.0 Plt Count 203 MPV 10.2 Absolute Nucleated RBC 0.020 H Nucleated RBC % (auto) 0.3 H VBG pH 7.39 VBG pCO2 27 VBG pO2 81 VBG HCO3 16 L VBG O2 Saturation 91.0 VBG Base Excess -6.7 Sodium 134 L Potassium 3.5 Chloride 98 Carbon Dioxide 17 L Anion Gap 23 H BUN 76 H Creatinine 11.98 H* Estim Creat Clear Calc 7.3 Estimated GFR 3 Random Glucose 220 H Calcium 7.9 L <BROOK Rose - Last Filed: 06/03/21 23:20> Microbiology Microbiology Results: Microbiology 06/01/21 23:47 Blood - Venous Blood Culture - Preliminary No growth after 24 hours. 06/01/21 23:41 Blood - Venous Blood Culture - Preliminary No growth after 24 hours. 05/29/21 04:35 Blood - Venous Blood Culture - Final Staphylococcus epidermidis 05/29/21 04:35 Blood - Venous Blood Culture - Final Staphylococcus epidermidis <BROOK Rose - Last Filed: 06/03/21 23:20> Quality Stroke Does the patient have a stroke diagnosis?: No <BROOK Rose - Last Filed: 06/03/21 23:20> VTE Prior VTE?: No <BROOK Rose - Last Filed: 06/03/21 23:20> VTE Risk Level:: Medical - moderate - high <BROOK Rose - Last Filed: 06/03/21 23:20> VTE Device Contraindication: N/A - Device Ordered <BROOK Rose - Last Filed: 06/03/21 23:20> VTE Drug Contraindication: N/A - Med Ordered <BROOK Rose - Last Filed: 06/03/21 23:20> Critical Care Time Critical Care Time (minutes): 60 <John Garcia MD - Last Filed: 06/04/21 18:25>
[2021-06-03] MEDS: HYDROmorphone HCl 0.5 MG/0.5 ML SYRINGE IVPUSH (23:30)
[2021-06-04] VITALS (29 sets, daily range): BP systolic 115–192; BP diastolic 24–139; PULSE 55–87; RESP 13–17; TEMP 34.8–36.8; O2SAT 91–99; BMI 31.1
[2021-06-04] MEDS: dexmedeTOMIDidine HCL/NS 400 MCG/100 ML INFUS..BTL 33.23 MCG IVCONT ×5 (00:51→22:49)
[2021-06-04] MEDS: Heparin Sodium,Porcine 5,000 UNIT/ML VIAL 5000 UNIT SUBCUT ×3 (00:51→17:01)
[2021-06-04] MEDS: HYDROmorphone HCl 0.5 MG/0.5 ML SYRINGE IVPUSH ×6 (01:43→19:35)
[2021-06-04] MEDS: niCARdipine HCL 25 MG in 0.9 % Sodium Chloride 250 ML 78 MG IVCONT ×2 (02:03→06:18)
[2021-06-04 05:56] LABS: VBG Base Excess -5.9 mmol/L; VBG HCO3 16 mmol/L (22-26); VBG pCO2 24 mmHg; VBG pH 7.42 (7.32-7.43); VBG pO2 90 mmHg
[2021-06-04 05:59] LABS: Venous Blood Gas Refer to POC result
[2021-06-04 06:10] LABS: Hematocrit 38.9 % (37.0-47.0); Hemoglobin 13.4 g/dl (12.0-16.0); Mean Corpuscular HGB Conc 34.4 g/dl (31.0-35.0); Mean Corpuscular Hemoglobin 27.6 pg (27.0-33.0); Mean Corpuscular Volume 80.2 fL (80.0-98.0); Mean Platelet Volume 10.2 fL (9.4-12.3); Platelet Count 210 X10*3/uL (160-400); Red Blood Count 4.85 X10*6/uL (4.20-5.50); Red Cell Distribution Width 14.7 % (11.0-16.0); White Blood Count 7.8 X10*3/uL (4.8-10.8)
[2021-06-04 06:35] LABS: Anion Gap 23 (12-20); Blood Urea Nitrogen 90 mg/dL (9-16); Calcium 7.7 mg/dL (8.4-10.2); Carbon Dioxide 16 mmol/L (22-29); Chloride 100 mmol/L (96-108); Creatinine Clr Calc Pharmacy 7.3; Estimated Glomerular Filt Rate 3; Glucose Random 197 mg/dL (60-115); Sodium 136 mmol/L (135-145)
[2021-06-04 06:36] LABS: Band Neutrophils Percent 2 % (3-5); Lymphocytes Absolute Manual 0.5 X10*3/uL (1.2-4.9); Lymphocytes Percent Manual 6 % (20-40); Metamyelocytes Absolute 0.2 X10*3/uL; Metamyelocytes Percent 2 %; Microcytosis 1+ (5-14) /OIF; Monocytes Absolute Manual 0.2 X10*3/uL (0.1-1.2); Monocytes Percent Manual 3 % (2-11); Neutrophils Absolute Manual 6.9 X10*3/uL (2.0-8.3); Neutrophils Percent Manual 87 % (45-73); Platelet Estimate NORMAL (NORMAL); Platelet Morphology Comment NORMAL; Polychromasia 1+ (0-2) /OIF; RBC Morphology NOTED
--- NOTE | 2021-06-04 08:07 | PC.NURSE ---
PATIENT TONGUE IMPROVE THROUGH NIGHT - ABLE TO FIT IN MOUTH - ESCHAR COME OFF, NO BLEEDING. COLOR IMPROVING SLIGHTLY AT TIP OF TONGUE. PATIENT ABLE TO STICK TONGUE OUT WHEN ASKED. GAGGING AT START OF NIGHT - TUBE FEED HELD FOR 4 HOURS, ZOFRAN GIVEN. TUBE FEED RESTARTED PER ROLANDO DOE AT 20ML/HR - NO ISSUES. PATIENT MEDICATED W/ TORADOL AND THEN DILAUDID WITH GOOD AFFECT FROM DILAUDID - VITALS STABLE WITH NICARDIPINE DRIP. ANURIC W/ SIMS.
[2021-06-04] MEDS: Chlorhexidine Gluc Oral Rinse 15 ML MOUTHWASH BUCCAL ×3 (08:20→19:56)
[2021-06-04] MEDS: Alteplase Cath Clear 2 MG VIAL 4 MG INTRACATH (09:33)
[2021-06-04] MEDS: Potassium Chloride Packet 20 MEQ PACKET PO (09:34)
[2021-06-04] MEDS: cloNIDine 0.1 MG PATCH.TDWK TRANSDERMA (09:34)
[2021-06-04] MEDS: dexAMETHasone sod phosphate 10 MG/ML VIAL IVPUSH (09:35)
--- NOTE | 2021-06-04 09:59 | PM.PNNEP ---
Subjective Subjective Date of Service: 06/08/21 Interval history: Events noted Permacath was ordered bt IR inserted temporary line. I did not order or autorize tempoary line Physical Exam Vital Signs: Vital Signs: Last Vital Signs Temp 96.3 F L 06/04/21 09:00 Pulse 65 06/04/21 09:00 Resp 16 06/04/21 09:35 BP 135/97 H 06/04/21 09:00 Pulse Ox 98 06/04/21 09:00 BMI result Body Mass Index 31.1 Const: Other: Intubated ENT: Tongue is grossly enlarged CVS: Normal heart rate and rhythm. Pulses normal. Normal S1 and S2 Respiratory: No respiratory distress. Breath sounds normal. No Wheezing. No rales Abdomen: Soft and nontender. No rigidity. No distention, patient has a peritoneal dialysis catheter in the abdomen Skin: Skin warm and dry. Extremities: Mild edema / anasarca Neuro: sedated Objective Data Labs CBC & Chem 7: 06/08/21 06:17 06/08/21 06:17 Labs: Laboratory Results - last 24 hr 06/04/21 06/04/21 06/04/21 05:25 05:25 05:49 WBC 7.8 RBC 4.85 Hgb 13.4 Hct 38.9 MCV 80.2 MCH 27.6 MCHC 34.4 RDW 14.7 Plt Count 210 MPV 10.2 Immature Gran % (Auto) Cancelled Neut % (Auto) Cancelled Lymph % (Auto) Cancelled [place] % (Auto) Cancelled Eos % (Auto) Cancelled Baso % (Auto) Cancelled Lymph # (Auto) Cancelled [place] # (Auto) Cancelled Eos # (Auto) Cancelled Baso # (Auto) Cancelled Abs Immat Gran (auto) Cancelled Absolute Neuts (auto) Cancelled Absolute Nucleated RBC 0.000 Nucleated RBC % (auto) 0.0 Neutrophils % (Manual) 87 H Band Neutrophils % 2 L Lymphocytes % (Manual) 6 L Monocytes % (Manual) 3 Metamyelocytes % 2 Abs Neuts (Manual) 6.9 Lymphocytes # (Manual) 0.5 L Monocytes # (Manual) 0.2 Metamyelocytes # 0.2 Platelet Estimate NORMAL Plt Morphology Comment NORMAL RBC Morphology NOTED Polychromasia 1+ (0-2) Microcytosis 1+ (5-14) VBG pH 7.42 VBG pCO2 24 VBG pO2 90 VBG HCO3 16 L VBG O2 Saturation 95.0 VBG Base Excess -5.9 Sodium 136 Potassium 3.0 L Chloride 100 Carbon Dioxide 16 L Anion Gap 23 H BUN 90 H Creatinine 12.03 H* Estim Creat Clear Calc 7.3 Estimated GFR 3 Random Glucose 197 H Calcium 7.7 L Microbiology Microbiology Results: Microbiology 06/01/21 23:47 Blood - Venous Blood Culture - Preliminary No growth after 48 hours. 06/01/21 23:41 Blood - Venous Blood Culture - Preliminary No growth after 48 hours. 05/29/21 04:35 Blood - Venous Blood Culture - Final Staphylococcus epidermidis 05/29/21 04:35 Blood - Venous Blood Culture - Final Staphylococcus epidermidis Procedures Date of Service Date of Service: 06/04/21 Assessment & Plan Assessment and plan (1) ESRD (end stage renal disease): Status: Acute Assessment and Plan: ESRD on Peritoneal dialysis Severe Acidosis Anemia Since we are unable to perform PD , switch to hemodialysis Request IR to insert permcath but they inserted temp line Correct acisosis with Bicarab Change to D5W with 3 amp NaHCO3 Severe anemia Transfuse PRBCs as indicated Epogen per protocol Will track previous info from [facility] Time Spent With Patient Time: Total time spent is greater than 50% in coordination of care (as documented) at patient's floor/unit and/or counseling patient: Time with patient: 25 - 35 minutes Progress Note: Quality Stroke Does the patient have a stroke diagnosis?: No
--- NOTE | 2021-06-04 10:33 | MHC.CLN ---
F/U PT IS INTUBATED AND SEDATED WITH PRECEDEX CURRENTLY PT WITH NG TUBE FOR NUTRITION RECOMMEND NEPRO AT MAX GOAL RATE 40ML/HR AND 240ML FREE WATER FLUSHES Q 6 HRS TO PROVIDE 1728KCALS (25KCALS/KG OF CMW), 78G PROTEIN (1.1G/KG), 1658ML TOTAL FREE WATER FROM FORMULA AND FLUSHES (24ML/KG) START TF AT 20ML/HR AND INCREASE BY 10ML Q 4 HRS UNTIL MAX GOAL IS ACHIEVED MONITOR TOLERANCE, RESIDUALS AND LYTES
[2021-06-04 10:49] LABS: Erythrocyte Sedimentation Rate 70 MM/HR (0-20)
[2021-06-04] MEDS: Ampicillin Sodium/Sulbactam Na 3 GM in 0.9 % Sodium Chloride 100 ML IV (13:33)
[2021-06-04] MEDS: dexmedeTOMIDidine HCL/NS 400 MCG/100 ML INFUS..BTL 17.72 MCG IVCONT ×2 (13:33→18:33)
[2021-06-04] MEDS: Enalaprilat Dihydrate 1.25 MG/ML VIAL 0.625 MG IVPUSH (13:47)
[2021-06-04] MEDS: Heparin Sodium,Porcine Flush 50 UNITS/5 ML SYRINGE IVFLUSH (13:48)
[2021-06-04 14:48] LABS: Partial Thromboplastin Time 30.9 SEC (24.1-38.0)
--- NOTE | 2021-06-04 18:01 | P.PNCC_ITS ---
Subjective Subjective Date of Service: 06/04/21 Interval History: 41-year-old female with end-stage renal disease and peritoneal dialysis dependent at home but I replaced today her temporary dialysis catheter via the right internal jugular vein without complication for hemodialysis here in the hospital as she is metabolically uremic with no signs of respiratory difficulty or fluid overload but it appears that she has an infarcted tongue which is still dusky and other were cyanotic with multiple bilateral of ulcerations and necrosis but it is receding in its size it is back in her mouth she is nasally intubated but awake cooperative with appropriate cognitive function nonfocal neurologically fully understanding and today we noted that both central lines all ports at clotted were concerned about the possibility of hypercoagulability as she did have a history also of previous CVA but we also have no accountability for a tongue infarction and if this is an is a manifestation of hypercoagulability and or an underlying vasculitic process we need to define the vasculature of of head neck and by CT angiogram send off a hypercoagulable workup go ahead with with dialysis but on going to cover her with high-dose steroids because her sedimentation rate I sent this morning is 70 hypertension still remains an issue but gradually control is improving her peak pressures in the 190s are down to anywhere between 150 and 160 which is adequate response and she is awake with cognitive function simply remaining on dexmedetomidine to prevent any anxiety over intubation Critical Care Time (minutes): 75 Physical Exam Vital Signs: Vital Signs: Last Vital Signs Temp 97.9 F 06/04/21 17:00 Pulse 58 06/04/21 17:00 Resp 16 06/04/21 17:00 BP 170/130 H 06/04/21 17:00 Pulse Ox 99 06/04/21 17:00 BMI result Body Mass Index 31.1 awake with good cognitive function nonfocal neurologically cardiac function with good bilateral carotid upstrokes no bruits no g allops abdomen soft with no organomegaly chest without adventitious sounds Objective Data Labs CBC & Chem 7: 06/05/21 05:38 06/05/21 05:38 Labs: Laboratory Results - last 24 hr 06/04/21 06/04/21 06/04/21 05:25 05:25 05:49 WBC 7.8 RBC 4.85 Hgb 13.4 Hct 38.9 MCV 80.2 MCH 27.6 MCHC 34.4 RDW 14.7 Plt Count 210 MPV 10.2 Immature Gran % (Auto) Cancelled Neut % (Auto) Cancelled Lymph % (Auto) Cancelled [place] % (Auto) Cancelled Eos % (Auto) Cancelled Baso % (Auto) Cancelled Lymph # (Auto) Cancelled [place] # (Auto) Cancelled Eos # (Auto) Cancelled Baso # (Auto) Cancelled Abs Immat Gran (auto) Cancelled Absolute Neuts (auto) Cancelled Absolute Nucleated RBC 0.000 Nucleated RBC % (auto) 0.0 Neutrophils % (Manual) 87 H Band Neutrophils % 2 L Lymphocytes % (Manual) 6 L Monocytes % (Manual) 3 Metamyelocytes % 2 Abs Neuts (Manual) 6.9 Lymphocytes # (Manual) 0.5 L Monocytes # (Manual) 0.2 Metamyelocytes # 0.2 Platelet Estimate NORMAL Plt Morphology Comment NORMAL RBC Morphology NOTED Polychromasia 1+ (0-2) Microcytosis 1+ (5-14) ESR APTT VBG pH 7.42 VBG pCO2 24 VBG pO2 90 VBG HCO3 16 L VBG O2 Saturation 95.0 VBG Base Excess -5.9 Sodium 136 Potassium 3.0 L Chloride 100 Carbon Dioxide 16 L Anion Gap 23 H BUN 90 H Creatinine 12.03 H* Estim Creat Clear Calc 7.3 Estimated GFR 3 Random Glucose 197 H Calcium 7.7 L 06/04/21 06/04/21 09:16 14:30 WBC RBC Hgb Hct MCV MCH MCHC RDW Plt Count MPV Immature Gran % (Auto) Neut % (Auto) Lymph % (Auto) [place] % (Auto) Eos % (Auto) Baso % (Auto) Lymph # (Auto) [place] # (Auto) Eos # (Auto) Baso # (Auto) Abs Immat Gran (auto) Absolute Neuts (auto) Absolute Nucleated RBC Nucleated RBC % (auto) Neutrophils % (Manual) Band Neutrophils % Lymphocytes % (Manual) Monocytes % (Manual) Metamyelocytes % Abs Neuts (Manual) Lymphocytes # (Manual) Monocytes # (Manual) Metamyelocytes # Platelet Estimate Plt Morphology Comment RBC Morphology Polychromasia Microcytosis ESR 70 H APTT 30.9 VBG pH VBG pCO2 VBG pO2 VBG HCO3 VBG O2 Saturation VBG Base Excess Sodium Potassium Chloride Carbon Dioxide Anion Gap BUN Creatinine Estim Creat Clear Calc Estimated GFR Random Glucose Calcium Microbiology Microbiology Results: Microbiology 06/01/21 23:47 Blood - Venous Blood Culture - Preliminary No growth after 48 hours. 06/01/21 23:41 Blood - Venous Blood Culture - Preliminary No growth after 48 hours. 05/29/21 04:35 Blood - Venous Blood Culture - Final Staphylococcus epidermidis 05/29/21 04:35 Blood - Venous Blood Culture - Final Staphylococcus epidermidis Progress Note: A&P Assessment and plan (1) Encephalopathy: Status: Acute (2) Posterior reversible encephalopathy syndrome: Status: Acute (3) ESRD (end stage renal disease): Status: Acute (4) Anemia: Status: Acute (5) Necrosis: Status: Acute (6) At high risk for airway occlusion: Status: Acute (7) Angioneurotic edema, sequela: Status: Acute Assessment and Plan: started high-dose IV Decadron in addition to continued antibiotic coverage due to the necrotic tongue but clearly the appearance with bilateral deep ulceration and dense cyanosis of the tongue indicates a lingual infarct and we now no from the CT scan that the lingual artery and both the carotid as well as posterior circulation is all patent so there is no evidence of vasculitic involvement will stop dexmedetomidine in the morning for the purpose of extubation Quality Stroke Does the patient have a stroke diagnosis?: No VTE Prior VTE?: No VTE Risk Level:: Medical - moderate - high VTE Device Contraindication: N/A - Device Ordered VTE Drug Contraindication: N/A - Med Ordered
[2021-06-04] MEDS: iohexoL 350 MG/ML 100 ML INFUS..BTL 65 ML IV (18:27)
[2021-06-04] MEDS: Ketorolac Tromethamine 30 MG/ML VIAL 15 MG IVPUSH (19:55)
[2021-06-04] MEDS: ondansetron HCL 4 MG/2 ML VIAL IVPUSH (19:56)
--- NOTE | 2021-06-04 22:47 | PC.NURSE ---
Addendum entered by Prashant Marlow, GHADA 06/05/21 07:27: ELEVATED BP 190'S SBP - MEDICATED W/ HYDRALAZINE IV 5MG @ 2252 & 0000 WITH GOOD AFFECT - THEN BP UP AGAIN -- MEDICATED W/ 10MG IVP HYDRALAZINE @ 0420 W/ GOOD AFFECT. ANOTHER DOSE OF DILAUDID GIVEN AGAIN FOR PAIN WITH GOOD AFFECT. Original Note: Patient agitated, patient coughing, TV variable at times - not synchronous w/ vent. Jude DOE made aware - ETT out to 22cm (had been at 26cm) - RT called to bedside - readvanced ETT to 25cm. Patient tolerated. Patient received dialysis - issue w/ right IJ temp dialysis cath being patent per catering and events managerKarolina. Patient moving neck frequently - medicated w/ dilaudid, toradol, & zofran with good affect. 2 hour treatment -0.8 kilo removed. BP remains [id number]'s systolic - Jude DOE made aware - BP & cuff position confirmed - BP still 180's when reassessed.
[2021-06-04] MEDS: hydrALAZINE HCl 20 MG/ML VIAL 5 MG IVPUSH (22:52)
[2021-06-05] VITALS (22 sets, daily range): BP systolic 96–215; BP diastolic 59–141; PULSE 53–112; RESP 10–18; TEMP 35–37; O2SAT 94–100; BMI 31.1
[2021-06-05] MEDS: hydrALAZINE HCl 20 MG/ML VIAL 5 MG IVPUSH
[2021-06-05] MEDS: dexmedeTOMIDidine HCL/NS 400 MCG/100 ML INFUS..BTL 33.23 MCG IVCONT ×3 (01:05→07:23)
[2021-06-05] MEDS: Heparin Sodium,Porcine 5,000 UNIT/ML VIAL 5000 UNIT SUBCUT (04:14)
[2021-06-05] MEDS: hydrALAZINE HCl 20 MG/ML VIAL 10 MG IVPUSH ×2 (04:20→21:04)
[2021-06-05] MEDS: HYDROmorphone HCl 0.5 MG/0.5 ML SYRINGE IVPUSH ×2 (04:20→19:43)
[2021-06-05 05:45] LABS: VBG Base Excess -7.6 mmol/L; VBG HCO3 15 mmol/L (22-26); VBG pCO2 24 mmHg; VBG pO2 55 mmHg
[2021-06-05 05:47] LABS: Venous Blood Gas Refer to POC result
[2021-06-05 05:57] LABS: Hematocrit 34.1 % (37.0-47.0); Hemoglobin 11.5 g/dl (12.0-16.0); Mean Corpuscular HGB Conc 33.7 g/dl (31.0-35.0); Mean Corpuscular Hemoglobin 27.6 pg (27.0-33.0); NRBC Pct Auto 0.2 /100WBC (0.0-0.2); Platelet Count 173 X10*3/uL (160-400); Red Blood Count 4.16 X10*6/uL (4.20-5.50); Red Cell Distribution Width 14.8 % (11.0-16.0); White Blood Count 9.1 X10*3/uL (4.8-10.8)
[2021-06-05 06:18] LABS: Band Neutrophils Percent 3 % (3-5); Lymphocytes Absolute Manual 0.7 X10*3/uL (1.2-4.9); Lymphocytes Percent Manual 8 % (20-40); Metamyelocytes Absolute 0.2 X10*3/uL; Metamyelocytes Percent 2 %; Monocytes Absolute Manual 1.1 X10*3/uL (0.1-1.2); Monocytes Percent Manual 12 % (2-11); Neutrophils Absolute Manual 7.1 X10*3/uL (2.0-8.3); Neutrophils Percent Manual 75 % (45-73)
[2021-06-05 06:19] LABS: Microcytosis 1+ (5-14) /OIF; Platelet Estimate NORMAL (NORMAL); Platelet Morphology Comment NORMAL; Polychromasia 1+ (0-2) /OIF; RBC Morphology NOTED
[2021-06-05 06:24] LABS: Alanine Aminotransferase 13 U/L (0-31); Alkaline Phosphatase 63 U/L (39-117); Anion Gap 19 (12-20); Aspartate Amino Transferase 13 U/L (5-31); Bilirubin Total 0.2 mg/dL (0.0-1.0); Blood Urea Nitrogen 91 mg/dL (9-16); Calcium 7.5 mg/dL (8.4-10.2); Carbon Dioxide 16 mmol/L (22-29); Chloride 103 mmol/L (96-108); Creatinine Clr Calc Pharmacy 7.8; Estimated Glomerular Filt Rate 4; Glucose Random 120 mg/dL (60-115); Phosphorus 11.3 mg/dL (2.7-4.5); Potassium 3.1 mmol/L (3.3-5.1); Sodium 135 mmol/L (135-145); Total Protein 4.3 g/dL (6.5-8.0)
[2021-06-05] MEDS: Sodium Bicarbonate 650 MG TABLET PO ×4 (07:26→19:38)
[2021-06-05] MEDS: Potassium Chloride Packet 20 MEQ PACKET PO (07:26)
[2021-06-05] MEDS: Chlorhexidine Gluc Oral Rinse 15 ML MOUTHWASH BUCCAL (07:26)
[2021-06-05] MEDS: Enalaprilat Dihydrate 1.25 MG/ML VIAL 0.625 MG IVPUSH (07:26)
--- NOTE | 2021-06-05 10:47 | P.PNNP_ITS ---
Subjective Subjective Date of Service: 06/08/21 Interval history: Events noted Had HD yesterday Physical Exam Vital Signs: Vital Signs: Last Vital Signs Temp 97.0 F 06/05/21 09:00 Pulse 60 06/05/21 09:00 Resp 11 L 06/05/21 09:00 BP 174/128 H 06/05/21 09:00 Pulse Ox 98 06/05/21 09:00 BMI result Body Mass Index 31.1 Const: Other: Intubated ENT: Tongue is grossly enlarged CVS: Normal heart rate and rhythm. Pulses normal. Normal S1 and S2 Respiratory: No respiratory distress. Breath sounds normal. No Wheezing. No rales Abdomen: Soft and nontender. No rigidity. No distention, patient has a peritoneal dialysis catheter in the abdomen Skin: Skin warm and dry. Extremities: Mild edema / anasarca Neuro: sedated Neuro: Other: Sedated and intubated. When I open her eyes, her pupils were about 3 mm round reactive. There was little bit of roving motions. There was little bit of grimace with pain. Deep tendon reflexes were absent with flexor plantars. Tongue was severely swollen. Exam was limited. Objective Data Labs CBC & Chem 7: 06/08/21 06:17 06/08/21 06:17 Labs: Laboratory Results - last 24 hr 06/04/21 06/04/21 06/04/21 05:25 09:16 14:30 WBC RBC Hgb Hct MCV MCH MCHC RDW Plt Count MPV Immature Gran % (Auto) Neut % (Auto) Lymph % (Auto) [place] % (Auto) Eos % (Auto) Baso % (Auto) Lymph # (Auto) [place] # (Auto) Eos # (Auto) Baso # (Auto) Abs Immat Gran (auto) Absolute Neuts (auto) Absolute Nucleated RBC Nucleated RBC % (auto) Neutrophils % (Manual) Band Neutrophils % Lymphocytes % (Manual) Monocytes % (Manual) Metamyelocytes % Abs Neuts (Manual) Lymphocytes # (Manual) Monocytes # (Manual) Metamyelocytes # Platelet Estimate Plt Morphology Comment RBC Morphology Polychromasia Microcytosis Smear Path Review ESR 70 H APTT 30.9 VBG pH VBG pCO2 VBG pO2 VBG HCO3 VBG O2 Saturation VBG Base Excess Sodium Potassium Chloride Carbon Dioxide Anion Gap BUN Creatinine Estim Creat Clear Calc Estimated GFR Random Glucose Calcium Phosphorus Total Bilirubin AST ALT Alkaline Phosphatase Total Protein Albumin 06/05/21 06/05/21 06/05/21 05:38 05:38 05:39 WBC 9.1 RBC 4.16 L Hgb 11.5 L Hct 34.1 L MCV 82.0 MCH 27.6 MCHC 33.7 RDW 14.8 Plt Count 173 MPV 10.0 Immature Gran % (Auto) Cancelled Neut % (Auto) Cancelled Lymph % (Auto) Cancelled [place] % (Auto) Cancelled Eos % (Auto) Cancelled Baso % (Auto) Cancelled Lymph # (Auto) Cancelled [place] # (Auto) Cancelled Eos # (Auto) Cancelled Baso # (Auto) Cancelled Abs Immat Gran (auto) Cancelled Absolute Neuts (auto) Cancelled Absolute Nucleated RBC 0.020 H Nucleated RBC % (auto) 0.2 Neutrophils % (Manual) 75 H Band Neutrophils % 3 Lymphocytes % (Manual) 8 L Monocytes % (Manual) 12 H Metamyelocytes % 2 Abs Neuts (Manual) 7.1 Lymphocytes # (Manual) 0.7 L Monocytes # (Manual) 1.1 Metamyelocytes # 0.2 Platelet Estimate NORMAL Plt Morphology Comment NORMAL RBC Morphology NOTED Polychromasia 1+ (0-2) Microcytosis 1+ (5-14) Smear Path Review ESR APTT VBG pH 7.40 VBG pCO2 24 VBG pO2 55 VBG HCO3 15 L VBG O2 Saturation 78.0 VBG Base Excess -7.6 Sodium 135 Potassium 3.1 L Chloride 103 Carbon Dioxide 16 L Anion Gap 19 BUN 91 H Creatinine 11.38 H* Estim Creat Clear Calc 7.8 Estimated GFR 4 Random Glucose 120 H Calcium 7.5 L Phosphorus 11.3 H Total Bilirubin 0.2 AST 13 D ALT 13 Alkaline Phosphatase 63 D Total Protein 4.3 L Albumin 2.0 L D Microbiology Microbiology Results: Microbiology 06/01/21 23:47 Blood - Venous Blood Culture - Preliminary No growth after 48 hours. 06/01/21 23:41 Blood - Venous Blood Culture - Preliminary No growth after 48 hours. 05/29/21 04:35 Blood - Venous Blood Culture - Final Staphylococcus epidermidis 05/29/21 04:35 Blood - Venous Blood Culture - Final Staphylococcus epidermidis Procedures Date of Service Date of Service: 06/05/21 Assessment & Plan Assessment and plan (1) ESRD (end stage renal disease): Status: Acute Assessment and Plan: ESRD on Peritoneal dialysis Severe Acidosis Anemia Since we are unable to perform PD , switch to hemodialysis Await Permcath Severe anemia Transfuse PRBCs as indicated Epogen per protocol Time Spent With Patient Time: Total time spent is greater than 50% in coordination of care (as documented) at patient's floor/unit and/or counseling patient: Time with patient: 15 - 24 minutes Progress Note: Quality Stroke Does the patient have a stroke diagnosis?: No
[2021-06-05] MEDS: Lidocaine HCl 1%/Epi 1:100,000 20 ML VIAL 10 ML INFILTRATI (12:17)
[2021-06-05] MEDS: Heparin Sodium,Porcine 1,000 UNIT/ML VIAL 3800 UNIT IV (12:22)
[2021-06-05 12:27] LABS: Anti Nuclear Antibody Screen NEGATIVE (NEGATIVE)
--- NOTE | 2021-06-05 12:38 | HO.RADPN ---
RADIOLOGY Narrative Narrative: Right IJ 14.5 fr 23 cm length Palindrome permacath placed. Tip at cavoatrial junction.
[2021-06-05] MEDS: dexmedeTOMIDidine HCL/NS 400 MCG/100 ML INFUS..BTL 17.72 MCG IVCONT (13:16)
[2021-06-05] MEDS: Ampicillin Sodium/Sulbactam Na 3 GM in 0.9 % Sodium Chloride 100 ML IV (13:53)
[2021-06-05] MEDS: Sevelamer Carbonate Powder 800 MG POWD.PACK PO ×2 (13:54→18:18)
[2021-06-05] MEDS: Enalaprilat Dihydrate 1.25 MG/ML VIAL IVPUSH ×2 (13:54→19:38)
--- NOTE | 2021-06-05 14:22 | MHC.CM.PN ---
Pt continues in ICU following massive tongue swelling w/airway compromise. Pt had a permanent HD cath placed and is receiving HD (pt had been on peritoneal dialysis at home) Referrals placed to [facility] sites with HD services. CM to follow for changes in d/c plan.
[2021-06-05] MEDS: dexAMETHasone sod phosphate 10 MG/ML VIAL IVPUSH (15:43)
--- NOTE | 2021-06-05 16:20 | PC.NURSE ---
0939 Patient transported to IR with this RN and RT for permacath placement. Returned to unit around 1200. Temporarily dialysis catheter to [facility] removed. Patient tolerated well without any events. Dialysis started around 1400, patient tolerating. Moderate amount of blood leaking around new permacath and small amount from site of previous catheter. MD aware, okay to hold SQ heparin. New dressings applied. Patient titrated off Precedex. Alert and appropriately nodding to yes/no questions. Plan to possibly extubate. Switched to PS settings by RT per MD request. Maintained tidal volumes >400, O2 sats high 90s, HR 90s to 100. BP remained elevated SBP 180s / DBPs 100s, MD aware, IV Vasotec ordered and given with no change. Dose increased and given. BP slightly decreased to 167/124. While appearing to tolerate PS, patient suddenly began to cough and gag without stopping and became extremely anxious. Question of tube migration/cuff leak. RT and MD called to bedside. MD verbal order to extubate. Extubated around 1500 by RT. Patient noted to have a strong cough and gag. Able to maintain airway, no evidence or stridor. LS clear bilaterally. Placed on venti mask, 5L 28% fio2 for cool aerosol/ humidification. High dose steroid ordered and given. Restraints removed. Patient currently alert, calm and cooperative. Appears to be resting comfortably during dialysis. No reports of pain.
--- NOTE | 2021-06-05 18:20 | P.PNCC_ITS ---
Subjective Subjective Date of Service: 06/05/21 Interval History: 41-year-old female with end-stage renal disease chalked up to hypertension presents with loss of her upper airway on the basis of lingual swelling from what looks to be an infarct but clearly ischemic with extensive necrotic ulceration now receding between antibiotics and steroids and documentation on soft tissue examination of the neck that the upper airway is now restored and her cognitive function indicating reversal of encephalopathy, is also restored as we slowly treat her hypertension with IV Vasotec in lieu of the oral losartan that she took at home until she has a swallow evaluation pressure support trial indicated good respiratory reserve good upper airway generosity and she was comfortably extubated she did have a voice we did give her 1 dose of racemic epinephrine in addition to her singular dose of Decadron and today she had her dialysis PermCath placed and was dialyzed yesterday and today Critical Care Time (minutes): 60 Physical Exam Vital Signs: Vital Signs: Last Vital Signs Temp 97.0 F 06/05/21 09:00 Pulse 101 H 06/05/21 17:00 Resp 15 06/05/21 17:00 BP 150/120 H 06/05/21 17:00 Pulse Ox 100 06/05/21 17:00 BMI result Body Mass Index 31.1 awake with good cognitive function and nonfocal neurologic pressure improving ranging between 155 in 160 on IV Vasotec 1.25 mg and she is in normal sinus rhythm with no neck vein distension and good bilateral carotid upstrokes chest clear abdomen benign with no organomegaly tongue has a pinker color and it looks like it will heal Objective Data Labs CBC & Chem 7: 06/05/21 05:38 06/05/21 05:38 Labs: Laboratory Results - last 24 hr 06/04/21 06/04/21 06/04/21 05:25 09:16 14:30 WBC RBC Hgb Hct MCV MCH MCHC RDW Plt Count MPV Immature Gran % (Auto) Neut % (Auto) Lymph % (Auto) [place] % (Auto) Eos % (Auto) Baso % (Auto) Lymph # (Auto) [place] # (Auto) Eos # (Auto) Baso # (Auto) Abs Immat Gran (auto) Absolute Neuts (auto) Absolute Nucleated RBC Nucleated RBC % (auto) Neutrophils % (Manual) Band Neutrophils % Lymphocytes % (Manual) Monocytes % (Manual) Metamyelocytes % Abs Neuts (Manual) Lymphocytes # (Manual) Monocytes # (Manual) Metamyelocytes # Platelet Estimate Plt Morphology Comment RBC Morphology Polychromasia Microcytosis Smear Path Review VBG pH VBG pCO2 VBG pO2 VBG HCO3 VBG O2 Saturation VBG Base Excess Sodium Potassium Chloride Carbon Dioxide Anion Gap BUN Creatinine Estim Creat Clear Calc Estimated GFR Random Glucose Calcium Phosphorus Total Bilirubin AST ALT Alkaline Phosphatase Total Protein Albumin Homocysteine 23.0 H HARJINDER Screen NEGATIVE HARJINDER Titer TNP HARJINDER Titer 2 TNP HARJINDER Titer 3 TNP HARJINDER Pattern TNP HARJINDER Pattern 2 TNP HARJINDER Pattern 3 TNP 06/05/21 06/05/21 06/05/21 05:38 05:38 05:39 WBC 9.1 RBC 4.16 L Hgb 11.5 L Hct 34.1 L MCV 82.0 MCH 27.6 MCHC 33.7 RDW 14.8 Plt Count 173 MPV 10.0 Immature Gran % (Auto) Cancelled Neut % (Auto) Cancelled Lymph % (Auto) Cancelled [place] % (Auto) Cancelled Eos % (Auto) Cancelled Baso % (Auto) Cancelled Lymph # (Auto) Cancelled [place] # (Auto) Cancelled Eos # (Auto) Cancelled Baso # (Auto) Cancelled Abs Immat Gran (auto) Cancelled Absolute Neuts (auto) Cancelled Absolute Nucleated RBC 0.020 H Nucleated RBC % (auto) 0.2 Neutrophils % (Manual) 75 H Band Neutrophils % 3 Lymphocytes % (Manual) 8 L Monocytes % (Manual) 12 H Metamyelocytes % 2 Abs Neuts (Manual) 7.1 Lymphocytes # (Manual) 0.7 L Monocytes # (Manual) 1.1 Metamyelocytes # 0.2 Platelet Estimate NORMAL Plt Morphology Comment NORMAL RBC Morphology NOTED Polychromasia 1+ (0-2) Microcytosis 1+ (5-14) Smear Path Review VBG pH 7.40 VBG pCO2 24 VBG pO2 55 VBG HCO3 15 L VBG O2 Saturation 78.0 VBG Base Excess -7.6 Sodium 135 Potassium 3.1 L Chloride 103 Carbon Dioxide 16 L Anion Gap 19 BUN 91 H Creatinine 11.38 H* Estim Creat Clear Calc 7.8 Estimated GFR 4 Random Glucose 120 H Calcium 7.5 L Phosphorus 11.3 H Total Bilirubin 0.2 AST 13 D ALT 13 Alkaline Phosphatase 63 D Total Protein 4.3 L Albumin 2.0 L D Homocysteine HARJINDER Screen HARJINDER Titer HARJINDER Titer 2 HARJINDER Titer 3 HARJINDER Pattern HARJINDER Pattern 2 HARJINDER Pattern 3 Microbiology Microbiology Results: Microbiology 06/01/21 23:47 Blood - Venous Blood Culture - Preliminary No growth after 48 hours. 06/01/21 23:41 Blood - Venous Blood Culture - Preliminary No growth after 48 hours. 05/29/21 04:35 Blood - Venous Blood Culture - Final Staphylococcus epidermidis 05/29/21 04:35 Blood - Venous Blood Culture - Final Staphylococcus epidermidis Progress Note: A&P Assessment and plan (1) Angioneurotic edema, sequela: Status: Acute (2) At high risk for airway occlusion: Status: Acute (3) Encephalopathy: Status: Acute (4) ESRD (end stage renal disease): Status: Acute (5) Posterior reversible encephalopathy syndrome: Status: Acute (6) Necrosis: Status: Acute (7) Anemia: Status: Acute (8) Acute on chronic kidney failure: Status: Acute (9) Non-ST elevation [place] (NSTEMI): Status: Acute (10) Tongue infection: Status: Acute (11) Hypokalemia due to excessive renal loss of potassium: Status: Acute Assessment and Plan: status post extubation doing well with denominational of her upper airway which was the cause of her respiratory failure in the 1st place hypertension slowly improving at a comfortable pace and once swallow evaluation clears her she could be restored to her losartan and stop the IV Vasotec hypercoagulability workup is pending and as well as serologies pending for a vasculitic process which is now less likely because of the negative CTA of are head neck vessels but she remains only on DVT prophylaxis at this point but now that she is extubated probably should find out whether not she was exposed to any new medications or products that could have precipitated angioneurotic edema Quality Stroke Does the patient have a stroke diagnosis?: No VTE Prior VTE?: No VTE Risk Level:: Medical - moderate - high VTE Device Contraindication: N/A - Device Ordered VTE Drug Contraindication: N/A - Med Ordered
--- NOTE | 2021-06-05 20:10 | PC.NURSE ---
Addendum entered by Prashant Marlow RN 06/05/21 21:28: report given to Jessi URRUTIA - transferring to med surg 361 Addendum entered by Prashant Marlow RN 06/05/21 21:06: bp elevated >190 sbp - hydralazine prn given Addendum entered by Prashant Marlow RN 06/05/21 20:13: swallow eval complete - patient passed. Original Note: Patient alert and oriented - tongue still painful areas - reports pain - medicated w/ scheduled vasotec (elevated BP) - bp down to 170's systolic in response. Also medicated w/ 0.5mg IVP dilaudid @ 1943. TLC dressing changed - educated patient about transfer to med surg floor.
[2021-06-06] VITALS (7 sets, daily range): BP systolic 180–225; BP diastolic 119–134; PULSE 108–120; RESP 15–20; TEMP 36.9–37.7; O2SAT 97–98; BMI 22.8
[2021-06-06] MEDS: Enalaprilat Dihydrate 1.25 MG/ML VIAL IVPUSH ×3 (01:25→10:22)
[2021-06-06] MEDS: ondansetron HCL 4 MG/2 ML VIAL IVPUSH (03:11)
[2021-06-06] MEDS: hydrALAZINE HCl 20 MG/ML VIAL 5 MG IVPUSH ×2 (03:12→05:02)
[2021-06-06] MEDS: Morphine Sulfate 4 MG/ML CARTRIDGE IVPUSH (03:59)
--- NOTE | 2021-06-06 04:06 | PC.NURSE ---
pt transfered from ICU.awake,alert,non verbal.shakes head to yes/no questions.0000 bp-184/121 hr-120. notified.received scheduled IV vasotec.o230 bp-210/120 manually hr-116.pt vomitted earlier. notified.ordered zofran 4mg iv and hydralazine 5mg iv x1.also ordered morphine 4mg iv x 1 dose for c/o headache.
--- NOTE | 2021-06-06 04:50 | PC.NURSE ---
bp-188/119 hr-117. notified.ordered another dose of hydralazine 5mg iv x1
[2021-06-06 06:56] LABS: Myeloperoxidase Antibody <1.0 AI; Proteinase 3 PR3 Antibodies <1.0 AI
--- NOTE | 2021-06-06 07:50 | HO.PM.IMPN ---
Subjective Subjective Date of Service: 06/06/21 Interval History: uncontrolled htn,pres,tongue swelling Review of Systems seems more awake, denies any chest pain or shortness of breath or fever chills or nausea or vomiting. Physical Exam Vital Signs: Vital Signs: Last Vital Signs Temp 98.6 F 06/06/21 04:00 Pulse 117 H 06/06/21 04:00 Resp 16 06/06/21 04:00 BP 188/119 H 06/06/21 04:00 Pulse Ox 97 06/06/21 04:00 BMI result Body Mass Index 22.8 physical exam: Appearance: Alert.? Oriented X3.? not in distress.? Eyes: Pupils equal, round and reactive to light.?? ENT: has nasal tube , tongue seems more pinkish , less swelling cvs: rrr, [id number] , no murmur res: clear to auscultation ,no rhonchii or wheezing abd: no rebound or guarding ,nt, bs present. ext pulses present , no cyanosis . neuro: axo3 , nonfocal. Objective Data Active Medications Chlorhexidine Gluconate (Chlorhexidine Gluc Oral Rinse 15 Ml Mouthwash) 15 ml BUCCAL TID [facility] Last Admin: 06/05/21 19:39 Dose: Not Given Documented by: NADIA Non-Admin Reason: not intubated anymore Enalaprilat (Enalaprilat Dihydrate 1.25 Mg/Ml Vial) 1.25 mg IVPUSH Q6H [facility]; Protocol Last Admin: 06/06/21 01:25 Dose: 1.25 mg Documented by: GARRY Heparin Sodium (Porcine) (Heparin Sodium,Porcine 5,000 Unit/Ml Vial) 5,000 unit SUBCUT Q8H [facility] Last Admin: 06/06/21 07:30 Dose: Not Given Documented by: BO Non-Admin Reason: Physician Held Med Heparin Sodium (Porcine) (Heparin Sodium,Porcine Flush 50 Units/5 Ml Syringe) 50 units IVFLUSH QSHIFT [facility] Last Admin: 06/06/21 07:30 Dose: Not Given Documented by: BO Non-Admin Reason: Physician Held Med Ampicillin Sodium/Sulbactam (Sodium 3 gm/ Sodium Chloride) 100 mls @ 200 mls/hr IV Q24H [facility] Last Infusion: 06/05/21 14:40 Dose: 0 mls/hr Documented by: ZHAO Omeprazole (Omeprazole 20 Mg/10 Ml Susp.Recon) 40 mg PO DAILY@0630 [facility] Last Admin: 06/05/21 05:45 Dose: Not Given Documented by: NADIA Non-Admin Reason: NPO Ondansetron HCl (Ondansetron Hcl 4 Mg/2 Ml Vial) 4 mg IVPUSH Q8H PRN PRN Reason: Nausea and Vomiting Last Admin: 06/06/21 03:11 Dose: 4 mg Documented by: GARRY Sevelamer Carbonate (Sevelamer Carbonate Powder 800 Mg Powd.Pack) 800 mg PO TIDWM [facility] Last Admin: 06/05/21 18:18 Dose: 800 mg Documented by: ZHAO Comments: was in dialysis Sodium Bicarbonate (Sodium Bicarbonate 650 Mg Tablet) 650 mg PO QID [facility] Last Admin: 06/05/21 19:38 Dose: 650 mg Documented by: NADIA Labs CBC & Chem 7: 06/05/21 05:38 06/06/21 12:03 Labs: Laboratory Results - last 24 hr 06/04/21 06/04/21 06/04/21 09:16 09:16 14:30 Homocysteine 23.0 H HARJINDER Screen NEGATIVE HARJINDER Titer TNP HARJINDER Titer 2 TNP HARJINDER Titer 3 TNP HARJINDER Pattern TNP HARJINDER Pattern 2 TNP HARJINDER Pattern 3 TNP Proteinase 3 (PR3) Ab <1.0 Myeloperoxidase Ab <1.0 Assessment and Plan (1) Angioneurotic edema, sequela: Status: Acute (2) Encephalopathy: Status: Acute (3) ESRD (end stage renal disease): Status: Acute Assessment and Plan: 1. htn uncontrolled Pres-improving d/w nephro and icu: blood pressure still uncontrolled-seen by speech-switched po po amlodipine ,coreg , hydralzine po, iv hydralazine for backup. Also please adjust dose of hydralazine to 50 mg q.6 if still blood pressure is running higher over the after 2 am in night 2. ESRD: seen by Nephrology, Since we are unable to perform PD , switch to hemodialysis HD TTS 3. tongue swelling/ injury: unclear etiology- thought to be possible Angioneurotic edema, sequela: hypercoagulability workup is pending and as well as serologies negative CTA of are head neck vessels still has ko feeds swallow and pt/ot eval added 4. hypokalemia:added replacement also started spirinolactone dvt prophylax: s/c heparin Quality Stroke Does the patient have a stroke diagnosis?: No VTE Prior VTE?: No VTE Risk Level:: Medical - moderate - high VTE Device Contraindication: N/A - Device Ordered VTE Drug Contraindication: N/A - Med Ordered
--- NOTE | 2021-06-06 10:58 | PM.PNNEP ---
Subjective Subjective Date of Service: 06/08/21 Interval history: Evnets noted Extubated Physical Exam Vital Signs: Vital Signs: Last Vital Signs Temp 98.5 F 06/06/21 07:58 Pulse 114 H 06/06/21 07:58 Resp 20 06/06/21 07:58 BP 180/130 H 06/06/21 07:58 Pulse Ox 97 06/06/21 07:58 BMI result Body Mass Index 22.8 Const: Other: ENT: Tongue is beter CVS: Normal heart rate and rhythm. Pulses normal. Normal S1 and S2 Respiratory: No respiratory distress. Breath sounds normal. No Wheezing. No rales Abdomen: Soft and nontender. No rigidity. No distention, patient has a peritoneal dialysis catheter in the abdomen Skin: Skin warm and dry. Extremities: Mild edema / anasarca Neuro: awake Objective Data Labs CBC & Chem 7: 06/08/21 06:17 06/08/21 06:17 Labs: Laboratory Results - last 24 hr 06/04/21 06/04/21 06/04/21 09:16 09:16 14:30 Homocysteine 23.0 H HARJINDER Screen NEGATIVE HARJINDER Titer TNP HARJINDER Titer 2 TNP HARJINDER Titer 3 TNP HARJINDER Pattern TNP HARJINDER Pattern 2 TNP HARJINDER Pattern 3 TNP Proteinase 3 (PR3) Ab <1.0 Myeloperoxidase Ab <1.0 Microbiology Microbiology Results: Microbiology 06/01/21 23:47 Blood - Venous Blood Culture - Preliminary No growth after 48 hours. 06/01/21 23:41 Blood - Venous Blood Culture - Preliminary No growth after 48 hours. 05/29/21 04:35 Blood - Venous Blood Culture - Final Staphylococcus epidermidis 05/29/21 04:35 Blood - Venous Blood Culture - Final Staphylococcus epidermidis Procedures Date of Service Date of Service: 06/06/21 Assessment & Plan Assessment and plan (1) ESRD (end stage renal disease): Status: Acute Assessment and Plan: ESRD on Peritoneal dialysis Severe Acidosis Anemia Since we are unable to perform PD , switch to hemodialysis HD TTS Severe anemia Transfuse PRBCs as indicated Epogen per protocol Uncontrolled HTN Catapress TTS #3 Add Metoprolol vig NGT BID and watch HR Can add Spironolactone Time Spent With Patient Time: Total time spent is greater than 50% in coordination of care (as documented) at patient's floor/unit and/or counseling patient: Time with patient: 25 - 35 minutes Progress Note: Quality Stroke Does the patient have a stroke diagnosis?: No
--- NOTE | 2021-06-06 11:48 | MHC.CLN ---
Addendum entered by Martine Christopher RD 06/06/21 13:31: SEEN BY POULTRY TRIMMER WITH DIET REC FOR PUREE WITH NECTAR THICK LIQUIDS, 1:1 ASSIST WITH FEEDING. TUBE FEEDING DISCONTINUED. HEMODIALYSIS STARTED 06/05. DIET CHANGED FOR HEMODIALYSIS NEEDS: 2 GRAM SODIUM, LOW POTASSIUM, LOW PHOSPHOROUS, PUREE WITH NECTAR THICK LIQUIDS. Original Note: F/U EXTUBATED 06/05. PERMACATH PLACED AND HEMODIALYSIS STARTED 06/05. NPO PENDING SWALLOW EVAL. PER WILLEM STARKS TO RESTART NG TUBE FEEDING. RECOMMEND NEPRO AT MAX GOAL RATE 40 ML/HR AND 240 ML FREE WATER FLUSHES Q 6 HRS TO PROVIDE 1728 KCALS (25KCALS/KG CMW), 78 G PROTEIN (1.1G/KG CMW), 1658 ML TOTAL FREE WATER FROM FORMULA AND FLUSHES (24 ML/KG CMW). START TF AT 20 ML/HR AND INCREASE BY 10 ML Q 4 HRS UNTIL MAX GOAL IS ACHIEVED. MONITOR TOLERANCE, RESIDUALS AND LYTES.
[2021-06-06 12:32] LABS: Anion Gap 21 (12-20); Blood Urea Nitrogen 55 mg/dL (9-16); Calcium 8.4 mg/dL (8.4-10.2); Carbon Dioxide 15 mmol/L (22-29); Chloride 103 mmol/L (96-108); Creatinine Clr Calc Pharmacy 8.5; Estimated Glomerular Filt Rate 5; Glucose Random 98 mg/dL (60-115); Potassium 3.1 mmol/L (3.3-5.1); Sodium 136 mmol/L (135-145)
--- NOTE | 2021-06-06 13:13 | MHC.SL.SWA ---
Speech Pathologist Impression: Risk of Aspiration Oralpharyngeal Dysphagia Risk of Aspiration Due to: Neurological Condition Hx of Recent Extubation Weak Voice Dysphasia Diet Status: Upgrade Liquid Consistency and Strategies for Safe Swallow: Liquid Intake Recommendation: [place] Thick Liquid Intake Strategies: Small Sips No Straws Solid Food Consistency: Dietary Recommendations: Pureed (NDD1) Additional Modifications to Solid Foods: Patient seen for bedside dysphagia evaluation this morning. Patient presents with moderate to severe generalized oral weakness, reduced ROM of jaw, tongue, and with labial retraction. Patient requires 1:1 assistance feeding. Patient consistently takes small bites, 1/3-1/2 teaspoon amount at a time. Note delayed AP transport secondary to reduced tongue strength and movement. Very slow bolus manipulation and propulsion. Delayed and incomplete elevation with laryngeal palpation. Overt s/s of aspiration when consuming thin liquid by spoon. At this time, recommend PUREED (NDD1) solids and NECTAR THICK liquids, with pills CRUSHED in PUREE. Patient to be provided with 1:1 assistance feeding with consistent oral cavity check. Aspiration precautions apply. Message sent to MD, RD, and RN. to change patient's diet order. READING INTERVENTION TEACHER will follow patient M-F during hospitalization to monitor tolerance of PO and re-assess for potential in upgrade of diet textures. Oral Medication Intake: Crushed with Puree Compensatory Strategies and Precautions to be Taken for Safe Swallow: Sitting Upright (90 deg) No Straw Liquids from Cup Liquids from Spoon Small Bites and Sips Alternate Liquids/Solids Rate of Ingestion Change Oral Check Supervision While Eating and Drinking for Safe Swallow: Total Assistance Swallowing Recommended Treatments: Compens. Strategy Educat. Recommendation for Speech: Inpatient Speech Therapy Frequency/Duration: M-F Solderer Assembler Clinican/Clinical Fellow: No Supervisory Statement: I have reviewed and agree with the student/clinical fellow's documentation: N/A Speech Language Pathologist: Kourtney Avila M.A., CCC-READING INTERVENTION TEACHER
[2021-06-06] MEDS: Metoprolol Tartrate 50 MG TABLET NG-TUBE (13:15)
[2021-06-06] MEDS: cloNIDine 0.3 MG PATCH.TDWK TRANSDERMA (13:15)
[2021-06-06] MEDS: amLODIPine Besylate 10 MG TABLET PO (13:15)
[2021-06-06] MEDS: hydrALAZINE HCl 20 MG/ML VIAL 10 MG IVPUSH ×2 (13:16→17:19)
[2021-06-06] MEDS: Spironolactone 25 MG TABLET NG-TUBE (13:16)
[2021-06-06] MEDS: Potassium Chloride/H20 10 MEQ/100 ML PIGGYBACK 100 MEQ IV (14:01)
[2021-06-06] MEDS: Chlorhexidine Gluc Oral Rinse 15 ML MOUTHWASH BUCCAL ×2 (14:03→21:03)
[2021-06-06] MEDS: Ampicillin Sodium/Sulbactam Na 3 GM in 0.9 % Sodium Chloride 100 ML IV (14:10)
[2021-06-06] MEDS: Metoprolol Tartrate 5 MG/5 ML VIAL IVPUSH (14:47)
--- NOTE | 2021-06-06 14:53 | PC.NURSE ---
BP at 1440 200/138 Lopressor 5mg IV given PRN. Pt started on a pureed regular diet with nectar thick liquids. 1:1 feed. pills crushed in puree (pudding) . Takes 1/3 -1/2 teaspoon at a time. HOB elevated Tolerated well.
[2021-06-06] MEDS: Ketorolac Tromethamine 30 MG/ML VIAL 15 MG IVPUSH (15:55)
--- NOTE | 2021-06-06 16:16 | MHC.CM.PN ---
Pt transitioned out of ICU to MS: Speech to eval for diet modifications. Referrals made to [facility] sites with hemodialysis on campus as pt may require continued HD until she is able to resume peritoneal dialysis upon return to home. CM to revisit d/c planning with pt as she was minimally participatory in ICU
[2021-06-06 16:31] LABS: Cardiolipin IgG Ab <2.0 GPL-U/mL; Cardiolipin IgM Ab <2.0 MPL-U/mL
[2021-06-06] MEDS: Acetaminophen Oral Liquid 650 MG/20.3 ML SOLUTION PO (17:21)
[2021-06-06] MEDS: Heparin Sodium,Porcine Flush 50 UNITS/5 ML SYRINGE IVFLUSH (17:22)
[2021-06-06] MEDS: carvediloL 6.25 MG TABLET PO (21:03)
[2021-06-06] MEDS: hydrALAZINE HCl 25 MG TABLET PO (21:03)
[2021-06-07] VITALS (7 sets, daily range): BP systolic 142–198; BP diastolic 92–130; PULSE 94–109; RESP 15–17; TEMP 37.1–37.6; O2SAT 97–99
[2021-06-07] MEDS: hydrALAZINE HCl 20 MG/ML VIAL 10 MG IVPUSH ×2 (00:32→07:45)
[2021-06-07] MEDS: Heparin Sodium,Porcine Flush 50 UNITS/5 ML SYRINGE IVFLUSH ×3 (00:32→20:35)
[2021-06-07] MEDS: hydrALAZINE HCl 25 MG TABLET PO (02:09)
[2021-06-07 06:26] LABS: MANUAL DIFF FLAG NO
[2021-06-07 06:28] LABS: Basophils Percent Auto 0.2 % (0-2); Eosinophils Absolute Auto 0.2 X10*3/uL (0.0-0.4); Eosinophils Percent Auto 1.5 % (0-4); Hematocrit 28.1 % (37.0-47.0); Hemoglobin 9.5 g/dl (12.0-16.0); Imm Gran Abs Auto 0.47 X10*3/uL (0.00-0.03); Lymphocytes Absolute Auto 1.4 X10*3/uL (1.2-4.9); Lymphocytes Percent Auto 8.9 % (20-40); Mean Corpuscular HGB Conc 33.8 g/dl (31.0-35.0); Mean Corpuscular Hemoglobin 28.4 pg (27.0-33.0); Mean Corpuscular Volume 83.9 fL (80.0-98.0); Mean Platelet Volume 11.3 fL (9.4-12.3); Monocytes Absolute Auto 0.9 X10*3/uL (0.1-1.2); Monocytes Percent Auto 5.9 % (2-11); Neutrophils Absolute Auto 12.7 x10*3/uL (2.0-8.3); Neutrophils Percent Auto 80.5 % (45-73); Platelet Count 167 X10*3/uL (160-400); Red Blood Count 3.35 X10*6/uL (4.20-5.50); Red Cell Distribution Width 15.6 % (11.0-16.0); White Blood Count 15.8 X10*3/uL (4.8-10.8)
[2021-06-07 06:41] LABS: INTERNATIONAL NORM RATIO 1.1 (0.9-1.1); Prothrombin Time 12.3 SEC (9.9-13.0)
--- NOTE | 2021-06-07 08:24 | P.PNIM_ITS ---
Subjective Subjective Date of Service: 06/07/21 Interval History: uncontrolled hypertension, PermCath site bleeding. Review of Systems During this morning- patient blood pressure is running range of 250/160- when patient went to dialysis. overnight the blood pressure slightly responding to the anti hypertension medications was in 190/120 range but this morning is again going up as above. Patient denied any chest pain or shortness of breath or abdominal pain or fever or chills or cough or phlegm or headache or bending blurry vision. Denies any new weakness or numbness. mental status unchanged seems similar to yesterday. Physical Exam Vital Signs: Vital Signs: Last Vital Signs Temp 99 F 06/07/21 04:00 Pulse 109 H 06/07/21 04:00 Resp 15 06/07/21 04:00 BP 178/130 H 06/07/21 04:00 Pulse Ox 98 06/07/21 04:00 BMI result Body Mass Index 22.8 Appearance: Alert.? Oriented X3.? not in distress.? Eyes: Pupils equal, round and reactive to light.?? ENT: has nasal tube , tongue seems more pinkish , less swelling cvs: rrr, [id number] , no murmur res: clear to auscultation ,no rhonchii or wheezing abd: no rebound or guarding ,nt, bs present. ext pulses present , no cyanosis . neuro: axo3 , nonfocal. Objective Data Active Medications Acetaminophen (Acetaminophen Oral Liquid 650 Mg/20.3 Ml Solution) 650 mg PO Q4H PRN PRN Reason: Pain, Mild (Pain Scale 1-3) Last Admin: 06/06/21 17:21 Dose: 650 mg Documented by: ROSIE Amlodipine Besylate (Amlodipine Besylate 10 Mg Tablet) 10 mg PO DAILY [facility]; Protocol Last Admin: 06/06/21 13:15 Dose: 10 mg Documented by: BO Carvedilol (Carvedilol 12.5 Mg Tablet) 12.5 mg PO BID [facility]; Protocol Chlorhexidine Gluconate (Chlorhexidine Gluc Oral Rinse 15 Ml Mouthwash) 15 ml BUCCAL TID [facility] Last Admin: 06/06/21 21:03 Dose: 15 ml Documented by: ERIK Heparin Sodium (Porcine) (Heparin Sodium,Porcine Flush 50 Units/5 Ml Syringe) 50 units IVFLUSH QSHIFT [facility] Last Admin: 06/07/21 00:32 Dose: 50 units Documented by: ERIK Hydralazine HCl (Hydralazine Hcl 20 Mg/Ml Vial) 10 mg IVPUSH Q4H PRN; Protocol PRN Reason: htn Last Admin: 06/07/21 07:45 Dose: 10 mg Documented by: BRADEN Hydralazine HCl (Hydralazine Hcl 25 Mg Tablet) 75 mg PO Q6H [facility] Ampicillin Sodium/Sulbactam (Sodium 3 gm/ Sodium Chloride) 100 mls @ 200 mls/hr IV Q24H [facility] Last Infusion: 06/06/21 15:18 Dose: 0 mls/hr Documented by: ZAINABENOMAT Lidocaine/Diphenhydr/Alum/Mg/Simeth (Mag&Al/Sim/Diphenhyd/Lidocaine 10 Ml Oral.Susp) 10 ml PO Q4H PRN; Protocol PRN Reason: mouth pain Omeprazole (Omeprazole 20 Mg/10 Ml Susp.Recon) 40 mg PO BID@0630,1630 [facility] Ondansetron HCl (Ondansetron Hcl 4 Mg/2 Ml Vial) 4 mg IVPUSH Q8H PRN PRN Reason: Nausea and Vomiting Last Admin: 06/06/21 03:11 Dose: 4 mg Documented by: GARRY Sevelamer Carbonate (Sevelamer Carbonate Powder 800 Mg Powd.Pack) 800 mg PO TIDWM [facility] Last Admin: 06/05/21 18:18 Dose: 800 mg Documented by: HZAO Comments: was in dialysis Sodium Bicarbonate (Sodium Bicarbonate 650 Mg Tablet) 650 mg PO QID [facility] Last Admin: 06/05/21 19:38 Dose: 650 mg Documented by: NADIA Labs CBC & Chem 7: 06/07/21 06:20 06/06/21 12:03 Labs: Laboratory Results - last 24 hr 06/04/21 06/06/21 06/07/21 14:30 12:03 06:20 MCV 83.9 MCH 28.4 MCHC 33.8 RDW 15.6 Plt Count 167 MPV 11.3 Immature Gran % (Auto) 3.0 H Neut % (Auto) 80.5 H Lymph % (Auto) 8.9 L [place] % (Auto) 5.9 Eos % (Auto) 1.5 Baso % (Auto) 0.2 Lymph # (Auto) 1.4 [place] # (Auto) 0.9 Eos # (Auto) 0.2 Baso # (Auto) 0.0 Abs Immat Gran (auto) 0.47 H Absolute Neuts (auto) 12.7 H Absolute Nucleated RBC 0.000 Nucleated RBC % (auto) 0.0 PT INR Anion Gap 21 H Estim Creat Clear Calc 8.5 Estimated GFR 5 Random Glucose 98 Calcium 8.4 D Anti-Cardiolipin IgG Ab <2.0 Anti-Cardiolipin IgM Ab <2.0 Blood Type Antibody Screen 06/07/21 06/07/21 06:20 06:20 MCV MCH MCHC RDW Plt Count MPV Immature Gran % (Auto) Neut % (Auto) Lymph % (Auto) [place] % (Auto) Eos % (Auto) Baso % (Auto) Lymph # (Auto) [place] # (Auto) Eos # (Auto) Baso # (Auto) Abs Immat Gran (auto) Absolute Neuts (auto) Absolute Nucleated RBC Nucleated RBC % (auto) PT 12.3 INR 1.1 Anion Gap Estim Creat Clear Calc Estimated GFR Random Glucose Calcium Anti-Cardiolipin IgG Ab Anti-Cardiolipin IgM Ab Blood Type O Positive Antibody Screen NEGATIVE Microbiology Microbiology Results: Microbiology 06/01/21 23:47 Blood Culture - Final Blood - Venous No growth after 5 days. 06/01/21 23:41 Blood Culture - Final Blood - Venous No growth after 5 days. Assessment and Plan (1) Angioneurotic edema, sequela: Status: Acute (2) Encephalopathy: Status: Acute (3) HTN (hypertension): Status: Acute Assessment and Plan: 1. htn urgency Pres-improving d/w nephro and icu: blood pressure still uncontrolled-seen by speech-switched po- po amlodipine ,coreg , hydralzine po, iv hydralazine for backup. ? Even after above blood pressure meds medication adjustment and in addition with hemodialysis patient blood pressure is still running significantly high in 250/160 range Given IV hydralazine. discussed with Nephrology and ICU in detail patient needs to go to ICU service- for further management may need nicardipine drip. Vasotec was discontinued as per discussion with Nephrology since patient has tongue swelling and question of initialpossible Angioneurotic edema. 2.? ESRD: patient has PermCath site oozing last night and was stopped with pressure- currently PermCath site oozing is stopped. We called IR already to look at PermCath site again. ?seen by Nephrology, Since we are unable to perform PD , switch to hemodialysis HD TTS 3. tongue swelling/ injury: unclear etiology- thought to be possible Angioneurotic edema, sequela: hypercoagulability workup is pending and as well as serologies negative CTA of are head neck vessels still has ko feeds swallow and pt/ot eval added 4. hypokalemia: Monitor BMP, replace as needed. Morning labs are pending dvt prophylax: Venodyne since patient had PermCath site oozing above management discussed with ICU attending Dr. Hayden in detail length, patient is transferred under ICU service. Quality Stroke Does the patient have a stroke diagnosis?: No VTE Prior VTE?: No VTE Risk Level:: Medical - moderate - high VTE Device Contraindication: N/A - Device Ordered VTE Drug Contraindication: N/A - Med Ordered
[2021-06-07 08:47] LABS: Hematocrit 33.8 % (37.0-47.0); Hemoglobin 11.4 g/dl (12.0-16.0); Mean Corpuscular HGB Conc 33.7 g/dl (31.0-35.0); Mean Corpuscular Hemoglobin 28.1 pg (27.0-33.0); Mean Corpuscular Volume 83.3 fL (80.0-98.0); Mean Platelet Volume 10.3 fL (9.4-12.3); NRBC Pct Auto 0.1 /100WBC (0.0-0.2); Platelet Count 206 X10*3/uL (160-400); Red Blood Count 4.06 X10*6/uL (4.20-5.50); Red Cell Distribution Width 15.8 % (11.0-16.0); White Blood Count 18.4 X10*3/uL (4.8-10.8)
[2021-06-07 09:16] LABS: Anion Gap 21 (12-20); Blood Urea Nitrogen 31 mg/dL (9-16); Calcium 8.9 mg/dL (8.4-10.2); Carbon Dioxide 19 mmol/L (22-29); Chloride 101 mmol/L (96-108); Creatinine Clr Calc Pharmacy 13.8; Estimated Glomerular Filt Rate 9; Glucose Random 92 mg/dL (60-115); Potassium 2.9 mmol/L (3.3-5.1); Sodium 138 mmol/L (135-145)
--- NOTE | 2021-06-07 11:08 | PM.PNNEP ---
Subjective Subjective Date of Service: 06/08/21 Interval history: Seen during HD Physical Exam Vital Signs: Vital Signs: Last Vital Signs Temp 99 F 06/07/21 04:00 Pulse 109 H 06/07/21 04:00 Resp 15 06/07/21 04:00 BP 178/130 H 06/07/21 04:00 Pulse Ox 98 06/07/21 04:00 BMI result Body Mass Index 22.8 Const: Other: ENT: Tongue is beter CVS: Normal heart rate and rhythm. Pulses normal. Normal S1 and S2 Respiratory: No respiratory distress. Breath sounds normal. No Wheezing. No rales Abdomen: Soft and nontender. No rigidity. No distention, patient has a peritoneal dialysis catheter in the abdomen Skin: Skin warm and dry. Extremities: Mild edema / anasarca Neuro: awake Neuro: Other: Sedated and intubated. When I open her eyes, her pupils were about 3 mm round reactive. There was little bit of roving motions. There was little bit of grimace with pain. Deep tendon reflexes were absent with flexor plantars. Tongue was severely swollen. Exam was limited. Objective Data Labs CBC & Chem 7: 06/08/21 06:17 06/08/21 06:17 Labs: Laboratory Results - last 24 hr 06/04/21 06/06/21 06/07/21 14:30 12:03 06:20 WBC 15.8 H RBC 3.35 L Hgb 9.5 L Hct 28.1 L MCV 83.9 MCH 28.4 MCHC 33.8 RDW 15.6 Plt Count 167 MPV 11.3 Immature Gran % (Auto) 3.0 H Neut % (Auto) 80.5 H Lymph % (Auto) 8.9 L [place] % (Auto) 5.9 Eos % (Auto) 1.5 Baso % (Auto) 0.2 Lymph # (Auto) 1.4 [place] # (Auto) 0.9 Eos # (Auto) 0.2 Baso # (Auto) 0.0 Abs Immat Gran (auto) 0.47 H Absolute Neuts (auto) 12.7 H Absolute Nucleated RBC 0.000 Nucleated RBC % (auto) 0.0 PT INR Sodium 136 Potassium 3.1 L Chloride 103 Carbon Dioxide 15 L Anion Gap 21 H BUN 55 H Creatinine 8.87 H* Estim Creat Clear Calc 8.5 Estimated GFR 5 Random Glucose 98 Calcium 8.4 D Anti-Cardiolipin IgG Ab <2.0 Anti-Cardiolipin IgM Ab <2.0 Blood Type Antibody Screen 06/07/21 06/07/21 06/07/21 06:20 06:20 08:21 WBC 18.4 H RBC 4.06 L D Hgb 11.4 L Hct 33.8 L D MCV 83.3 MCH 28.1 MCHC 33.7 RDW 15.8 Plt Count 206 MPV 10.3 Immature Gran % (Auto) Neut % (Auto) Lymph % (Auto) [place] % (Auto) Eos % (Auto) Baso % (Auto) Lymph # (Auto) [place] # (Auto) Eos # (Auto) Baso # (Auto) Abs Immat Gran (auto) Absolute Neuts (auto) Absolute Nucleated RBC 0.020 H Nucleated RBC % (auto) 0.1 PT 12.3 INR 1.1 Sodium Potassium Chloride Carbon Dioxide Anion Gap BUN Creatinine Estim Creat Clear Calc Estimated GFR Random Glucose Calcium Anti-Cardiolipin IgG Ab Anti-Cardiolipin IgM Ab Blood Type O Positive Antibody Screen NEGATIVE 06/07/21 08:21 WBC RBC Hgb Hct MCV MCH MCHC RDW Plt Count MPV Immature Gran % (Auto) Neut % (Auto) Lymph % (Auto) [place] % (Auto) Eos % (Auto) Baso % (Auto) Lymph # (Auto) [place] # (Auto) Eos # (Auto) Baso # (Auto) Abs Immat Gran (auto) Absolute Neuts (auto) Absolute Nucleated RBC Nucleated RBC % (auto) PT INR Sodium 138 Potassium 2.9 L Chloride 101 Carbon Dioxide 19 L Anion Gap 21 H BUN 31 H Creatinine 5.45 H* Estim Creat Clear Calc 13.8 Estimated GFR 9 Random Glucose 92 Calcium 8.9 Anti-Cardiolipin IgG Ab Anti-Cardiolipin IgM Ab Blood Type Antibody Screen Microbiology Microbiology Results: Microbiology 06/01/21 23:47 Blood - Venous Blood Culture - Final No growth after 5 days. 06/01/21 23:41 Blood - Venous Blood Culture - Final No growth after 5 days. 05/29/21 04:35 Blood - Venous Blood Culture - Final Staphylococcus epidermidis 05/29/21 04:35 Blood - Venous Blood Culture - Final Staphylococcus epidermidis Procedures Date of Service Date of Service: 06/07/21 Assessment & Plan Assessment and plan (1) ESRD (end stage renal disease): Status: Acute Assessment and Plan: ESRD on Peritoneal dialysis Severe Acidosis Anemia Since we are unable to perform PD , switch to hemodialysis HD TTS Severe anemia Transfuse PRBCs as indicated Epogen per protocol SEvere Uncontrolled HTN Avoid ACEi May need Nicardipine Discussed with Time Spent With Patient Time: Total time spent is greater than 50% in coordination of care (as documented) at patient's floor/unit and/or counseling patient: Time with patient: 15 - 24 minutes Progress Note: Quality Stroke Does the patient have a stroke diagnosis?: No
[2021-06-07] MEDS: Sodium Bicarbonate 650 MG TABLET PO ×3 (11:57→20:35)
[2021-06-07] MEDS: carvediloL 25 MG TABLET PO ×2 (11:57→20:36)
[2021-06-07] MEDS: hydrALAZINE HCl 25 MG TABLET 75 MG PO ×3 (11:57→20:35)
[2021-06-07] MEDS: Sevelamer Carbonate Powder 800 MG POWD.PACK PO ×2 (11:58→18:14)
[2021-06-07] MEDS: amLODIPine Besylate 10 MG TABLET PO (11:58)
--- NOTE | 2021-06-07 15:51 | PC.NURSE ---
06/07/21 1530 To patient's bedside. Gil catheter dressing saturated with blood. Dressing saturated with sanguineous drainage. Sterile dressing change done with sterile technique. Small amount of drainage noted on bottom lateral portion of dressing. Lite dressing applied to site for 15 minutes. No increase in size of drainage noted. Report given to Bhavana Olsen, RETAIL GREETER.
--- NOTE | 2021-06-07 16:28 | PM.NEUROCN ---
History of Present Illness Data of Consult Service Date: 06/07/21 Primary Care Provider: Unknown Physician HPI Reason for consult: Abnormal MRI. Severe dysarthria This is a 41-year-old woman who was admitted in an unresponsive state in with her tongue chewed up or necrotic and has severe dysarthria. She tells me that she has had a history of seizures in the past but is unable to give me details. She is apparently followed at [facility] neuroology. There was no witnessed seizure, but she was found unresponsive with her face down and her MRI has shown findings consistent with PRE S. She is gradually improving and compare to when she came in she is much better. There have been no seizure recurrence is Review of Systems Review of Systems: During this morning- patient blood pressure is running range of 250/160- when patient went to dialysis. overnight the blood pressure slightly responding to the anti hypertension medications was in 190/120 range but this morning is again going up as above. Patient denied any chest pain or shortness of breath or abdominal pain or fever or chills or cough or phlegm or headache or bending blurry vision. Denies any new weakness or numbness. mental status unchanged seems similar to yesterday. Yes Unobtainable due to mental condition PMFSH Social History Social History Household Members: Unknown / Unable to assess Housing: House Unable to assess alcohol history related to: Unknown Alcohol intake: unknown Patient Tobacco Use Status: Tobacco use Unknown Use of substances other than those prescribed or required for medical reasons: Unknown Currently Displaying Signs/Symptoms of Drug Intoxication Withdrawal: No Spiritual Healthcare Practices: unable to assess Jain Healthcare Practices: unable to assess Cultural Healthcare Practices: unable to assess Advance Directives: Yes Advance Directives on File: Yes Advance Directives Date on File: 05/29/21 Recently lost weight without trying: Unsure service: No Current occupational status: disabled Meds Allergies Allergy/AdvReac Type Severity Reaction Status Date / Time No Known Allergies Allergy Verified 05/29/21 00:36 Active Medications: Current Medications Acetaminophen (Acetaminophen Oral Liquid 650 Mg/20.3 Ml Solution) 650 mg PO Q4H PRN PRN Reason: Pain, Mild (Pain Scale 1-3) Last Admin: 06/06/21 17:21 Dose: 650 mg Documented by: Amlodipine Besylate (Amlodipine Besylate 10 Mg Tablet) 10 mg PO DAILY [facility]; Protocol Last Admin: 06/07/21 11:58 Dose: 10 mg Documented by: Carvedilol (Carvedilol 25 Mg Tablet) 25 mg PO BID [facility]; Protocol Last Admin: 06/07/21 11:57 Dose: 25 mg Documented by: Heparin Sodium (Porcine) (Heparin Sodium,Porcine Flush 50 Units/5 Ml Syringe) 50 units IVFLUSH QSHIFT [facility] Last Admin: 06/07/21 11:57 Dose: 50 units Documented by: Hydralazine HCl (Hydralazine Hcl 20 Mg/Ml Vial) 10 mg IVPUSH Q4H PRN; Protocol PRN Reason: htn Last Admin: 06/07/21 07:45 Dose: 10 mg Documented by: Hydralazine HCl (Hydralazine Hcl 25 Mg Tablet) 75 mg PO Q6H [facility] Last Admin: 06/07/21 11:57 Dose: 75 mg Documented by: Ampicillin Sodium/Sulbactam (Sodium 3 gm/ Sodium Chloride) 100 mls @ 200 mls/hr IV Q24H [facility] Last Infusion: 06/06/21 15:18 Dose: Infused Documented by: Potassium Chloride () 10 meq in 100 mls @ 100 mls/hr IV Q1H [facility] Stop: 06/07/21 16:44 Lidocaine/Diphenhydr/Alum/Mg/Simeth (Mag&Al/Sim/Diphenhyd/Lidocaine 10 Ml Oral.Susp) 10 ml PO Q4H PRN; Protocol PRN Reason: mouth pain Omeprazole (Omeprazole 20 Mg/10 Ml Susp.Recon) 40 mg PO BID@0630,1630 [facility] Ondansetron HCl (Ondansetron Hcl 4 Mg/2 Ml Vial) 4 mg IVPUSH Q8H PRN PRN Reason: Nausea and Vomiting Last Admin: 06/06/21 03:11 Dose: 4 mg Documented by: Sevelamer Carbonate (Sevelamer Carbonate Powder 800 Mg Powd.Pack) 800 mg PO TIDWM [facility] Last Admin: 06/07/21 11:58 Dose: 800 mg Documented by: Sodium Bicarbonate (Sodium Bicarbonate 650 Mg Tablet) 650 mg PO QID [facility] Last Admin: 06/07/21 12:03 Dose: Not Given Documented by: Home Medications Medication Instructions Recorded Confirmed Last Taken Type clindamycin 1 %-benzoyl peroxide 5 1 applic TOPICAL QAM 05/29/21 05/29/21 Unknown History % topical gel losartan 100 mg tablet 50 mg PO BID 05/29/21 05/29/21 Unknown History tretinoin 0.025 % topical cream 1 applic TOPICAL BEDTIME 05/29/21 05/29/21 Unknown History Physical Exam Vital Signs: Vital Signs: Last Vital Signs Temp 99 F 06/07/21 04:00 Pulse 100 06/07/21 13:00 Resp 17 06/07/21 13:00 BP 142/92 H 06/07/21 13:00 Pulse Ox 97 06/07/21 13:00 BMI result Body Mass Index 22.8 Const: Other: ENT: Tongue is beter CVS: Normal heart rate and rhythm. Pulses normal. Normal S1 and S2 Respiratory: No respiratory distress. Breath sounds normal. No Wheezing. No rales Abdomen: Soft and nontender. No rigidity. No distention, patient has a peritoneal dialysis catheter in the abdomen Skin: Skin warm and dry. Extremities: Mild edema / anasarca Neuro: awake Neuro: Other: She is alert, oriented to month, year, place and person has severe dysarthria. She is generally slow unresponsive with a blank look. Pupils round reactive to light and accommodation. Visual rae appear to be intact. She has general weakness of the upper extremities with some dysmetria on [id number] test. Strength in the lower extremities is normal. Plantar response are flexor Results Labs CBC & Chem 7: 06/07/21 08:21 06/07/21 08:21 Labs: Short CBC 06/07/21 06/07/21 Range/Units 06:20 08:21 WBC 15.8 H 18.4 H (4.8-10.8) X10*3/uL Hgb 9.5 L 11.4 L (12.0-16.0) g/dl Hct 28.1 L 33.8 L D (37.0-47.0) % Plt Count 167 206 (160-400) X10*3/uL BMP 06/07/21 08:21 Sodium 138 Potassium 2.9 L Chloride 101 Carbon Dioxide 19 L BUN 31 H Creatinine 5.45 H* Calcium 8.9 Microbiology Microbiology Results: Microbiology 06/01/21 23:47 Blood - Venous Blood Culture - Final No growth after 5 days. 06/01/21 23:41 Blood - Venous Blood Culture - Final No growth after 5 days. 05/29/21 04:35 Blood - Venous Blood Culture - Final Staphylococcus epidermidis 05/29/21 04:35 Blood - Venous Blood Culture - Final Staphylococcus epidermidis Assessment and Plan (1) Angioneurotic edema, sequela: Status: Acute (2) Encephalopathy: Status: Acute (3) HTN (hypertension): Status: Acute (4) Seizure disorder: Status: Acute She has had no further seizures. She tells me she has had epilepsy in the past. Would continue her Keppra 1000 mg twice a day. (5) PRES (posterior reversible encephalopathy syndrome): Status: Acute Expect her MRI changes to resolve with better control of blood pressure. Followup MRI in one week 1. htn urgency Pres-improving d/w nephro and icu: blood pressure still uncontrolled-seen by speech-switched po- po amlodipine ,coreg , hydralzine po, iv hydralazine for backup. ? Even after above blood pressure meds medication adjustment and in addition with hemodialysis patient blood pressure is still running significantly high in 250/160 range Given IV hydralazine. discussed with Nephrology and ICU in detail patient needs to go to ICU service- for further management may need nicardipine drip. Vasotec was discontinued as per discussion with Nephrology since patient has tongue swelling and question of initialpossible Angioneurotic edema. 2.? ESRD: patient has PermCath site oozing last night and was stopped with pressure- currently PermCath site oozing is stopped. We called IR already to look at PermCath site again. ?seen by Nephrology, Since we are unable to perform PD , switch to hemodialysis HD TTS 3. tongue swelling/ injury: unclear etiology- thought to be possible Angioneurotic edema, sequela: hypercoagulability workup is pending and as well as serologies negative CTA of are head neck vessels still has ko feeds swallow and pt/ot eval added 4. hypokalemia: Monitor BMP, replace as needed. Morning labs are pending dvt prophylax: Venodyne since patient had PermCath site oozing above management discussed with ICU attending Dr. Hayden in detail length, patient is transferred under ICU service. Procedures Date of Service Date of Service: 06/07/21
--- NOTE | 2021-06-07 16:50 | MHC.SL.SWA ---
Speech Pathologist Impression: Risk of Aspiration Oralpharyngeal Dysphagia Risk of Aspiration Due to: Neurological Condition Hx of Recent Extubation Weak Voice Dysphasia Diet Status: Upgrade Liquid Consistency and Strategies for Safe Swallow: Liquid Intake Recommendation: Pudding Thick Liquid Intake Strategies: Liquids by Teaspoon Only Solid Food Consistency: Dietary Recommendations: Pureed (NDD1) Additional Modifications to Solid Foods: Patient seen for bedside dysphagia evaluation this morning. Patient presents with moderate to severe generalized oral weakness, reduced ROM of jaw, tongue, and with labial retraction. Patient requires 1:1 assistance feeding. Patient consistently takes small bites, 1/3-1/2 teaspoon amount at a time. Note delayed AP transport secondary to reduced tongue strength and movement. Very slow bolus manipulation and propulsion. Delayed and incomplete elevation with laryngeal palpation. Overt s/s of aspiration when consuming thin liquid by spoon. At this time, recommend PUREED (NDD1) solids and NECTAR THICK liquids, with pills CRUSHED in PUREE. Patient to be provided with 1:1 assistance feeding with consistent oral cavity check. Aspiration precautions apply. Message sent to MD, RD, and RN. to change patient's diet order. BIOSTATISTICIAN will follow patient M-F during hospitalization to monitor tolerance of PO and re-assess for potential in upgrade of diet textures. Oral Medication Intake: Crushed with Puree Compensatory Strategies and Precautions to be Taken for Safe Swallow: Sitting Upright (90 deg) Double Swallow No Straw Liquids from Spoon Small Bites and Sips Rate of Ingestion Change Oral Check Supervision While Eating and Drinking for Safe Swallow: Total Supervision (1:1) Foods to Avoid: Swallowing Recommended Treatments: Compens. Strategy Educat. Recommendation for Speech: Inpatient Speech Therapy Pt was transferred to ICU on 06/07 due to uncontrolled high blood pressure. At end of 06/07, Pt was pending transfer back to [facility] floor. Pt was initially in awkward position in bed, w/ assistance was able to into position to have head of bed at 90 Degrees. Pt was non-verbal throughout session, communicating through y/n gesture responses. Pt agreed to trial of puree. On oral inspection, tongue continues to be enlarged, but can be contained in mouth. Pt given tsp of puree, produced a prolonged, labored, oral phase on puree w/ 2-3 intermittent swallows w/decreased laryngeal elevation. After single presentation, Pt declined further trials. Recommend continue current diet of PUREE, w/ nectar thick liquids, w/full assistance and support during meals, close monitor of swallow, oral check, and providing only amount tolerated by Pt. Frequency/Duration: M-F Avionics Systems Repairer Clinican/Clinical Fellow: No Supervisory Statement: I have reviewed and agree with the student/clinical fellow's documentation: N/A Speech Language Pathologist: Nadege Bautista M.A., CCC-BIOSTATISTICIAN
[2021-06-07] MEDS: Ampicillin Sodium/Sulbactam Na 3 GM in 0.9 % Sodium Chloride 100 ML IV (17:35)
[2021-06-07] MEDS: Potassium Chloride/H20 10 MEQ/100 ML PIGGYBACK 100 MEQ IV ×2 (18:13→20:35)
[2021-06-08] VITALS (9 sets, daily range): BP systolic 140–165; BP diastolic 60–104; PULSE 75–94; RESP 16–22; TEMP 36.4–36.8; O2SAT 96–98
[2021-06-08] MEDS: hydrALAZINE HCl 25 MG TABLET 75 MG PO ×4 (02:56→21:01)
[2021-06-08] MEDS: Heparin Sodium,Porcine Flush 50 UNITS/5 ML SYRINGE IVFLUSH ×5 (02:56→22:50)
[2021-06-08 06:39] LABS: Hematocrit 26.6 % (37.0-47.0); Hemoglobin 8.8 g/dl (12.0-16.0); Mean Corpuscular HGB Conc 33.1 g/dl (31.0-35.0); Mean Corpuscular Hemoglobin 28.4 pg (27.0-33.0); Mean Corpuscular Volume 85.8 fL (80.0-98.0); Mean Platelet Volume 10.1 fL (9.4-12.3); Platelet Count 157 X10*3/uL (160-400); Red Cell Distribution Width 15.7 % (11.0-16.0); White Blood Count 13.4 X10*3/uL (4.8-10.8)
[2021-06-08 07:18] LABS: Anion Gap 18 (12-20); Blood Urea Nitrogen 33 mg/dL (9-16); Calcium 8.2 mg/dL (8.4-10.2); Carbon Dioxide 21 mmol/L (22-29); Chloride 103 mmol/L (96-108); Estimated Glomerular Filt Rate 7; Glucose Random 85 mg/dL (60-115); Potassium 3.2 mmol/L (3.3-5.1); Sodium 139 mmol/L (135-145)
[2021-06-08] MEDS: Sodium Bicarbonate 650 MG TABLET PO ×4 (07:24→21:02)
[2021-06-08] MEDS: amLODIPine Besylate 10 MG TABLET PO (07:25)
[2021-06-08] MEDS: carvediloL 25 MG TABLET PO ×2 (07:25→21:01)
--- NOTE | 2021-06-08 07:34 | HO.PM.IMPN ---
Subjective Subjective Date of Service: 06/08/21 Interval History: uncontrolled htn , tongue swelling Review of Systems denies any chest pain or sob or nausea or vomiting or fever or chills Has tongue swelling increasing Physical Exam Vital Signs: Vital Signs: Last Vital Signs Temp 97.7 F 06/08/21 04:00 Pulse 84 06/08/21 04:00 Resp 16 06/08/21 04:00 BP 158/75 H 06/08/21 04:00 Pulse Ox 97 06/08/21 04:00 BMI result Body Mass Index 22.8 Appearance: Alert.? Oriented X3.? not in distress.? Eyes: Pupils equal, round and reactive to light.?? ENT: tongue swelling increasing, but denies any shortness of breath or interval breathing at. Neck area no swelling, supple cvs: rrr, [id number] , no murmur res: clear to auscultation ,no rhonchii or wheezing abd: no rebound or guarding ,nt, bs present. ext pulses present , no cyanosis . neuro: axo3 , nonfocal. Objective Data Active Medications Acetaminophen (Acetaminophen Oral Liquid 650 Mg/20.3 Ml Solution) 650 mg PO Q4H PRN PRN Reason: Pain, Mild (Pain Scale 1-3) Last Admin: 06/06/21 17:21 Dose: 650 mg Documented by: ROSIE Amlodipine Besylate (Amlodipine Besylate 10 Mg Tablet) 10 mg PO DAILY [facility]; Protocol Last Admin: 06/07/21 11:58 Dose: 10 mg Documented by: KARYN Carvedilol (Carvedilol 25 Mg Tablet) 25 mg PO BID [facility]; Protocol Last Admin: 06/07/21 20:36 Dose: 25 mg Documented by: ERIK Heparin Sodium (Porcine) (Heparin Sodium,Porcine Flush 50 Units/5 Ml Syringe) [address] [facility] Last Admin: 06/08/21 02:56 Dose: 50 units Documented by: ERIK Hydralazine HCl (Hydralazine Hcl 20 Mg/Ml Vial) 10 mg IVPUSH Q4H PRN; Protocol PRN Reason: htn Last Admin: 06/07/21 07:45 Dose: 10 mg Documented by: BRADEN Hydralazine HCl (Hydralazine Hcl 25 Mg Tablet) 75 mg PO Q6H [facility] Last Admin: 06/08/21 02:56 Dose: 75 mg Documented by: ERIK Ampicillin Sodium/Sulbactam (Sodium 3 gm/ Sodium Chloride) 100 mls @ 200 mls/hr IV Q24H [facility] Last Infusion: 06/07/21 18:47 Dose: 0 mls/hr Documented by: BRADEN Lidocaine/Diphenhydr/Alum/Mg/Simeth (Mag&Al/Sim/Diphenhyd/Lidocaine 10 Ml Oral.Susp) 10 ml PO Q4H PRN; Protocol PRN Reason: mouth pain Omeprazole (Omeprazole 20 Mg/10 Ml Susp.Recon) 40 mg PO BID@0630,1630 [facility] Last Admin: 06/08/21 07:03 Dose: 40 mg Documented by: ERIK Ondansetron HCl (Ondansetron Hcl 4 Mg/2 Ml Vial) 4 mg IVPUSH Q8H PRN PRN Reason: Nausea and Vomiting Last Admin: 06/06/21 03:11 Dose: 4 mg Documented by: GARRY Sevelamer Carbonate (Sevelamer Carbonate Powder 800 Mg Powd.Pack) 800 mg PO TIDWM [facility] Last Admin: 06/07/21 18:14 Dose: 800 mg Documented by: BRADEN Sodium Bicarbonate (Sodium Bicarbonate 650 Mg Tablet) 650 mg PO QID [facility] Last Admin: 06/07/21 20:35 Dose: 650 mg Documented by: ERIK Labs CBC & Chem 7: 06/08/21 06:17 06/08/21 06:17 Labs: Laboratory Results - last 24 hr 06/07/21 06/07/21 06/08/21 08:21 08:21 06:17 MCV 83.3 85.8 MCH 28.1 28.4 MCHC 33.7 33.1 RDW 15.8 15.7 Plt Count 206 157 L MPV 10.3 10.1 Absolute Nucleated RBC 0.020 H 0.000 Nucleated RBC % (auto) 0.1 0.0 Anion Gap 21 H Estim Creat Clear Calc 13.8 Estimated GFR 9 Random Glucose 92 Calcium 8.9 06/08/21 06:17 MCV MCH MCHC RDW Plt Count MPV Absolute Nucleated RBC Nucleated RBC % (auto) Anion Gap 18 Estim Creat Clear Calc 11.0 Estimated GFR 7 Random Glucose 85 Calcium 8.2 L D Assessment and Plan (1) PRES (posterior reversible encephalopathy syndrome): Status: Acute (2) HTN (hypertension): Status: Acute (3) Angioneurotic edema, sequela: Status: Acute Assessment and Plan: 1. htn urgency Pres-improving d/w nephro and icu: blood pressure still uncontrolled-seen by speech-switched po- po amlodipine ,coreg , hydralzine po, iv hydralazine for backup. ? patient was in ICU briefly yesterday her blood pressure seems to be improvin. continue above medications. ? Vasotec was discontinued as per discussion with Nephrology since patient has tongue swelling and question of initialpossible Angioneurotic edema. 2.? ESRD: ?patient has PermCath site oozing last night and was stopped with pressure- currently PermCath site oozing is stopped. ? We called IR already to look at PermCath site again. ?seen by Nephrology, Since we are unable to perform PD , switch to hemodialysis HD TTS 3. tongue swelling/ injury: unclear etiology- thought to be possible Angioneurotic edema, sequela: hypercoagulability workup is pending and as well as serologies negative CTA of are head neck vessels now on p.o. feeds patient has significant tongue swelling today- question recurrentAngioneurotic edema, sequela- discussed in detail with ICU patient was started on IV Solu-Medrol, Benadryl IV given, also added FFP as per ICU just in case has she done C1 esterase deficiency. PT evaluation pending 4. hypokalemia:? Monitor BMP, replace as needed.? Morning labs are pending dvt prophylax:? Venodyne since patient had PermCath site oozing ?above management discussed with ICU attending Dr. Hayden in detail length, patient is transferred under ICU service. Quality Stroke Does the patient have a stroke diagnosis?: No VTE Prior VTE?: No VTE Risk Level:: Medical - moderate - high VTE Device Contraindication: N/A - Device Ordered VTE Drug Contraindication: N/A - Med Ordered
[2021-06-08] MEDS: methylPREDNISolone Sod Succ 125 MG/2 ML VIAL 60 MG IVPUSH ×3 (09:16→21:01)
[2021-06-08] MEDS: diphenhydrAMINE HCL 50 MG/ML VIAL 25 MG IVPUSH (09:16)
--- NOTE | 2021-06-08 11:09 | PM.PNNEP ---
Subjective Subjective Date of Service: 06/08/21 Interval history: BP better Tongue swelling Physical Exam Vital Signs: Vital Signs: Last Vital Signs Temp 97.9 F 06/08/21 07:50 Pulse 75 06/08/21 10:43 Resp 18 06/08/21 07:50 BP 140/60 H 06/08/21 10:43 Pulse Ox 98 06/08/21 10:43 BMI result Body Mass Index 22.8 Const: Other: ENT: Tongue is beter CVS: Normal heart rate and rhythm. Pulses normal. Normal S1 and S2 Respiratory: No respiratory distress. Breath sounds normal. No Wheezing. No rales Abdomen: Soft and nontender. No rigidity. No distention, patient has a peritoneal dialysis catheter in the abdomen Skin: Skin warm and dry. Extremities: Mild edema / anasarca Neuro: awake Objective Data Labs CBC & Chem 7: 06/08/21 06:17 06/08/21 06:17 Labs: Laboratory Results - last 24 hr 06/08/21 06/08/21 06:17 06:17 WBC 13.4 H RBC 3.10 L D Hgb 8.8 L D Hct 26.6 L D MCV 85.8 MCH 28.4 MCHC 33.1 RDW 15.7 Plt Count 157 L MPV 10.1 Absolute Nucleated RBC 0.000 Nucleated RBC % (auto) 0.0 Sodium 139 Potassium 3.2 L Chloride 103 Carbon Dioxide 21 L Anion Gap 18 BUN 33 H Creatinine 6.86 H* Estim Creat Clear Calc 11.0 Estimated GFR 7 Random Glucose 85 Calcium 8.2 L D Microbiology Microbiology Results: Microbiology 06/01/21 23:47 Blood - Venous Blood Culture - Final No growth after 5 days. 06/01/21 23:41 Blood - Venous Blood Culture - Final No growth after 5 days. 05/29/21 04:35 Blood - Venous Blood Culture - Final Staphylococcus epidermidis 05/29/21 04:35 Blood - Venous Blood Culture - Final Staphylococcus epidermidis Procedures Date of Service Date of Service: 06/08/21 Assessment & Plan Assessment and plan (1) ESRD (end stage renal disease): Status: Acute Assessment and Plan: ESRD on Peritoneal dialysis Severe Acidosis Anemia Since we are unable to perform PD , switch to hemodialysis HD TTS Severe anemia Transfuse PRBCs as indicated Epogen per protocol SEvere Uncontrolled HTN BP is bettter Avoid ACEi Discussed with Agree with steroids for tongue welling Time Spent With Patient Time: Total time spent is greater than 50% in coordination of care (as documented) at patient's floor/unit and/or counseling patient: Time with patient: 15 - 24 minutes Progress Note: Quality Stroke Does the patient have a stroke diagnosis?: No
--- NOTE | 2021-06-08 12:34 | MHC.CLN ---
F/U DIET= 2 GRAM SODIUM, LOW POTASSIUM, LOW PHOSPHORUS, PUREE WITH NECTAR THICK LIQUIDS. 1:1 ASSIST WITH FEEDING. THERAPEUTIC DIET FOR DIALYSIS NEEDS. PO LIMITED DUE TO TONGUE INJURY, WORKING WITH ENGINEERING SUPERVISOR. FOLLOW INTAKE, LABS, AND DIET PROGRESSION.
[2021-06-08] MEDS: Sevelamer Carbonate Powder 800 MG POWD.PACK PO ×2 (12:41→15:46)
[2021-06-08] MEDS: Ampicillin Sodium/Sulbactam Na 3 GM in 0.9 % Sodium Chloride 100 ML IV (12:42)
[2021-06-08 13:38] LABS: Troponin-I High Sensitivity 837.7 ng/L (<3.5-17.0)
--- NOTE | 2021-06-08 13:42 | MHC.SL.SWA ---
Speech Pathologist Impression: Risk of Aspiration Oralpharyngeal Dysphagia Risk of Aspiration Due to: Neurological Condition Hx of Recent Extubation Weak Voice Dysphasia Diet Status: No Change Liquid Consistency and Strategies for Safe Swallow: Liquid Intake Recommendation: [place] Thick Liquid Intake Strategies: Liquids by Teaspoon Only Solid Food Consistency: Dietary Recommendations: Pureed (NDD1) Additional Modifications to Solid Foods: Recommend continue current diet of PUREE, w/ NECTAR THICK liquids, w/full assistance and support during meals, close monitor of swallow, oral check, and providing only amount tolerated by Pt. Oral Medication Intake: Crushed with Puree Compensatory Strategies and Precautions to be Taken for Safe Swallow: Sitting Upright (90 deg) Double Swallow No Straw Liquids from Spoon Small Bites and Sips Rate of Ingestion Change Oral Check Supervision While Eating and Drinking for Safe Swallow: Total Assistance Swallowing Recommended Treatments: Compens. Strategy Educat. Recommendation for Speech: Inpatient Speech Therapy Frequency/Duration: M-F Aircraft Manager Clinican/Clinical Fellow: No Supervisory Statement: I have reviewed and agree with the student/clinical fellow's documentation: N/A Speech Language Pathologist: Kourtney Avila M.A., CCC-CNA
--- NOTE | 2021-06-08 13:56 | P.CNID_ITS ---
History of Present Illness Data of Consult Service Date: 06/08/21 Requesting physician: Kira Lawrence Primary Care Provider: Unknown Physician HPI Reason for consult: tongue swelling She presents found down with tongue laceration and swelling She was admitted and now is day 9 of antibiotics (Unasyn) She is still able to eat but has swelling Review of Systems Verdana 4l Review of Systems: Yes all other systems are reviewed and Verdana 4d are negative [facility] Family History Family history: reviewed and not pertinent Social History Social History Household Members: Unknown / Unable to assess Housing: House Unable to assess alcohol history related to: Unknown Alcohol intake: unknown Patient Tobacco Use Status: Tobacco use Unknown Advance Directives Date on File: 05/29/21 service: No Current occupational status: disabled Meds Allergies Allergy/AdvReac Type Severity Reaction Status Date / Time No Known Allergies Allergy Verified 05/29/21 00:36 Active Medications: Current Medications Acetaminophen (Acetaminophen Oral Liquid 650 Mg/20.3 Ml Solution) 650 mg PO Q4H PRN PRN Reason: Pain, Mild (Pain Scale 1-3) Last Admin: 06/06/21 17:21 Dose: 650 mg Documented by: Amlodipine Besylate (Amlodipine Besylate 10 Mg Tablet) 10 mg PO DAILY [facility]; Protocol Last Admin: 06/08/21 07:25 Dose: 10 mg Documented by: Carvedilol (Carvedilol 25 Mg Tablet) 25 mg PO BID [facility]; Protocol Last Admin: 06/08/21 07:25 Dose: 25 mg Documented by: Heparin Sodium (Porcine) (Heparin Sodium,Porcine Flush 50 Units/5 Ml Syringe) [facility] Last Admin: 06/08/21 07:26 Dose: 50 units Documented by: Hydralazine HCl (Hydralazine Hcl 20 Mg/Ml Vial) 10 mg IVPUSH Q4H PRN; Protocol PRN Reason: htn Last Admin: 06/07/21 07:45 Dose: 10 mg Documented by: Hydralazine HCl (Hydralazine Hcl 25 Mg Tablet) 75 mg PO Q6H [facility] Last Admin: 06/08/21 12:41 Dose: 75 mg Documented by: Ampicillin Sodium/Sulbactam (Sodium 3 gm/ Sodium Chloride) 100 mls @ 200 mls/hr IV Q24H [facility] Last Admin: 06/08/21 12:42 Dose: 200 mls/hr Documented by: Lidocaine/Diphenhydr/Alum/Mg/Simeth (Mag&Al/Sim/Diphenhyd/Lidocaine 10 Ml Oral.Susp) 10 ml PO Q4H PRN; Protocol PRN Reason: mouth pain Methylprednisolone Sodium Succinate (Methylprednisolone Sod Succ 125 Mg/2 Ml Vial) 60 mg IVPUSH Q6H [facility] Last Admin: 06/08/21 09:16 Dose: 60 mg Documented by: Omeprazole (Omeprazole 20 Mg/10 Ml Susp.Recon) 40 mg PO BID@0630,1630 [facility] Last Admin: 06/08/21 07:03 Dose: 40 mg Documented by: Ondansetron HCl (Ondansetron Hcl 4 Mg/2 Ml Vial) 4 mg IVPUSH Q8H PRN PRN Reason: Nausea and Vomiting Last Admin: 06/06/21 03:11 Dose: 4 mg Documented by: Sevelamer Carbonate (Sevelamer Carbonate Powder 800 Mg Powd.Pack) 800 mg PO TIDWM [facility] Last Admin: 06/08/21 12:41 Dose: 800 mg Documented by: Sodium Bicarbonate (Sodium Bicarbonate 650 Mg Tablet) 650 mg PO QID [facility] Last Admin: 06/08/21 12:41 Dose: 650 mg Documented by: Home Medications Medication Instructions Recorded Confirmed Last Taken Type clindamycin 1 1 applic TOPICAL 05/29/21 05/29/21 Unknown History %-benzoyl QAM peroxide 5 % topical gel tretinoin 0.025 % 1 applic TOPICAL 05/29/21 05/29/21 Unknown History topical cream BEDTIME Physical Exam Verdana 4l Vital Signs: Verdana 4d Verdana 4d Vital Signs: Verdana 4d Verdana 4Bd Last Vital Signs Verdana 4d Tire Adjuster New 4d Tire Adjuster New 4d Temp 97.9 F 06/08/21 12:00 Tire Adjuster New 4d Pulse 87 06/08/21 12:00 Tire Adjuster New 4d Resp 18 06/08/21 12:00 BP 143/87 H 06/08/21 12:00 Pulse Ox 98 06/08/21 10:43 BMI result Body Mass Index 22.8 Const: General: cooperative HENMT: Head: Yes normal to inspection Mouth: Normal oral and palatal mucosa present Eyes: Other: swollen tongue,no lymphadenopathy Pupils: Equal, round and reactive pupils present Resp: Effort & Inspection: normal respiratory effort Cardio: Rate: regular rate Rhythm: regular rhythm GI: Palpation (GI): Soft to palpation and nontender Neuro: Cranial nerves: Yes Equal, round and reactive pupils present Extrem: General: Yes normal to inspection Results Labs CBC & Chem 7: 06/12/21 08:54 06/13/21 04:29 Labs: Short CBC 06/08/21 Range/Units 06:17 WBC 13.4 H (4.8-10.8) X10*3/uL Hgb 8.8 L D (12.0-16.0) g/dl Hct 26.6 L D (37.0-47.0) % Plt Count 157 L (160-400) X10*3/uL BMP 06/08/21 06:17 Sodium 139 Potassium 3.2 L Chloride 103 Carbon Dioxide 21 L BUN 33 H Creatinine 6.86 H* Calcium 8.2 L D Microbiology Microbiology Results: Microbiology 06/01/21 23:47 Blood - Venous Blood Culture - Final No growth after 5 days. 06/01/21 23:41 Blood - Venous Blood Culture - Final No growth after 5 days. 05/29/21 04:35 Blood - Venous Blood Culture - Final Staphylococcus epidermidis 05/29/21 04:35 Blood - Venous Blood Culture - Final Staphylococcus epidermidis Assessment and Plan (1) PRES (posterior reversible encephalopathy syndrome): Status: Acute (2) Seizure disorder: Status: Acute (3) Encephalopathy: Status: Acute (4) Tongue infection: Status: Acute Now day 9 of infection She has slow healing ?immunodeficiency Plan Would check HIV test Would stop antibiotics tomorrow possibly but would add HIV test Have General Surgery see patient ?further to do ?debride tongue
[2021-06-08] MEDS: diphenhydrAMINE HCL 50 MG/ML VIAL IVPUSH (15:46)
[2021-06-09] VITALS: BP 160/101; PULSE 81; RESP 17; TEMP 36.4; O2SAT 96
[2021-06-09 04:00] VITALS: BP 171/113; PULSE 80; RESP 16; TEMP 36.7; O2SAT 98
[2021-06-09] MEDS: hydrALAZINE HCl 25 MG TABLET 75 MG PO ×3 (04:28→21:05)
[2021-06-09] MEDS: methylPREDNISolone Sod Succ 125 MG/2 ML VIAL 60 MG IVPUSH ×2 (04:28→21:04)
--- NOTE | 2021-06-09 07:43 | P.PNIM_ITS ---
Subjective Subjective Date of Service: 06/09/21 Interval History: tongue swelling , htn uncontrolled. Review of Systems Patient tongue is less swollen than yesterday could able to speak more today. Denies any shortness of breath or chest pain or nausea or vomiting. Physical Exam Vital Signs: Vital Signs: Last Vital Signs Temp 98.0 F 06/09/21 04:00 Pulse 80 06/09/21 04:00 Resp 16 06/09/21 04:00 BP 171/113 H 06/09/21 04:00 Pulse Ox 98 06/09/21 04:00 BMI result Body Mass Index 22.8 Appearance: Alert.? Oriented X3.? not in distress.? Eyes: Pupils equal, round and reactive to light.?? ENT:? tongue swelling increasing, but denies any shortness of breath or interval breathing at. ? Neck area no swelling, supple cvs: rrr, [id number] , no murmur res: clear to auscultation ,no rhonchii or wheezing abd: no rebound or guarding ,nt, bs present. ext pulses present , no cyanosis . neuro: axo3 , nonfocal. Objective Data Active Medications Acetaminophen (Acetaminophen Oral Liquid 650 Mg/20.3 Ml Solution) 650 mg PO Q4H PRN PRN Reason: Pain, Mild (Pain Scale 1-3) Last Admin: 06/06/21 17:21 Dose: 650 mg Documented by: ROSIE Amlodipine Besylate (Amlodipine Besylate 10 Mg Tablet) 10 mg PO DAILY [facility]; Protocol Last Admin: 06/08/21 07:25 Dose: 10 mg Documented by: BRADEN Carvedilol (Carvedilol 25 Mg Tablet) 25 mg PO BID [facility]; Protocol Last Admin: 06/08/21 21:01 Dose: 25 mg Documented by: GREG Diphenhydramine HCl (Diphenhydramine Hcl 50 Mg/Ml Vial) 25 mg IVPUSH Q6H PRN PRN Reason: Angioedema Heparin Sodium (Porcine) (Heparin Sodium,Porcine Flush 50 Units/5 Ml Syringe) 50 units IVFLUSH QSHIFT [facility] Last Admin: 06/08/21 22:46 Dose: 50 units Documented by: GREG Hydralazine HCl (Hydralazine Hcl 20 Mg/Ml Vial) 10 mg IVPUSH Q4H PRN; Protocol PRN Reason: htn Last Admin: 06/07/21 07:45 Dose: 10 mg Documented by: BRADEN Hydralazine HCl (Hydralazine Hcl 25 Mg Tablet) 75 mg PO Q6H [facility] Last Admin: 06/09/21 04:28 Dose: 75 mg Documented by: GREG Ampicillin Sodium/Sulbactam (Sodium 3 gm/ Sodium Chloride) 100 mls @ 200 mls/hr IV Q24H [facility] Last Infusion: 06/08/21 14:12 Dose: 0 mls/hr Documented by: BRADEN Lidocaine/Diphenhydr/Alum/Mg/Simeth (Mag&Al/Sim/Diphenhyd/Lidocaine 10 Ml Oral.Susp) 10 ml PO Q4H PRN; Protocol PRN Reason: mouth pain Methylprednisolone Sodium Succinate (Methylprednisolone Sod Succ 125 Mg/2 Ml Vial) 60 mg IVPUSH Q6H [facility] Last Admin: 06/09/21 04:28 Dose: 60 mg Documented by: GREG Omeprazole (Omeprazole 20 Mg/10 Ml Susp.Recon) 40 mg PO BID@0630,1630 [facility] Last Admin: 06/09/21 04:28 Dose: 40 mg Documented by: GREG Ondansetron HCl (Ondansetron Hcl 4 Mg/2 Ml Vial) 4 mg IVPUSH Q8H PRN PRN Reason: Nausea and Vomiting Last Admin: 06/06/21 03:11 Dose: 4 mg Documented by: GARRY Sevelamer Carbonate (Sevelamer Carbonate Powder 800 Mg Powd.Pack) 800 mg PO T IDWM [facility] Last Admin: 06/08/21 15:46 Dose: 800 mg Documented by: BRADEN Sodium Bicarbonate (Sodium Bicarbonate 650 Mg Tablet) 650 mg PO QID [facility] Last Admin: 06/08/21 21:02 Dose: 650 mg Documented by: GREG Labs CBC & Chem 7: 06/09/21 08:21 06/09/21 08:21 Labs: Laboratory Results - last 24 hr 05/29/21 06/07/21 04:35 06:20 Troponin I High Sens 837.7 H* Blood Type O Positive Antibody Screen NEGATIVE Assessment and Plan (1) PRES (posterior reversible encephalopathy syndrome): Status: Acute (2) Angioneurotic edema, sequela: Status: Acute (3) HTN (hypertension): Status: Acute Assessment and Plan: 1. htn urgency Pres-improving d/w nephro and icu: blood pressure still uncontrolled-seen by speech-switched po- po amlodipine ,coreg , hydralzine po,may add iv hydralazine for backup if needed. ? patient was in ICU briefly yesterday her blood pressure? seems to be improvin on 05/07/22. continue above medications. immonlogy test seems neg other serology as adjusted by ICU- Antithrombin 3, protein C and S, factor 5 laden added pending ? Vasotec was discontinued as per discussion with Nephrology since patient has tongue swelling and question of initialpossible Angioneurotic edema. ? 2.? ESRD: ?patient has PermCath site oozing last night and was stopped with pressure- currently PermCath site oozing is stopped. ? We called IR already to look at PermCath site again. ?seen by Nephrology, Since we are unable to perform PD , switch to hemodialysis HD TTS 3. tongue swelling/ injury: unclear etiology- thought to be possible Angioneurotic edema, sequela: hypercoagulability workup is pending and as well as serologies negative CTA of are head neck vessels ?now on p.o. feeds ?patient has significant tongue swelling today- question recurrentAngioneurotic edema, sequela- on IV Solu med and Benadryl as well as FFP - patient on swelling seems to be improving, discussed with ICU and Solu-Medrol and Benadryl dosing adjusted. oob ?PT evaluation -may need acute rehab 4. hypokalemia:? Monitor BMP, replace as needed.? Morning labs are pending dvt prophylax:? Venodyne since patient had PermCath site oozing ?above management discussed with ICU attending Dr. Hayden in detail length, patient is transferred under ICU service. Quality Stroke Does the patient have a stroke diagnosis?: No VTE Prior VTE?: No VTE Risk Level:: Medical - moderate - high VTE Device Contraindication: N/A - Device Ordered VTE Drug Contraindication: N/A - Med Ordered
[2021-06-09 08:33] LABS: Hematocrit 26.9 % (37.0-47.0); Mean Corpuscular HGB Conc 33.5 g/dl (31.0-35.0); Mean Corpuscular Hemoglobin 28.4 pg (27.0-33.0); Mean Corpuscular Volume 84.9 fL (80.0-98.0); Mean Platelet Volume 10.3 fL (9.4-12.3); Platelet Count 199 X10*3/uL (160-400); Red Blood Count 3.17 X10*6/uL (4.20-5.50); Red Cell Distribution Width 15.1 % (11.0-16.0)
[2021-06-09 08:56] LABS: Anion Gap 17 (12-20); Blood Urea Nitrogen 20 mg/dL (9-16); Calcium 8.8 mg/dL (8.4-10.2); Carbon Dioxide 24 mmol/L (22-29); Chloride 101 mmol/L (96-108); Creatinine Clr Calc Pharmacy 17.6; Estimated Glomerular Filt Rate 12; Glucose Random 134 mg/dL (60-115); Potassium 3.4 mmol/L (3.3-5.1); Sodium 139 mmol/L (135-145)
[2021-06-09 10:51] VITALS: BP 165/106; PULSE 77; RESP 18; TEMP 36.9; O2SAT 100
[2021-06-09] MEDS: amLODIPine Besylate 10 MG TABLET PO (10:53)
[2021-06-09] MEDS: diphenhydrAMINE HCL 50 MG/ML VIAL 25 MG IVPUSH ×2 (12:38→21:04)
[2021-06-09] MEDS: Sevelamer Carbonate Powder 800 MG POWD.PACK PO ×2 (12:38→17:28)
[2021-06-09] MEDS: Sodium Bicarbonate 650 MG TABLET PO ×3 (12:38→21:05)
--- NOTE | 2021-06-09 12:42 | PM.PNNEP ---
Subjective Subjective Date of Service: 06/10/21 Interval history: tongue swelling , htn uncontrolled. Physical Exam Vital Signs: Vital Signs: Last Vital Signs Temp 98.4 F 06/09/21 10:51 Pulse 77 06/09/21 10:51 Resp 18 06/09/21 10:51 BP 165/106 H 06/09/21 10:51 Pulse Ox 100 06/09/21 10:51 BMI result Body Mass Index 22.8 Const: Other: ENT: Tongue is beter CVS: Normal heart rate and rhythm. Pulses normal. Normal S1 and S2 Respiratory: No respiratory distress. Breath sounds normal. No Wheezing. No rales Abdomen: Soft and nontender. No rigidity. No distention, patient has a peritoneal dialysis catheter in the abdomen Skin: Skin warm and dry. Extremities: Mild edema / anasarca Neuro: awake Neuro: Other: Sedated and intubated. When I open her eyes, her pupils were about 3 mm round reactive. There was little bit of roving motions. There was little bit of grimace with pain. Deep tendon reflexes were absent with flexor plantars. Tongue was severely swollen. Exam was limited. Objective Data Labs CBC & Chem 7: 06/09/21 08:21 06/09/21 08:21 Labs: Laboratory Results - last 24 hr 05/29/21 06/09/21 06/09/21 04:35 08:21 08:21 WBC 19.0 H RBC 3.17 L Hgb 9.0 L Hct 26.9 L MCV 84.9 MCH 28.4 MCHC 33.5 RDW 15.1 Plt Count 199 D MPV 10.3 Absolute Nucleated RBC 0.000 Nucleated RBC % (auto) 0.0 Sodium 139 Potassium 3.4 Chloride 101 Carbon Dioxide 24 Anion Gap 17 BUN 20 H Creatinine 4.27 H* Estim Creat Clear Calc 17.6 Estimated GFR 12 Random Glucose 134 H Calcium 8.8 D Troponin I High Sens 837.7 H* Microbiology Microbiology Results: Microbiology 06/01/21 23:47 Blood - Venous Blood Culture - Final No growth after 5 days. 06/01/21 23:41 Blood - Venous Blood Culture - Final No growth after 5 days. 05/29/21 04:35 Blood - Venous Blood Culture - Final Staphylococcus epidermidis 05/29/21 04:35 Blood - Venous Blood Culture - Final Staphylococcus epidermidis Procedures Date of Service Date of Service: 06/09/21 Assessment & Plan Assessment and plan (1) ESRD (end stage renal disease): Status: Acute Assessment and Plan: ESRD on Peritoneal dialysis Severe Acidosis Anemia Since we are unable to perform PD , switch to hemodialysis HD TTS She will resume CCPD upon discharge Severe anemia Transfuse PRBCs as indicated Epogen per protocol Uncontrolled HTN Meds noted Can add Spironolactone Time Spent With Patient Time: Total time spent is greater than 50% in coordination of care (as documented) at patient's floor/unit and/or counseling patient: Time with patient: 15 - 24 minutes Progress Note: Quality Stroke Does the patient have a stroke diagnosis?: No
[2021-06-09] MEDS: Ampicillin Sodium/Sulbactam Na 3 GM in 0.9 % Sodium Chloride 100 ML IV (14:59)
[2021-06-09 15:03] VITALS: BP 168/105; PULSE 85; RESP 18; TEMP 36.2; O2SAT 98
[2021-06-09] MEDS: Heparin Sodium,Porcine Flush 50 UNITS/5 ML SYRINGE IVFLUSH ×4 (17:27→22:44)
[2021-06-09 20:00] VITALS: BP 160/100; PULSE 85; RESP 18; TEMP 36.2; O2SAT 98
[2021-06-09] MEDS: carvediloL 25 MG TABLET PO (21:05)
[2021-06-10] VITALS: BP 135/83; PULSE 84; RESP 17; TEMP 36.3; O2SAT 97
[2021-06-10 04:00] VITALS: BP 149/83; PULSE 80; RESP 17; TEMP 36.3; O2SAT 97
[2021-06-10] MEDS: hydrALAZINE HCl 25 MG TABLET 75 MG PO ×2 (04:39→09:42)
[2021-06-10] MEDS: diphenhydrAMINE HCL 50 MG/ML VIAL 25 MG IVPUSH (04:39)
[2021-06-10 06:00] VITALS: BMI 26.0
--- NOTE | 2021-06-10 07:40 | HO.PM.IMPN ---
Subjective Subjective Date of Service: 06/10/21 Interval History: Uncontrolled hypertension, tongue edema Review of Systems tongue swelling seems improving denies any chest pain or shortness breath or abdominal pain or nausea or vomiting Physical Exam Vital Signs: Vital Signs: Last Vital Signs Temp 97.4 F 06/10/21 04:00 Pulse 80 06/10/21 04:00 Resp 17 06/10/21 04:00 BP 149/83 H 06/10/21 04:00 Pulse Ox 97 06/10/21 04:00 BMI result Body Mass Index 26.0 Appearance: Alert.? Oriented X3.? not in distress.? Eyes: Pupils equal, round and reactive to light.?? ENT:? tongue swelling improving, but denies any shortness of breath or interval breathing at. ? Neck area no swelling, supple cvs: rrr, [id number] , no murmur res: clear to auscultation ,no rhonchii or wheezing abd: no rebound or guarding ,nt, bs present. ext pulses present , no cyanosis . neuro: axo3 , nonfocal. Objective Data Active Medications Acetaminophen (Acetaminophen Oral Liquid 650 Mg/20.3 Ml Solution) 650 mg PO Q4H PRN PRN Reason: Pain, Mild (Pain Scale 1-3) Last Admin: 06/06/21 17:21 Dose: 650 mg Documented by: ROSIE Amlodipine Besylate (Amlodipine Besylate 10 Mg Tablet) 10 mg PO DAILY [facility]; Protocol Last Admin: 06/09/21 10:53 Dose: 10 mg Documented by: HARI Carvedilol (Carvedilol 25 Mg Tablet) 25 mg PO BID [facility]; Protocol Last Admin: 06/09/21 21:05 Dose: 25 mg Documented by: GREG Diphenhydramine HCl (Diphenhydramine Hcl 50 Mg/Ml Vial) 25 mg IVPUSH Q8H [facility] Last Admin: 06/10/21 04:39 Dose: 25 mg Documented by: GREG Heparin Sodium (Porcine) (Heparin Sodium,Porcine Flush 50 Units/5 Ml Syringe) 50 units IVFLUSH QSHIFT [facility] Last Admin: 06/09/21 22:42 Dose: 50 units Documented by: GREG Hydralazine HCl (Hydralazine Hcl 20 Mg/Ml Vial) 10 mg IVPUSH Q4H PRN; Protocol PRN Reason: htn Last Admin: 06/07/21 07:45 Dose: 10 mg Documented by: BRADEN Hydralazine HCl (Hydralazine Hcl 25 Mg Tablet) 75 mg PO Q6H [facility] Last Admin: 06/10/21 04:39 Dose: 75 mg Documented by: GREG Ampicillin Sodium/Sulbactam (Sodium 3 gm/ Sodium Chloride) 100 mls @ 200 mls/hr IV Q24H [facility] Last Infusion: 06/09/21 15:56 Dose: 0 mls/hr Documented by: HARI Lidocaine/Diphenhydr/Alum/Mg/Simeth (Mag&Al/Sim/Diphenhyd/Lidocaine 10 Ml Oral.Susp) 10 ml PO Q4H PRN; Protocol PRN Reason: mouth pain Methylprednisolone Sodium Succinate (Methylprednisolone Sod Succ 125 Mg/2 Ml Vial) 60 mg IVPUSH Q12H [facility] Last Admin: 06/09/21 21:04 Dose: 60 mg Documented by: GREG Omeprazole (Omeprazole 20 Mg/10 Ml Susp.Recon) 40 mg PO BID@0630,1630 [facility] Last Admin: 06/10/21 04:39 Dose: 40 mg Documented by: GREG Ondansetron HCl (Ondansetron Hcl 4 Mg/2 Ml Vial) 4 mg IVPUSH Q8H PRN PRN Reason: Nausea and Vomiting Last Admin: 06/06/21 03:11 Dose: 4 mg Documented by: GARRY Sevelamer Carbonate (Sevelamer Carbonate Powder 800 Mg Powd.Pack) 800 mg PO TIDWM [facility] Last Admin: 06/09/21 17:28 Dose: 800 mg Documented by: HARI Sodium Bicarbonate (Sodium Bicarbonate 650 Mg Tablet) 650 mg PO QID [facility] Last Admin: 06/09/21 21:05 Dose: 650 mg Documented by: GREG Labs CBC & Chem 7: 06/09/21 08:21 06/09/21 08:21 Labs: Laboratory Results - last 24 hr 06/09/21 06/09/21 08:21 08:21 MCV 84.9 MCH 28.4 MCHC 33.5 RDW 15.1 Plt Count 199 D MPV 10.3 Absolute Nucleated RBC 0.000 Nucleated RBC % (auto) 0.0 Anion Gap 17 Estim Creat Clear Calc 17.6 Estimated GFR 12 Random Glucose 134 H Calcium 8.8 D Assessment and Plan (1) HTN (hypertension): Status: Acute (2) Angioneurotic edema, sequela: Status: Acute Assessment and Plan: 1. htn urgency: bp flactuating 140-160 range Pres-improving d/w nephro and icu: blood pressure still uncontrolled-seen by speech-switched po- po amlodipine ,coreg , adjusted hydralzine po 100 tid,may add iv hydralazine for backup if needed. ? patient was in ICU briefly yesterday her blood pressure? seems to be improvin on 05/07/22. continue above medications. immonlogy test seems neg other serology as adjusted by ICU-? Antithrombin 3, protein C and S, factor 5 laden added pending ? Vasotec was discontinued as per discussion with Nephrology since patient has tongue swelling and question of initialpossible Angioneurotic edema. ? 2.? ESRD: ?patient has PermCath site oozing last night and was stopped with pressure- currently PermCath site oozing is stopped. ? We called IR already to look at PermCath site again. ?seen by Nephrology, Since we are unable to perform PD , switch to hemodialysis HD TTS 3. tongue swelling/ injury: unclear etiology- thought to be possible Angioneurotic edema, sequela: hypercoagulability workup is pending and as well as serologies negative CTA of are head neck vessels ?now on p.o. feeds ?patient has significant tongue swelling today- question recurrentAngioneurotic edema, sequela-? on IV Solu med and Benadryl as well as FFP - patient on swelling seems to be improving, discussed with switched to poprednisone and Benadryl dosing adjusted. oob ?PT evaluation -may need acute rehab 4. hypokalemia:? Monitor BMP, replace as needed.? Morning labs are pending dvt prophylax:? Venodyne since patient had PermCath site oozing ? Quality Stroke Does the patient have a stroke diagnosis?: No VTE Prior VTE?: No VTE Risk Level:: Medical - moderate - high VTE Device Contraindication: N/A - Device Ordered VTE Drug Contraindication: N/A - Med Ordered
[2021-06-10 07:58] VITALS: BP 161/106; PULSE 77; RESP 18; TEMP 36.4; O2SAT 98
[2021-06-10] MEDS: methylPREDNISolone Sod Succ 125 MG/2 ML VIAL 60 MG IVPUSH (09:41)
[2021-06-10] MEDS: Sevelamer Carbonate Powder 800 MG POWD.PACK PO ×3 (09:42→15:53)
[2021-06-10] MEDS: Heparin Sodium,Porcine Flush 50 UNITS/5 ML SYRINGE IVFLUSH ×4 (09:42→22:41)
[2021-06-10] MEDS: Sodium Bicarbonate 650 MG TABLET PO ×4 (09:42→20:18)
[2021-06-10] MEDS: carvediloL 25 MG TABLET PO ×2 (09:43→20:18)
[2021-06-10] MEDS: amLODIPine Besylate 10 MG TABLET PO (09:43)
[2021-06-10 11:49] VITALS: BP 155/101; PULSE 79; RESP 18; TEMP 36.4; O2SAT 96
[2021-06-10] MEDS: diphenhydrAMINE HCL 25 MG TABLET PO ×2 (12:31→20:18)
[2021-06-10] MEDS: predniSONE 20 MG TABLET 40 MG PO (12:31)
[2021-06-10 15:47] VITALS: BP 153/101; PULSE 78; RESP 18; TEMP 36.9; O2SAT 97
[2021-06-10] MEDS: hydrALAZINE HCl 50 MG TABLET 100 MG PO ×2 (15:53→20:18)
--- NOTE | 2021-06-10 17:11 | P.PNNP_ITS ---
Subjective Subjective Date of Service: 06/28/21 Interval history: Uncontrolled hypertension, tongue edema Better today Physical Exam Verdana 4l Vital Signs: Verdana 4d Verdana 4d Vital Signs: Verdana 4d Verdana 4Bd Last Vital Signs Verdana 4d [employer] New 4d [employer] New 4d Temp 98.4 F 06/10/21 15:47 [employer] New 4d Pulse 78 06/10/21 15:47 [employer] New 4d Resp 18 06/10/21 15:47 BP 153/101 H 06/10/21 15:47 Pulse Ox 97 06/10/21 15:47 BMI result Body Mass Index 26.0 Const: Other: ENT: Tongue is beter CVS: Normal heart rate and rhythm. Pulses normal. Normal S1 and S2 Respiratory: No respiratory distress. Breath sounds normal. No Wheezing. No rales Abdomen: Soft and nontender. No rigidity. No distention, patient has a peritoneal dialysis catheter in the abdomen Skin: Skin warm and dry. Extremities: Mild edema / anasarca Neuro: awake Neuro: Other: Sedated and intubated. When I open her eyes, her pupils were about 3 mm round reactive. There was little bit of roving motions. There was little bit of grimace with pain. Deep tendon reflexes were absent with flexor plantars. Tongue was severely swollen. Exam was limited. Objective Data Labs CBC & Chem 7: 06/12/21 08:54 06/13/21 04:29 Microbiology Microbiology Results: Microbiology 06/01/21 23:47 Blood - Venous Blood Culture - Final No growth after 5 days. 06/01/21 23:41 Blood - Venous Blood Culture - Final No growth after 5 days. 05/29/21 04:35 Blood - Venous Blood Culture - Final Staphylococcus epidermidis 05/29/21 04:35 Blood - Venous Blood Culture - Final Staphylococcus epidermidis Procedures Date of Service Date of Service: 06/10/21 Assessment & Plan Assessment and plan (1) ESRD (end stage renal disease): Status: Acute Plan ESRD on Peritoneal dialysis Severe Acidosis Anemia Since we are unable to perform PD , switch to hemodialysis HD TTS She will resume CCPD upon discharge Severe anemia Transfuse PRBCs as indicated Epogen per protocol Uncontrolled HTN Meds noted Spironolactone as needed Time Spent With Patient Time: Total time spent is greater than 50% in coordination of care (as documented) at patient's floor/unit and/or counseling patient: Time with patient: 15 - 24 minutes Progress Note: Quality Stroke Does the patient have a stroke diagnosis?: No
[2021-06-11] VITALS (7 sets, daily range): BP systolic 156–180; BP diastolic 90–115; PULSE 66–80; RESP 18–20; TEMP 36.2–37.1; O2SAT 97–100; BMI 25.7
[2021-06-11 04:59] LABS: HIV AB/AG Nonreactive (Nonreactive); HIV Num 1 0.09 S/CO (0.00-0.99)
[2021-06-11 07:39] LABS: Anion Gap 16 (12-20); Blood Urea Nitrogen 36 mg/dL (9-16); Carbon Dioxide 26 mmol/L (22-29); Chloride 103 mmol/L (96-108); Creatinine Clr Calc Pharmacy 10.5; Estimated Glomerular Filt Rate 6; Glucose Random 129 mg/dL (60-115); Potassium 3.2 mmol/L (3.3-5.1); Sodium 142 mmol/L (135-145)
[2021-06-11] MEDS: carvediloL 25 MG TABLET PO ×2 (08:14→20:21)
[2021-06-11] MEDS: amLODIPine Besylate 10 MG TABLET PO (08:14)
[2021-06-11] MEDS: Sevelamer Carbonate Powder 800 MG POWD.PACK PO ×3 (08:14→17:08)
[2021-06-11] MEDS: diphenhydrAMINE HCL 25 MG TABLET PO ×2 (08:15→20:21)
[2021-06-11] MEDS: hydrALAZINE HCl 50 MG TABLET 100 MG PO ×3 (08:15→20:21)
[2021-06-11] MEDS: predniSONE 20 MG TABLET 40 MG PO (08:15)
[2021-06-11] MEDS: Sodium Bicarbonate 650 MG TABLET PO ×4 (08:15→20:22)
[2021-06-11] MEDS: cloNIDine 0.2 MG PATCH.TDWK TRANSDERMA (09:23)
[2021-06-11 09:41] LABS: Anti-Thrombin III Activity 106 % normal (80-135)
--- NOTE | 2021-06-11 11:50 | P.DS_ITS ---
DS: Providers Provider Date of Service: 06/11/21 Date of admission: 05/29/21 16:08 Primary care physician: Unknown Physician Consults: 05/30/21 11:20 Consult to Neurology Routine Consulting Provider: Diana Barber Reason for consultation: AMS, ?PRES Has provider been notified: Yes 06/07/21 07:27 Consult to Critical Care Stat Consulting Provider: Rena Hayden Reason for consultation: htn urgency, permacath site bleedin 06/07/21 17:40 Consult to Infectious Diseases Routine Consulting Provider: Jessica Andersen Reason for consultation: leucocytosis unclear etiology Has provider been notified: No DS: Diagnosis Discharge Diagnosis (1) ESRD (end stage renal disease): Status: Acute DS: Summary Hospital Course Hospital Course: HPI: 41-year-old woman with end-stage renal failure on peritoneal dialysis who presented with massive tongue swelling and altered mental status.? It sounds to me like this is not Kenny?s angina, but I?m not sure what the cause of the p roblem is. One possibility is that the patient had an anaphylactoid reaction to something, following which the patient somehow wound up on the floor unable to move.? Given that she was unable to dialyze, her renal indices were ifrah and she became uremic. In the ED, the patient was very hypertensive.? That could be the etiology of her PRES.? Or maybe the PRES came first, resulting in her presentation to the ED.? Either way, treatment of PRES is supportive.? Her BP is well controlled now.? Will have neurology see her tomorrow. As far as her tongue goes, we have her on Zosyn, clindamycin, and vancomycin.? Assuming that Dr. Nicholas is correct, her tongue will heal, the necrotic parts will slough, and her tongue will gradually retract into her mouth.? In the meantime, the tongue needs to be kept moist to prevent further damage.? We will keep her sedated on the ventilator until it is safe to extubate. In terms of her dialysis, we will need to place a temp dialysis catheter or permcath to get her dialyzed.? Will d/w renal and Dr. Calderon tomorrow. Hospital course:patient was admitted for acute airway compromise and got intubated probably related to tongue swelling, possible angioneurotic edema, sequela : also treated for Pres- due to uncontrolled hypertension: Patient's initially w as on IV anti hypertensive meds in ICU Vasotec, tongue swelling treated withIV steroids and antibiotics Subsequently extubated- subsequently switched to p.o. medications, patient hospital course had another episode of tongue swelling-treated with steroids and Benadryl seems to be improving. Patient was given limited supply of steroids and Benadryl upon discharge. also will give EpiPen. PRES/ uncontrolled hypertension, patient was started on Coreg, amlodipine, hydralazine, clonidine patch blood pressure still fluctuating between 140-160 range but patient seems to be improving discussed with Nephrology patient will go to rehab with above medications. End-stage renal disease on dialysis continue dialysis outpatient as per Nephrology. Monitor renal function, electrolytes and CBC out patiently Time Spent with Patient Time attestation: Total time spent providing and/or coordinating discharge services: Discharge coordination time: Greater than 30 minutes Quality: Stroke Does the patient have a stroke diagnosis?: No Physical Exam Vital Signs: Vital Signs: Last Vital Signs Temp 97.6 F 06/11/21 07:46 Pulse 69 06/11/21 07:46 Resp 18 06/11/21 07:46 BP 170/115 H 06/11/21 08:21 Pulse Ox 99 06/11/21 07:46 BMI result Body Mass Index 25.7 Appearance: Alert.? Oriented X3.? not in distress.? Eyes: Pupils equal, round and reactive to light.?? ENT:? tongue swelling improving, but denies any shortness of breath or interval breathing at. ? Neck area no swelling, supple cvs: rrr, [id number] , no murmur res: clear to auscultation ,no rhonchii or wheezing abd: no rebound or guarding ,nt, bs present. ext pulses present , no cyanosis . neuro: axo3 , nonfocal. DS: Data Data Completed and Pending Labs on day of discharge: Laboratory Results - last 24 hr 06/08/21 06/09/21 06/11/21 14:53 12:35 06:27 Antithrombin III Activ 106 Sodium 142 Potassium 3.2 L Chloride 103 Carbon Dioxide 26 Anion Gap 16 BUN 36 H D Creatinine 7.72 H* Estim Creat Clear Calc 10.5 Estimated GFR 6 Random Glucose 129 H Calcium 8.0 L D HIV 1&2 Ab/P24 Ag 4thGn Nonreactive Additional Comments Additional comments: CT/CT angio neck IMPRESSION: 1. The common and internal carotid arteries are patent bilaterally. The carotid bifurcations appear normal. The branches of the external carotid artery appear to opacify normally, bilaterally. ? 2. The left vertebral artery is thinner compared to the right but has uniform caliber throughout its cervical course. It appears to end primarily in the PICA. ? 3. There are sequelae of a right lamina papyracea fracture and blood and fluid levels are noted in the right maxillary and right sphenoid sinuses. US/US venous duplex UE LT IMPRESSION: No DVT demonstrated in the left upper extremity. Superficial venous thrombosis suspected within the distal cephalic vein. Discharge Plan Discharge Discharge Diagnosis: Angioneurotic edema, ESRD on dialysis, uncontrolled hypertension Referrals: Physician,Unknown J [Primary Care Provider] - 1 Week Discharge Medications: New sevelamer carbonate 0.8 gram Powder In Packet 800 mg PO TIDWM Qty: 90 RF: 0 diphenhydramine HCl [Allergy Relief(diphenhydramin)] 25 mg Tablet 25 mg PO BID Qty: 10 RF: 0 prednisone 20 mg tablet 40 mg PO DAILY Qty: 8 RF: 0 epinephrine [EpiPen] 0.3 mg/0.3 mL auto-injector 0.3 mg IM Q4H PRN (Reason: hypersensitivity reaction) Qty: 2 RF: 0 sodium bicarbonate 650 mg Tablet 650 mg PO TID Qty: 90 RF: 0 amlodipine 10 mg Tablet 10 mg PO DAILY Qty: 30 RF: 0 carvedilol 25 mg Tablet 25 mg PO BID Qty: 60 RF: 0 hydralazine 50 mg Tablet 100 mg PO TID Qty: 180 RF: 0 Continued tretinoin 0.025 % cream 1 applic topical BEDTIME RF: 0 clindamycin-benzoyl peroxide 1-5 % gel 1 applic topical QAM RF: 0 Discontinued losartan 100 mg tablet 50 mg PO BID RF: 0 Diet: advance to usual diet Activity on Discharge: As tolerated Care Plan Goals: patient was admitted for acute airway compromise and got intubated probably related to tongue swelling, possible angioneurotic edema, sequela : also treated for Pres- due to uncontrolled hypertension: Patient's initially was on IV anti hypertensive meds in ICU Vasotec, tongue swelling treated withIV steroids and antibiotics Subsequently extubated- subsequently switched to p.o. medications, patient hospital course had another episode of tongue swelling-treated with steroids and Benadryl seems to be improving. Patient was given limited supply of steroids and Benadryl upon discharge. also will give EpiPen. PRES/ uncontrolled hypertension, patient was started on Coreg, amlodipine, hydralazine, clonidine patch blood pressure still fluctuating between 140-160 range but patient seems to be improving discussed with Nephrology patient will go to rehab with above medications. End-stage renal disease on dialysis continue dialysis outpatient as per Nephrology. Monitor renal function, electrolytes and CBC out patiently Health Concerns: as above. Plan of Treatment: As above.
--- NOTE | 2021-06-11 12:33 | HO.PM.IMPN ---
Subjective Subjective Date of Service: 06/11/21 Interval History: Uncontrolled hypertension, tongue edema Review of Systems tongue swelling seems improving ?denies any chest pain or shortness breath or abdominal pain or nausea or vomiting Physical Exam Vital Signs: Vital Signs: Last Vital Signs Temp 98.7 F 06/11/21 12:00 Pulse 75 06/11/21 12:00 Resp 18 06/11/21 12:00 BP 161/112 H 06/11/21 12:00 Pulse Ox 98 06/11/21 12:00 BMI result Body Mass Index 25.7 Appearance: Alert.? Oriented X3.? not in distress.? Eyes: Pupils equal, round and reactive to light.?? ENT:? tongue swelling improving, but denies any shortness of breath or interval breathing at. ? Neck area no swelling, supple cvs: rrr, [id number] , no murmur res: clear to auscultation ,no rhonchii or wheezing abd: no rebound or guarding ,nt, bs present. ext pulses present , no cyanosis . neuro: axo3 , nonfocal. Objective Data Active Medications Acetaminophen (Acetaminophen Oral Liquid 650 Mg/20.3 Ml Solution) 650 mg PO Q4H PRN PRN Reason: Pain, Mild (Pain Scale 1-3) Last Admin: 06/06/21 17:21 Dose: 650 mg Documented by: ROSIE Amlodipine Besylate (Amlodipine Besylate 10 Mg Tablet) 10 mg PO DAILY [facility]; Protocol Last Admin: 06/11/21 08:14 Dose: 10 mg Documented by: ARUN Carvedilol (Carvedilol 25 Mg Tablet) 25 mg PO BID [facility]; Protocol Last Admin: 06/11/21 08:14 Dose: 25 mg Documented by: ARUN Diphenhydramine HCl (Diphenhydramine Hcl 25 Mg Tablet) 25 mg PO BID [facility] Last Admin: 06/11/21 08:15 Dose: 25 mg Documented by: ARUN Heparin Sodium (Porcine) (Heparin Sodium,Porcine Flush 50 Units/5 Ml Syringe) 50 units IVFLUSH QSHIFT [facility] Last Admin: 06/11/21 08:23 Dose: Not Given Documented by: ARUN Non-Admin Reason: no flushing dialysis cath Hydralazine HCl (Hydralazine Hcl 20 Mg/Ml Vial) 10 mg IVPUSH Q4H PRN; Protocol PRN Reason: htn Last Admin: 06/07/21 07:45 Dose: 10 mg Documented by: BRADEN Hydralazine HCl (Hydralazine Hcl 50 Mg Tablet) 100 mg PO TID [facility] Last Admin: 06/11/21 08:15 Dose: 100 mg Documented by: ARUN Lidocaine/Diphenhydr/Alum/Mg/Simeth (Mag&Al/Sim/Diphenhyd/Lidocaine 10 Ml Oral.Susp) 10 ml PO Q4H PRN; Protocol PRN Reason: mouth pain Omeprazole (Omeprazole 20 Mg/10 Ml Susp.Recon) 40 mg PO BID@0630,1630 [facility] Last Admin: 06/11/21 05:30 Dose: 40 mg Documented by: GREG Ondansetron HCl (Ondansetron Hcl 4 Mg/2 Ml Vial) 4 mg IVPUSH Q8H PRN PRN Reason: Nausea and Vomiting Last Admin: 06/06/21 03:11 Dose: 4 mg Documented by: GARRY Prednisone (Prednisone 20 Mg Tablet) 40 mg PO DAILY [facility] Last Admin: 06/11/21 08:15 Dose: 40 mg Documented by: ARUN Sevelamer Carbonate (Sevelamer Carbonate Powder 800 Mg Powd.Pack) 800 mg PO TIDWM [facility] Last Admin: 06/11/21 08:14 Dose: 800 mg Documented by: ARUN Sodium Bicarbonate (Sodium Bicarbonate 650 Mg Tablet) 650 mg PO QID [facility] Last Admin: 06/11/21 08:15 Dose: 650 mg Documented by: ARUN Labs CBC & Chem 7: 06/09/21 08:21 06/11/21 06:27 Labs: Laboratory Results - last 24 hr 06/08/21 06/09/21 06/11/21 14:53 12:35 06:27 Antithrombin III Activ 106 Anion Gap 16 Estim Creat Clear Calc 10.5 Estimated GFR 6 Random Glucose 129 H Calcium 8.0 L D HIV 1&2 Ab/P24 Ag 4thGn Nonreactive Assessment and Plan (1) PRES (posterior reversible encephalopathy syndrome): Status: Acute (2) HTN (hypertension): Status: Acute (3) Hypokalemia due to excessive renal loss of potassium: Status: Acute Assessment and Plan: 1. htn urgency: bp flactuating 160 /115 range Pres-improving d/w nephro and icu: blood pressure still uncontrolled-seen by speech-switched po- po amlodipine ,coreg , adjusted hydralzine po 100 tid,added clonidine may add iv hydralazine for backup if needed. ? patient was in ICU briefly yesterday her blood pressure? seems to be improvin on 05/07/22. continue above medications. immonlogy test seems neg other serology as adjusted by ICU-? Antithrombin 3, protein C and S, factor 5 laden added pending ? Vasotec was discontinued as per discussion with Nephrology since patient has tongue swelling and question of initialpossible Angioneurotic edema. ? 2.? ESRD: ?patient has PermCath site oozing last night and was stopped with pressure- currently PermCath site oozing is stopped. ? We called IR already to look at PermCath site again. ?seen by Nephrology, Since we are unable to perform PD , switch to hemodialysis HD TTS 3. tongue swelling/ injury: unclear etiology- thought to be possible Angioneurotic edema, sequela: hypercoagulability workup is pending and as well as serologies negative CTA of are head neck vessels ?now on p.o. feeds ?patient has significant tongue swelling today- question recurrentAngioneurotic edema, sequela-? on IV Solu med and Benadryl as well as FFP - patient on swelling seems to be improving, discussed with switched to poprednisone and Benadryl dosing adjusted. oob ?PT evaluation -may need acute rehab 4. hypokalemia: repleted,? Monitor BMP, replace as needed.? this is for uncontrolled hypertension,recent press- monitor blood pressure and added clonidine for today. Depending upon blood pressure will planned tomorrow disposition after HD. in addition patient is waiting on acute rehab bed. Quality Stroke Does the patient have a stroke diagnosis?: No VTE Prior VTE?: No VTE Risk Level:: Medical - moderate - high VTE Device Contraindication: N/A - Device Ordered VTE Drug Contraindication: N/A - Med Ordered
[2021-06-11] MEDS: Potassium Chloride Packet 20 MEQ PACKET PO (12:37)
--- NOTE | 2021-06-11 13:57 | MHC.CM.PN ---
Per ROUNDS discussion, Patient is likely ready for dc soon. STR is the goal for dc and CM will follow for SNF bed search/bed availability.
[2021-06-11] MEDS: Acetaminophen Oral Liquid 650 MG/20.3 ML SOLUTION PO (15:49)
--- NOTE | 2021-06-11 16:47 | MHC.CLN ---
F/U DIET= 2 GRAM SODIUM, LOW POTASSIUM, LOW PHOSPHORUS, PUREE WITH NECTAR THICK LIQUIDS. 1:1 ASSIST WITH FEEDING. THERAPEUTIC DIET FOR DIALYSIS NEEDS. INTAKE IMPROVING WITH MOST RECENT MEALS 50-100%. WORKING WITH REPAIR MANAGER. FOLLOW INTAKE, LABS, AND DIET PROGRESSION.
--- NOTE | 2021-06-11 18:33 | P.PNNP_ITS ---
Subjective Subjective Date of Service: 06/28/21 Interval history: Uncontrolled hypertension, tongue edema- improved BP remains elevated Physical Exam Verdana 4l Vital Signs: Verdana 4d Verdana 4d Vital Signs: Verdana 4d Verdana 4Bd Last Vital Signs Verdana 4d Piano Machine Operator New 4d Piano Machine Operator New 4d Temp 97.1 F 06/11/21 15:20 Piano Machine Operator New 4d Pulse 80 06/11/21 15:20 Piano Machine Operator New 4d Resp 18 06/11/21 15:20 BP 162/105 H 06/11/21 15:20 Pulse Ox 98 06/11/21 15:20 BMI result Body Mass Index 25.7 Const: Other: ENT: Tongue is beter CVS: Normal heart rate and rhythm. Pulses normal. Normal S1 and S2 Respiratory: No respiratory distress. Breath sounds normal. No Wheezing. No rales Abdomen: Soft and nontender. No rigidity. No distention, patient has a peritoneal dialysis catheter in the abdomen Skin: Skin warm and dry. Extremities: Mild edema / anasarca Neuro: awake Neuro: Other: Sedated and intubated. When I open her eyes, her pupils were about 3 mm round reactive. There was little bit of roving motions. There was little bit of grimace with pain. Deep tendon reflexes were absent with flexor plantars. T ongue was severely swollen. Exam was limited. Objective Data Labs CBC & Chem 7: 06/12/21 08:54 06/13/21 04:29 Labs: Laboratory Results - last 24 hr 06/08/21 06/09/21 06/11/21 14:53 12:35 06:27 Antithrombin III Activ 106 Sodium 142 Potassium 3.2 L Chloride 103 Carbon Dioxide 26 Anion Gap 16 BUN 36 H D Creatinine 7.72 H* Estim Creat Clear Calc 10.5 Estimated GFR 6 Random Glucose 129 H Calcium 8.0 L D HIV 1&2 Ab/P24 Ag 4thGn Nonreactive Microbiology Microbiology Results: Microbiology 06/01/21 23:47 Blood - Venous Blood Culture - Final No growth after 5 days. 06/01/21 23:41 Blood - Venous Blood Culture - Final No growth after 5 days. 05/29/21 04:35 Blood - Venous Blood Culture - Final Staphylococcus epidermidis 05/29/21 04:35 Blood - Venous Blood Culture - Final Staphylococcus epidermidis Procedures Date of Service Date of Service: 07/12/21 Assessment & Plan Assessment and plan (1) ESRD (end stage renal disease): Status: Acute Plan ESRD on Peritoneal dialysis Severe Acidosis Anemia Since we are unable to perform PD , switched to hemodialysis HD TTS She will resume CCPD upon discharge Severe anemia Transfuse PRBCs as indicated Epogen per protocol Uncontrolled HTN Will remove fluid with HD tomorrow Meds noted Agree with Clonidine ADD Spironolactone 25 mg QD Time Spent With Patient Time: Total time spent is greater than 50% in coordination of care (as documented) at patient's floor/unit and/or counseling patient: Time with patient: 15 - 24 minutes Progress Note: Quality Stroke Does the patient have a stroke diagnosis?: No
[2021-06-12] VITALS: BP 157/96; PULSE 88; RESP 17; TEMP 36.4; O2SAT 98
[2021-06-12 04:00] VITALS: BP 167/112; PULSE 74; RESP 14; TEMP 36.3; O2SAT 97
[2021-06-12 05:39] VITALS: BP 167/97
--- NOTE | 2021-06-12 06:06 | PC.NURSE ---
PHONE CALL INTERCEPTED BY UNIT INFORMATION SECURITY DIRECTOR, TRANSPORT TO DIALYSIS AT THIS TIME, 0555. PT TO DIALYSIS IN HER BED AT 0558 BY 2 INFORMATION SECURITY DIRECTOR'S. LEFT BEFORE DAILY WEIGHT COULD BE OR AM PRILOSEC
[2021-06-12 09:02] LABS: Hematocrit 28.9 % (37.0-47.0); Hemoglobin 9.3 g/dl (12.0-16.0); Mean Corpuscular HGB Conc 32.2 g/dl (31.0-35.0); Mean Corpuscular Hemoglobin 28.1 pg (27.0-33.0); Mean Corpuscular Volume 87.3 fL (80.0-98.0); Mean Platelet Volume 9.6 fL (9.4-12.3); Platelet Count 184 X10*3/uL (160-400); Red Blood Count 3.31 X10*6/uL (4.20-5.50); Red Cell Distribution Width 15.1 % (11.0-16.0); White Blood Count 16.6 X10*3/uL (4.8-10.8)
--- NOTE | 2021-06-12 10:52 | PM.PNNEP ---
Subjective Subjective Date of Service: 06/12/21 Interval history: Seen and examined, events noted Physical Exam Vital Signs: Vital Signs: Last Vital Signs Temp 97.3 F 06/12/21 04:00 Pulse 74 06/12/21 04:00 Resp 14 06/12/21 04:00 BP 167/97 H 06/12/21 05:39 Pulse Ox 97 06/12/21 04:00 BMI result Body Mass Index 25.7 Const: Other: ENT: Tongue is beter CVS: Normal heart rate and rhythm. Pulses normal. Normal S1 and S2 Respiratory: No respiratory distress. Breath sounds normal. No Wheezing. No rales Abdomen: Soft and nontender. No rigidity. No distention, patient has a peritoneal dialysis catheter in the abdomen Skin: Skin warm and dry. Extremities: Mild edema / anasarca Neuro: awake Neuro: Other: Sedated and intubated. When I open her eyes, her pupils were about 3 mm round reactive. There was little bit of roving motions. There was little bit of grimace with pain. Deep tendon reflexes were absent with flexor plantars. Tongue was severely swollen. Exam was limited. Objective Data Labs CBC & Chem 7: 06/12/21 08:54 06/11/21 06:27 Labs: Laboratory Results - last 24 hr 06/12/21 08:54 WBC 16.6 H RBC 3.31 L Hgb 9.3 L Hct 28.9 L MCV 87.3 MCH 28.1 MCHC 32.2 RDW 15.1 Plt Count 184 MPV 9.6 Absolute Nucleated RBC 0.000 Nucleated RBC % (auto) 0.0 Microbiology Microbiology Results: Microbiology 06/01/21 23:47 Blood - Venous Blood Culture - Final No growth after 5 days. 06/01/21 23:41 Blood - Venous Blood Culture - Final No growth after 5 days. 05/29/21 04:35 Blood - Venous Blood Culture - Final Staphylococcus epidermidis 05/29/21 04:35 Blood - Venous Blood Culture - Final Staphylococcus epidermidis Procedures Date of Service Date of Service: 06/12/21 Assessment & Plan Assessment and plan (1) ESRD (end stage renal disease): Status: Acute Assessment and Plan: 1. ESRD normally on Peritoneal dialysis followed by Dr Britt; now on HD as unable to provide PD here in hospital 2. Severe HTN: better now but still high; per PT it hronically runs high; of ARB givemn theorectical concern that it could potentially contriute to angioedema 3. Angioedema: tongue swelling dedcr; ques precipitant REC: add clonidine for BP control, cont HD for now and switch back to CCPD once d/c home; avoid LORRAINE/ARB for now; cont to taper steroids; outpt f/u with equine science instructor reprecipitant of angioedema Time Spent With Patient Time: Total time spent is greater than 50% in coordination of care (as documented) at patient's floor/unit and/or counseling patient: Progress Note: Quality Stroke Does the patient have a stroke diagnosis?: No
[2021-06-12 11:50] VITALS: BP 161/114; PULSE 77; RESP 18; TEMP 36.9; O2SAT 98
[2021-06-12] MEDS: Sodium Bicarbonate 650 MG TABLET PO ×3 (14:12→20:20)
[2021-06-12] MEDS: cloNIDine HCL 0.1 MG TABLET PO (14:12)
[2021-06-12] MEDS: hydrALAZINE HCl 50 MG TABLET 100 MG PO ×2 (14:12→20:20)
[2021-06-12] MEDS: Sevelamer Carbonate Powder 800 MG POWD.PACK PO ×2 (14:12→16:30)
[2021-06-12] MEDS: Acetaminophen Oral Liquid 650 MG/20.3 ML SOLUTION PO (14:15)
--- NOTE | 2021-06-12 14:25 | MHC.SL.SWA ---
Speech Pathologist Impression: Risk of Aspiration Oralpharyngeal Dysphagia Risk of Aspiration Due to: Neurological Condition Hx of Recent Extubation Weak Voice Dysphasia Diet Status: Upgrade Liquid Consistency and Strategies for Safe Swallow: Liquid Intake Recommendation: Thin Liquid Intake Strategies: Liquids by Teaspoon Only Solid Food Consistency: Dietary Recommendations: Pureed (NDD1) Pt seen this a.m. for repeat trials. Pt was sitting up in bed, alert and communicating/responding verbally to questions. Pt's tongue is now well contained in mouth, no open mouth posture noted on this visit. Pt reports that she has been managing diet well, when offered, said that she though she could manage thin liquids now. Pt was presented w/ nectar thick liquid by spoon and self administered cup sip, w/ reduced length of oral phase, evident swallow trigger and timely swallow. Pt given tsps of thin liquid and cup sip of thin liquid, w/good containment of liquid, mild delay of oral phase, swallow trigger and timely swallow w/ no clinical s/s aspiration. Pt given soft solid in puree, pt had prolonged oral phase, c/o difficulty chewing the solid, tongue getting in the way, produced double swallow after oral phase. Recommend UPGRADE to THIN LIQUIDS, continue PUREE (NDD1) at this time as well as pills CRUSHED in PUREE. Upgrade entered in diet orders by TREE AND SHRUB WORKER. Oral Medication Intake: Crushed with Puree Compensatory Strategies and Precautions to be Taken for Safe Swallow: Sitting Upright (90 deg) Double Swallow No Straw Liquids from Cup Liquids from Spoon Small Bites and Sips Alternate Liquids/Solids Rate of Ingestion Change Supervision While Eating and Drinking for Safe Swallow: Total Assistance Foods to Avoid: Swallowing Recommended Treatments: Compens. Strategy Educat. Recommendation for Speech: Inpatient Speech Therapy Pt seen this a.m. for repeat trials. Pt was sitting up in bed, alert and communicating/responding verbally to questions. Pt's tongue is now well contained in mouth, no open mouth posture noted on this visit. Pt reports that she has been managing diet well, when offered, said that she though she could manage thin liquids now. Pt was presented w/ nectar thick liquid by spoon and self administered cup sip, w/ reduced length of oral phase, evident swallow trigger and timely swallow. Pt given tsps of thin liquid and cup sip of thin liquid, w/good containment of liquid, mild delay of oral phase, swallow trigger and timely swallow w/ no clinical s/s aspiration. Pt given soft solid in puree, pt had prolonged oral phase, c/o difficulty chewing the solid, tongue getting in the way, produced double swallow after oral phase. Recommend UPGRADE to THIN LIQUIDS, continue PUREE (NDD1) at this time as well as pills CRUSHED in PUREE. Upgrade entered in diet orders by TREE AND SHRUB WORKER. Frequency/Duration: M-F Date Range for Service Req: Timeline to reassess: Primer Boxer Clinican/Clinical Fellow: No Supervisory Statement: I have reviewed and agree with the student/clinical fellow's documentation: N/A Speech Language Pathologist: Nadege Bautista M.A., CCC-TREE AND SHRUB WORKER
[2021-06-12] MEDS: diphenhydrAMINE HCL 25 MG TABLET PO ×2 (14:39→20:20)
--- NOTE | 2021-06-12 14:44 | P.PNIM_ITS ---
Subjective Subjective Date of Service: 06/12/21 Interval History: Uncontrolled htn Review of Systems patient blood pressure is still uncontrolled denies any chest pain or confusion. She speaking better day-by-day Physical Exam Vital Signs: Vital Signs: Last Vital Signs Temp 98.4 F 06/12/21 11:50 Pulse 77 06/12/21 11:50 Resp 18 06/12/21 11:50 BP 161/114 H 06/12/21 11:50 Pulse Ox 98 06/12/21 11:50 BMI result Body Mass Index 25.7 physical exam: Appearance: Alert.? Oriented X3.? not in distress.? Eyes: Pupils equal, round and reactive to light.?? ENT:? tongue swelling improving, but denies any shortness of breath or interval breathing at. ? Neck area no swelling, supple cvs: rrr, [id number] , no murmur res: clear to auscultation ,no rhonchii or wheezing abd: no rebound or guarding ,nt, bs present. ext pulses present , no cyanosis . neuro: axo3 , nonfocal. Objective Data Active Medications Acetaminophen (Acetaminophen Oral Liquid 650 Mg/20.3 Ml Solution) 650 mg PO Q4H PRN PRN Reason: Pain, Mild (Pain Scale 1-3) Last Admin: 06/12/21 14:15 Dose: 650 mg Documented by: BO Amlodipine Besylate (Amlodipine Besylate 10 Mg Tablet) 10 mg PO DAILY [facility]; Protocol Last Admin: 06/12/21 10:17 Dose: Not Given Documented by: BO Non-Admin Reason: Off unit: Dialysis Carvedilol (Carvedilol 25 Mg Tablet) 25 mg PO BID [facility]; Protocol Last Admin: 06/12/21 10:17 Dose: Not Given Documented by: BO Non-Admin Reason: Off unit: Dialysis Clonidine HCl (Clonidine Hcl 0.1 Mg Tablet) 0.1 mg PO BID [facility]; Protocol Last Admin: 06/12/21 14:12 Dose: 0.1 mg Documented by: BO Diphenhydramine HCl (Diphenhydramine Hcl 25 Mg Tablet) 25 mg PO BID [facility] Last Admin: 06/12/21 14:39 Dose: 25 mg Documented by: BO Heparin Sodium (Porcine) (Heparin Sodium,Porcine Flush 50 Units/5 Ml Syringe) 50 units IVFLUSH QSHIFT [facility] Last Admin: 06/12/21 09:36 Dose: Not Given Documented by: BO Non-Admin Reason: Off unit: Dialysis Hydralazine HCl (Hydralazine Hcl 20 Mg/Ml Vial) 10 mg IVPUSH Q4H PRN; Protocol PRN Reason: htn Last Admin: 06/07/21 07:45 Dose: 10 mg Documented by: BRADEN Hydralazine HCl (Hydralazine Hcl 50 Mg Tablet) 100 mg PO TID [facility] Last Admin: 06/12/21 14:12 Dose: 100 mg Documented by: BO Lidocaine/Diphenhydr/Alum/Mg/Simeth (Mag&Al/Sim/Diphenhyd/Lidocaine 10 Ml Oral.Susp) 10 ml PO Q4H PRN; Protocol PRN Reason: mouth pain Omeprazole (Omeprazole 20 Mg/10 Ml Susp.Recon) 40 mg PO BID@0630,1630 [facility] Last Admin: 06/12/21 06:09 Dose: Not Given Documented by: MARRY Non-Admin Reason: Off unit: Dialysis Ondansetron HCl (Ondansetron Hcl 4 Mg/2 Ml Vial) 4 mg IVPUSH Q8H PRN PRN Reason: Nausea and Vomiting Last Admin: 06/06/21 03:11 Dose: 4 mg Documented by: GARRY Prednisone (Prednisone 20 Mg Tablet) 40 mg PO DAILY [facility] Last Admin: 06/12/21 10:17 Dose: Not Given Documented by: BO Non-Admin Reason: Off unit: Dialysis Sevelamer Carbonate (Sevelamer Carbonate Powder 800 Mg Powd.Pack) 800 mg PO TIDWM [facility] Last Admin: 06/12/21 14:12 Dose: 800 mg Documented by: BO Sodium Bicarbonate (Sodium Bicarbonate 650 Mg Tablet) 650 mg PO QID [facility] Last Admin: 06/12/21 14:12 Dose: 650 mg Documented by: BO Spironolactone (Spironolactone 25 Mg Tablet) 25 mg PO DAILY [facility]; Protocol Last Admin: 06/12/21 10:17 Dose: Not Given Documented by: BO Non-Admin Reason: Off unit: Dialysis Labs CBC & Chem 7: 06/12/21 08:54 06/11/21 06:27 Labs: Laboratory Results - last 24 hr 06/12/21 08:54 MCV 87.3 MCH 28.1 MCHC 32.2 RDW 15.1 Plt Count 184 MPV 9.6 Absolute Nucleated RBC 0.000 Nucleated RBC % (auto) 0.0 Assessment and Plan (1) PRES (posterior reversible encephalopathy syndrome): Status: Acute (2) HTN (hypertension): Status: Acute Assessment and Plan: 1. htn urgency: bp flactuating 160 /115 range Pres-improving continue po amlodipine ,coreg , adjusted hydralzine po 100 tid,added clonidine may add iv hydralazine for backup if needed. ? patient was in ICU briefly yesterday her blood pressure? seems to be improvin on 05/07/22. continue above medications. ? Vasotec was discontinued as per discussion with Nephrology since patient has tongue swelling and question of initialpossible Angioneurotic edema. ? discussed with Nephrology continue above medication in addition p.o. clonidine also added. 2.? ESRD: ?patient has PermCath site oozing last night and was stopped with pressure- currently PermCath site oozing is stopped. ? We called IR already to look at PermCath site again. ?seen by Nephrology, Since we are unable to perform PD , switch to hemodialysis HD TTS 3. tongue swelling/ injury: unclear etiology- thought to be possible Angioneurotic edema, sequela: hypercoagulability workup is pending and as well as serologies negative CTA of are head neck vessels Immunology : HARJINDER, protein is 3, Pallavi low peroxidase antibody, anti cardiolipin IgG and IgM antibodies negative other serology as adjusted by ICU-? Antithrombin 3 activity seems normal, prothrombin mutation,protein C and S, factor 5 laden pending ?now on p.o. feeds ?patient has significant tongue swelling today- question recurrentAngioneurotic edema, sequela-? on IV Solu med and Benadryl as well as FFP - patient on swelling seems to be improving, discussed with switched to poprednisone and Ruben adryl dosing adjusted. oob ?PT evaluation -may need acute rehab 4. hypokalemia: repleted,? Monitor BMP, replace as needed.? ?this is for? uncontrolled hypertension,recent press- monitor blood pressure and added clonidine for today.? Depending upon blood pressure will planned tomorrow disposition after HD. ?? in addition patient is waiting on acute rehab bed. Quality Stroke Does the patient have a stroke diagnosis?: No VTE Prior VTE?: No VTE Risk Level:: Medical - moderate - high VTE Device Contraindication: N/A - Device Ordered VTE Drug Contraindication: N/A - Med Ordered
[2021-06-12 16:00] VITALS: BP 161/106; PULSE 82; RESP 18; TEMP 36.8; O2SAT 98
[2021-06-12] MEDS: amLODIPine Besylate 10 MG TABLET PO (16:27)
[2021-06-12] MEDS: Heparin Sodium,Porcine Flush 50 UNITS/5 ML SYRINGE IVFLUSH (16:27)
[2021-06-12] MEDS: carvediloL 25 MG TABLET PO ×2 (16:30→23:58)
[2021-06-12 19:44] VITALS: BP 134/91; PULSE 86; RESP 18; TEMP 36.7; O2SAT 98
[2021-06-13] VITALS (7 sets, daily range): BP systolic 124–157; BP diastolic 80–101; PULSE 78–86; RESP 14–18; TEMP 36.2–37.1; O2SAT 98–99
[2021-06-13] MEDS: Heparin Sodium,Porcine Flush 50 UNITS/5 ML SYRINGE IVFLUSH ×2 (00:05→11:14)
[2021-06-13] MEDS: cloNIDine HCL 0.1 MG TABLET PO ×3 (00:08→21:53)
[2021-06-13 05:26] LABS: Anion Gap 14 (12-20); Blood Urea Nitrogen 30 mg/dL (9-16); Calcium 8.2 mg/dL (8.4-10.2); Carbon Dioxide 22 mmol/L (22-29); Chloride 103 mmol/L (96-108); Creatinine Clr Calc Pharmacy 12.7; Estimated Glomerular Filt Rate 7; Glucose Random 109 mg/dL (60-115); Potassium 4.3 mmol/L (3.3-5.1); Sodium 135 mmol/L (135-145)
[2021-06-13] MEDS: Acetaminophen Oral Liquid 650 MG/20.3 ML SOLUTION PO ×2 (08:15→21:53)
[2021-06-13] MEDS: hydrALAZINE HCl 50 MG TABLET 100 MG PO ×4 (08:16→21:52)
[2021-06-13] MEDS: Sodium Bicarbonate 650 MG TABLET PO ×4 (08:17→21:52)
[2021-06-13] MEDS: Spironolactone 25 MG TABLET PO (08:17)
[2021-06-13] MEDS: predniSONE 20 MG TABLET 40 MG PO (08:17)
[2021-06-13] MEDS: diphenhydrAMINE HCL 25 MG TABLET PO ×2 (08:18→21:52)
[2021-06-13] MEDS: Sevelamer Carbonate Powder 800 MG POWD.PACK PO ×3 (08:19→16:56)
--- NOTE | 2021-06-13 10:26 | P.PNNP_ITS ---
Subjective Subjective Date of Service: 06/13/21 Principal diagnosis: esrd Interval history: Uncontrolled htn Physical Exam Vital Signs: Vital Signs: Last Vital Signs Temp 98.3 F 06/13/21 07:24 Pulse 78 06/13/21 07:24 Resp 18 06/13/21 07:24 BP 149/101 H 06/13/21 07:24 Pulse Ox 99 06/13/21 07:24 BMI result Body Mass Index 25.7 Const: Other: ENT: Tongue is beter CVS: Normal heart rate and rhythm. Pulses normal. Normal S1 and S2 Respiratory: No respiratory distress. Breath sounds normal. No Wheezing. No rales Abdomen: Soft and nontender. No rigidity. No distention, patient has a peritoneal dialysis catheter in the abdomen Skin: Skin warm and dry. Extremities: Mild edema / anasarca Neuro: awake Neuro: Other: Sedated and intubated. When I open her eyes, her pupils were about 3 mm round reactive. There was little bit of roving motions. There was little bit of grimace with pain. Deep tendon reflexes were absent with flexor plantars. Tongue was severely swollen. Exam was limited. Objective Data Labs CBC & Chem 7: 06/12/21 08:54 06/13/21 04:29 Labs: Laboratory Results - last 24 hr 06/13/21 04:29 Sodium 135 Potassium 4.3 D Chloride 103 Carbon Dioxide 22 Anion Gap 14 BUN 30 H Creatinine 6.42 H* Estim Creat Clear Calc 12.7 Estimated GFR 7 Random Glucose 109 Calcium 8.2 L Microbiology Microbiology Results: Microbiology 06/01/21 23:47 Blood - Venous Blood Culture - Final No growth after 5 days. 06/01/21 23:41 Blood - Venous Blood Culture - Final No growth after 5 days. 05/29/21 04:35 Blood - Venous Blood Culture - Final Staphylococcus epidermidis 05/29/21 04:35 Blood - Venous Blood Culture - Final Staphylococcus epidermidis Procedures Date of Service Date of Service: 06/13/21 Assessment & Plan Assessment and plan (1) ESRD (end stage renal disease): Start date: 06/13/21 Status: Acute Assessment and Plan: 1. ESRD normally on Peritoneal dialysis followed by Dr Britt; now on HD as unable to provide PD here in hospital 2. Severe HTN: better now but still high; per PT it historically runs high; of ARB givemn theorectical concern that it could potentially contriute to angioedema 3. Angioedema: tongue swelling dedcr; ques precipitant REC: cont clonidine for BP control, cont HD for now and switch back to CCPD once d/c home; avoid LORRAINE/ARB for now; cont to taper steroids; outpt f/u with multimedia instructional designer re precipitant of angioedema Apparently PT eval snehal PT is to weak to go home and needs Rehab---[facility] ability to do PD and this would be best option given lack of outp HD spots in the HD units for HD Time Spent With Patient Time: Total time spent is greater than 50% in coordination of care (as documented) at patient's floor/unit and/or counseling patient: Progress Note: Quality Stroke Does the patient have a stroke diagnosis?: No
--- NOTE | 2021-06-13 11:40 | MHC.SL.SWA ---
Speech Pathologist Impression: Risk of Aspiration Oralpharyngeal Dysphagia Risk of Aspiration Due to: Neurological Condition Hx of Recent Extubation Weak Voice Dysphasia Diet Status: No Change Liquid Consistency and Strategies for Safe Swallow: Liquid Intake Recommendation: Thin Liquid Intake Strategies: Liquids by Teaspoon Only Solid Food Consistency: Dietary Recommendations: Pureed (NDD1) Additional Modifications to Solid Foods: Continue PUREED (NDD1) solids and THIN liquids, pills CRUSHED in PUREE; with total supervision and aspiration precautions. Oral Medication Intake: Crushed with Puree Compensatory Strategies and Precautions to be Taken for Safe Swallow: Sitting Upright (90 deg) Small Bites and Sips Alternate Liquids/Solids Rate of Ingestion Change Supervision While Eating and Drinking for Safe Swallow: Total Supervision (1:1) Swallowing Recommended Treatments: Compens. Strategy Educat. Recommendation for Speech: Inpatient Speech Therapy Frequency/Duration: M-F Product Blending Supervisor Clinican/Clinical Fellow: No Supervisory Statement: I have reviewed and agree with the student/clinical fellow's documentation: N/A Speech Language Pathologist: Kourtney Avila M.A., CCC-CARDIAC MONITOR TECHNICIAN
[2021-06-13] MEDS: carvediloL 25 MG TABLET PO ×2 (12:10→21:53)
--- NOTE | 2021-06-13 12:32 | P.PNIM_ITS ---
Subjective Subjective Date of Service: 06/13/21 Interval History: Uncontrolled htn, esrd on hd Review of Systems patient blood pressure is still uncontrolled ?denies any chest pain or confusion. ? She speaking better Physical Exam Vital Signs: Vital Signs: Last Vital Signs Temp 97.9 F 06/13/21 11:32 Pulse 81 06/13/21 11:32 Resp 18 06/13/21 11:32 BP 149/100 H 06/13/21 11:32 Pulse Ox 98 06/13/21 11:32 BMI result Body Mass Index 25.7 Appearance: Alert.? Oriented X3.? not in distress.? Eyes: Pupils equal, round and reactive to light.?? ENT:? tongue swelling improving, but denies any shortness of breath or interval breathing at. ? Neck area no swelling, supple cvs: rrr, [id number] , no murmur res: clear to auscultation ,no rhonchii or wheezing abd: no rebound or guarding ,nt, bs present. ext pulses present , no cyanosis . neuro: axo3 , nonfocal. Objective Data Active Medications Acetaminophen (Acetaminophen Oral Liquid 650 Mg/20.3 Ml Solution) 650 mg PO Q4H PRN PRN Reason: Pain, Mild (Pain Scale 1-3) Last Admin: 06/13/21 08:15 Dose: 650 mg Documented by: BO Amlodipine Besylate (Amlodipine Besylate 10 Mg Tablet) 10 mg PO DAILY@1300 BELIA; Protocol Last Admin: 06/12/21 16:27 Dose: 10 mg Documented by: MATTQC Carvedilol (Carvedilol 25 Mg Tablet) 25 mg PO BID@1100,2300 BELIA; Protocol Last Admin: 06/13/21 12:10 Dose: 25 mg Documented by: BO Clonidine HCl (Clonidine Hcl 0.1 Mg Tablet) 0.1 mg PO BID@1100,2300 BELIA; Protocol Last Admin: 06/13/21 12:10 Dose: 0.1 mg Documented by: BO Diphenhydramine HCl (Diphenhydramine Hcl 25 Mg Tablet) 25 mg PO BID [facility] Last Admin: 06/13/21 08:18 Dose: 25 mg Documented by: BO Heparin Sodium (Porcine) (Heparin Sodium,Porcine Flush 50 Units/5 Ml Syringe) 50 units IVFLUSH [facility] Last Admin: 06/13/21 11:14 Dose: 50 units Documented by: BO Hydralazine HCl (Hydralazine Hcl 20 Mg/Ml Vial) 10 mg IVPUSH Q4H PRN; Protocol PRN Reason: htn Last Admin: 06/07/21 07:45 Dose: 10 mg Documented by: BRADEN Hydralazine HCl (Hydralazine Hcl 50 Mg Tablet) 100 mg PO TID [facility] Last Admin: 06/13/21 08:16 Dose: 100 mg Documented by: BO Hydralazine HCl (Hydralazine Hcl 50 Mg Tablet) 100 mg PO TID [facility] Last Admin: 06/13/21 11:17 Dose: 100 mg Documented by: BO Lidocaine/Diphenhydr/Alum/Mg/Simeth (Mag&Al/Sim/Diphenhyd/Lidocaine 10 Ml Oral.Susp) 10 ml PO Q4H PRN; Protocol PRN Reason: mouth pain Omeprazole (Omeprazole 20 Mg/10 Ml Susp.Recon) 40 mg PO BID@0630,1630 [facility] Last Admin: 06/13/21 06:42 Dose: 40 mg Documented by: SHANNON Ondansetron HCl (Ondansetron Hcl 4 Mg/2 Ml Vial) 4 mg IVPUSH Q8H PRN PRN Reason: Nausea and Vomiting Last Admin: 06/06/21 03:11 Dose: 4 mg Documented by: GARRY Prednisone (Prednisone 20 Mg Tablet) 40 mg PO DAILY [facility] Last Admin: 06/13/21 08:17 Dose: 40 mg Documented by: BO Sevelamer Carbonate (Sevelamer Carbonate Powder 800 Mg Powd.Pack) 800 mg PO TIDWM [facility] Last Admin: 06/13/21 12:10 Dose: 800 mg Documented by: BO Sodium Bicarbonate (Sodium Bicarbonate 650 Mg Tablet) 650 mg PO QID [facility] Last Admin: 06/13/21 08:17 Dose: 650 mg Documented by: BO Spironolactone (Spironolactone 25 Mg Tablet) 25 mg PO DAILY [facility]; Protocol Last Admin: 06/13/21 08:17 Dose: 25 mg Documented by: BO Labs CBC & Chem 7: 06/12/21 08:54 06/13/21 04:29 Labs: Laboratory Results - last 24 hr 06/13/21 04:29 Anion Gap 14 Estim Creat Clear Calc 12.7 Estimated GFR 7 Random Glucose 109 Calcium 8.2 L Assessment and Plan (1) PRES (posterior reversible encephalopathy syndrome): Status: Acute (2) HTN (hypertension): Status: Acute (3) Angioneurotic edema, sequela: Status: Acute Assessment and Plan: 1. htn urgency: bp flactuating 140/100 Pres-improving ?continue po amlodipine ,coreg , adjusted hydralzine po 100 tid,added clonidine may add iv hydralazine for backup if needed. ? patient was in ICU briefly yesterday her blood pressure? seems to be improvin on 05/07/22. continue above medications. ? Vasotec was discontinued as per discussion with Nephrology since patient has tongue swelling and question of initialpossible Angioneurotic edema. ? discussed with Nephrology continue above medication in addition p.o. clonidine also added. 2.? ESRD: ?patient has PermCath site oozing last night and was stopped with pressure- currently PermCath site oozing is stopped. ? We called IR already to look at PermCath site again. ?seen by Nephrology, Since we are unable to perform PD , switch to hemodialysis HD TTS 3. tongue swelling/ injury: unclear etiology- thought to be possible Angioneurotic edema, sequela: hypercoagulability workup is pending and as well as serologies negative CTA of are head neck vessels ? Immunology : HARJINDER, protein is 3, Pallavi low peroxidase antibody, anti cardiolipin IgG and IgM antibodies negative other serology as adjusted by ICU-? Antithrombin 3? activity seems normal,? prothrombin mutation,protein C and S, factor 5 laden pending ?now on p.o. feeds ?patient has significant tongue swelling today- question recurrentAngioneurotic edema, sequela-? on IV Solu med and Benadryl as well as FFP - patient on swelling seems to be improving, discussed with switched to poprednisone and Benadryl dosing adjusted. oob ?PT evaluation -may need acute rehab 4. hypokalemia: repleted,? Monitor BMP, replace as needed.? ?this is for? uncontrolled hypertension,recent press- monitor blood pressure and added clonidine for today.? Depending upon blood pressure will planned tomorrow disposition after HD. ?? in addition patient is waiting on acute rehab bed. Quality Stroke Does the patient have a stroke diagnosis?: No VTE Prior VTE?: No VTE Risk Level:: Medical - moderate - high VTE Device Contraindication: N/A - Device Ordered VTE Drug Contraindication: N/A - Med Ordered
--- NOTE | 2021-06-13 12:44 | MHC.CM.PN ---
SNF search is ongoing.Both SNFs that have on site HD are following for bed availability.CM will continue to follow.
--- NOTE | 2021-06-13 13:19 | MHC.CLN ---
F/U RECEIVES HEMODIALYSIS. DIET= 2 GRAM SODIUM, LOW POTASSIUM, LOW PHOSPHORUS, PUREE. TOTAL SUPERVISION AND ASPIRATION PRECAUTIONS. THERAPEUTIC DIET FOR DIALYSIS NEEDS. TONGUE SWELLING IMPROVED. WORKING WITH EXECUTIVE CHEF ASSISTANT. INTAKE WITH MOST MEALS 50-100%. FOLLOW INTAKE, LABS, AND DIET PROGRESSION.
[2021-06-13] MEDS: amLODIPine Besylate 10 MG TABLET PO (14:12)
[2021-06-13 20:23] LABS: Anti-Thrombin III Antigen 108 % (80-120)
[2021-06-13 22:02] LABS: Protein C Activity 173 % (70-180); Protein S Activity rflx Tot&Fr 103 % (60-140)
[2021-06-14 03:44] VITALS: BP 137/87; PULSE 84; RESP 18; TEMP 36.6; O2SAT 98
[2021-06-14 07:29] VITALS: BP 165/106; PULSE 81; RESP 18; TEMP 37.5; O2SAT 97
[2021-06-14] MEDS: Sevelamer Carbonate Powder 800 MG POWD.PACK PO ×2 (07:54→17:01)
[2021-06-14] MEDS: diphenhydrAMINE HCL 25 MG TABLET PO (07:55)
--- NOTE | 2021-06-14 10:18 | P.PNNP_ITS ---
Subjective Subjective Date of Service: 06/14/21 Principal diagnosis: esrd Interval history: Uncontrolled htn, esrd on hd Physical Exam Vital Signs: Vital Signs: Last Vital Signs Temp 99.5 F 06/14/21 07:29 Pulse 81 06/14/21 07:29 Resp 18 06/14/21 07:29 BP 165/106 H 06/14/21 07:29 Pulse Ox 97 06/14/21 07:29 BMI result Body Mass Index 25.7 Const: Other: ENT: Tongue is beter CVS: Normal heart rate and rhythm. Pulses normal. Normal S1 and S2 Respiratory: No respiratory distress. Breath sounds normal. No Wheezing. No rales Abdomen: Soft and nontender. No rigidity. No distention, patient has a peritoneal dialysis catheter in the abdomen Skin: Skin warm and dry. Extremities: Mild edema / anasarca Neuro: awake Neuro: Other: Sedated and intubated. When I open her eyes, her pupils were about 3 mm round reactive. There was little bit of roving motions. There was little bit of grimace with pain. Deep tendon reflexes were absent with flexor plantars. Tongue was severely swollen. Exam was limited. Objective Data Labs CBC & Chem 7: 06/12/21 08:54 06/13/21 04:29 Labs: Laboratory Results - last 24 hr 06/09/21 12:35 Protein C Antigen TNP Protein C Activity 173 Protein S Activity 103 Total Protein S Ag TNP Free Protein S Antigen TNP Antithrombin III Ag 108 Microbiology Microbiology Results: Microbiology 06/01/21 23:47 Blood - Venous Blood Culture - Final No growth after 5 days. 06/01/21 23:41 Blood - Venous Blood Culture - Final No growth after 5 days. 05/29/21 04:35 Blood - Venous Blood Culture - Final Staphylococcus epidermidis 05/29/21 04:35 Blood - Venous Blood Culture - Final Staphylococcus epidermidis Procedures Date of Service Date of Service: 06/14/21 Assessment & Plan Assessment and plan (1) ESRD (end stage renal disease): Status: Acute Assessment and Plan: 1. ESRD normally on Peritoneal dialysis followed by Dr Britt; now on HD as unable to provide PD here in hospital 2. Severe HTN: better now but still high; per PT it historically runs high; of ARB givemn theorectical concern that it could potentially contriute to angioedema 3. Angioedema: tongue swelling dedcr; ques precipitant REC: cont clonidine for BP control, cont HD for now and switch back to [facility] once d/c home; avoid LORRAINE/ARB for now; cont to taper steroids; outpt f/u with personal banking representative re precipitant of angioedema Apparently PT eval states PT is to weak to go home and needs Rehab--but ques if now she is strong enough to go home------[facility] has ability to do PD and this would be best option given lack of outp HD spots in the HD units for HD Time Spent With Patient Time: Total time spent is greater than 50% in coordination of care (as documented) at patient's floor/unit and/or counseling patient: Progress Note: Quality Stroke Does the patient have a stroke diagnosis?: No
--- NOTE | 2021-06-14 11:42 | MHC.SLORD ---
Speech Language Pathology Order Status: Attempted to see patient for dysphagia treatment this AM, but patient was unavailable off-floor. PROGRAMMING DIRECTOR will continue to follow.
[2021-06-14] MEDS: Sodium Bicarbonate 650 MG TABLET PO ×2 (14:14→16:58)
[2021-06-14] MEDS: amLODIPine Besylate 10 MG TABLET PO (14:14)
[2021-06-14] MEDS: hydrALAZINE HCl 50 MG TABLET 100 MG PO (15:47)
[2021-06-14] MEDS: Acetaminophen Oral Liquid 650 MG/20.3 ML SOLUTION PO (15:51)
[2021-06-14 16:00] VITALS: BP 155/105; PULSE 81; RESP 16; TEMP 37.4; O2SAT 100
--- NOTE | 2021-06-14 16:02 | W.MHC.F2F ---
Service Date Service Date: 06/14/21 Encounter Date of encounter: 06/14/21 Reasons for Services Signs and symptoms assessed: Angioedema, uncontrolled hypertension and PRES Reason for chcf: CV/CP assess and/or care and medication management Reason for physical therapy: home safety and mobility Homebound: Leaving the home is medically contraindicated at this time without the asist of a device and/or another person due th the listed conditions above and below. Reason homebound: weakness related to hospital stay Certification: Based on the above findings, I certify that this patient is confined to the home and needs intermittent chcf care, physical therapy and/or speech therapy, or continues to need occupational therapy. The patient is under my care, and I have initiated the establishment of the plan of care. The patient will be followed by a physician who will periodically review the plan of care.
--- NOTE | 2021-06-14 16:03 | PM.DS ---
DS: Providers Provider Date of Service: 06/14/21 Date of admission: 05/29/21 16:08 Primary care physician: Unknown Physician Consults: 05/30/21 11:20 Consult to Neurology Routine Consulting Provider: Diana Barber Reason for consultation: AMS, ?PRES Has provider been notified: Yes 06/07/21 07:27 Consult to Critical Care Stat Consulting Provider: Rena Hayden Reason for consultation: htn urgency, permacath site bleedin 06/07/21 17:40 Consult to Infectious Diseases Routine Consulting Provider: Jessica Andersen Reason for consultation: leucocytosis unclear etiology Has provider been notified: No DS: Diagnosis Discharge Diagnosis (1) ESRD (end stage renal disease): Status: Acute DS: Summary Hospital Course Hospital Course: HPI: Chief Complaint: Upper airway obstruction Ms. Velazquez is being admitted to the ICU after being intubated in the ED for presumed Kenny?s angina. History is obtained from the ED staff. 41 yo woman BIBA to the ED early this morning.? The patient's family had not seen her for four days and called EMS.? The patient was found face down, tongue swollen, unable to speak, altered mental status.? The family reported that the patient is a dialysis patient and a few years ago she had a stroke.? Her baseline is alert and oriented.? The patient lives by herself and drives. On arrival to the ED, the patient was clearly awake, but unable to speak.? Mental status seemed altered.? The tongue was grossly enlarged, not able to fit in the mouth, necrotic, and draining foul-smelling purulence.? See pictures in the ED physician's record.? Heart rate was 68, blood pressure 145/101, respiratory rate 17, sat 100% on room air.? The sub mandibular area in front and on both sides of the mouth seemed to be very tender; the patient would not let anyone touch her there.? Chest was clear.? There was no lower extremity edema. Hospital course: Patient was admitted for acute airway compromise and got intubated probably related to tongue swelling, possible angioneurotic edema, also treated for PRES due to uncontrolled hypertension: Patient's initially was on IV anti hypertensive meds in ICU,tongue swelling treated with IV steroids and antibiotics Subsequently extubated and switched to p.o. medications, patient hospital course had another episode of tongue swelling-treated with steroids and Benadryl now swelling has improved patient has no difficulty with swallowing and breathing, patient is being discharged home on steroids and Benadryl few more days. also given EpiPen for acute allergic reaction Since patient was altered on admission there was concern for seizure, no seizure-like activity was noted during course of hospitalization patient is not on any seizure medications at home. In regard to PRES/ uncontrolled hypertension, patient placed on Coreg, amlodipine, hydralazine,and clonidine patch blood pressure since have improved now systolic BP in range of 140-160 , recommended close outpatient blood pressure follow-up with Nephrology End-stage renal disease recommend to continue dialysis as before,outpatient follow-up with Nephrology with close monitoring of renal function electrolyte and CBC Time Spent with Patient Time attestation: Total time spent providing and/or coordinating discharge services: Discharge coordination time: Greater than 30 minutes Quality: Stroke Does the patient have a stroke diagnosis?: No Physical Exam Vital Signs: Vital Signs: Last Vital Signs Temp 99.5 F 06/14/21 07:29 Pulse 81 06/14/21 07:29 Resp 18 06/14/21 07:29 BP 165/106 H 06/14/21 07:29 Pulse Ox 97 06/14/21 07:29 BMI result Body Mass Index 25.7 Appearance: Awake alert Alert , not in distress.? Eyes: Pupils equal, round and reactive to light.?? ENT:? tongue swelling improved, no drainage Right anterior chest wall hemodialysis catheter in place no surrounding erythema Neck no swelling, supple cvs: rrr, [id number] , no murmur res: clear to auscultation ,no rhonchii or wheezing abd: no rebound or guarding ,nt, bs present. ext pulses present , no cyanosis . neuro: axo3 , nonfocal. DS: Data Data Completed and Pending Labs on day of discharge: Laboratory Results - last 24 hr 06/09/21 12:35 Protein C Antigen TNP Protein C Activity 173 Protein S Activity 103 Total Protein S Ag TNP Free Protein S Antigen TNP Antithrombin III Ag 108 Discharge Plan Discharge Patient Disposition: Home Health Service Discharge Diagnosis: Angioneurotic edema, ESRD on dialysis, uncontrolled hypertension Referrals: Courtney RAMIREZ [Outside] - 3-5 Days ([facility], YOUR START OF CARE WILL BE THURSDAY 06/15 OR FRIDAY 06/16. ) Physician,Unknown J [Primary Care Provider] - 1 Week Discharge Medications: New carvedilol 25 mg Tablet 25 mg PO BID Qty: 60 RF: 0 sodium bicarbonate 650 mg Tablet 650 mg PO TID Qty: 90 RF: 0 amlodipine 10 mg Tablet 10 mg PO DAILY Qty: 30 RF: 0 diphenhydramine HCl [Allergy Relief(diphenhydramin)] 25 mg Tablet 25 mg PO BID Qty: 10 RF: 0 hydralazine 50 mg Tablet 100 mg PO TID Qty: 180 RF: 0 sevelamer carbonate 0.8 gram Powder In Packet 800 mg PO TIDWM Qty: 90 RF: 0 prednisone 20 mg tablet 40 mg PO DAILY Qty: 10 RF: 0 epinephrine [EpiPen] 0.3 mg/0.3 mL auto-injector 0.3 mg IM Q4H PRN (Reason: hypersensitivity reaction) Qty: 2 RF: 0 clonidine HCl 0.1 mg Tablet 0.1 mg PO BID@1100,2300 Qty: 60 RF: 0 spironolactone 25 mg Tablet 25 mg PO DAILY Qty: 30 RF: 0 Continued tretinoin 0.025 % cream 1 applic topical BEDTIME RF: 0 clindamycin-benzoyl peroxide 1-5 % gel 1 applic topical QAM RF: 0 Discontinued losartan 100 mg tablet 50 mg PO BID RF: 0 Discharge Orders: Discharge Order (Routine); Ordered 06/14/21 Ordered By: Dior Walters Diet: advance to usual diet Activity on Discharge: As tolerated Stand Alone Forms: Patient Portal Discharge page Care Plan Goals: patient was admitted for acute airway compromise and got intubated probably related to tongue swelling, possible angioneurotic edema, sequela : also treated for Pres- due to uncontrolled hypertension: Patient's initially was on IV anti hypertensive meds in ICU Vasotec, tongue swelling treated withIV steroids and antibiotics Subsequently extubated- subsequently switched to p.o. medications, patient hospital course had another episode of tongue swelling-treated with steroids and Benadryl seems to be improving. Patient was given limited supply of steroids and Benadryl upon discharge. also will given EpiPen PRES/ uncontrolled hypertension, patient was started on Coreg, amlodipine, hydralazine, clonidine patch blood pressure still fluctuating between 140-160 range nephrology will continue to follow as outpatient and adjust medications as required End-stage renal disease on dialysis continue dialysis outpatient as per Nephrology. Monitor renal function, electrolytes and CBC out patiently early next week Health Concerns: as above. Plan of Treatment: Outpatient follow-up with primary care physician and Nephrology in next 1-2 weeks Assessment: As per discharge summary Discharge Date/Time: 06/14/21 17:40
--- NOTE | 2021-06-14 16:05 | MHC.CM.PN ---
PT MEDICALLY CLEARED FOR D/C HOME W/[facility] FOR CORRECTION AND HOME PT AND RESUMP OF PD, PT WILL ARRANGE TRANSPORT.
[2021-06-14 17:03] VITALS: BP 155/105; PULSE 81; RESP 20; TEMP 36.9
[2021-06-14 19:27] LABS: Factor V Leiden NEGATIVE
[2021-06-15 00:11] LABS: Prothrombin 20210A NEGATIVE
== END 2021-06-14 17:40 | disposition home health service (06) | DRG 70 ==
LOC: HO.ED 14:39 → HO.EDOVER 16:21 → HO.ICU 16:23 → HO.S3 06-05 18:07 → HO.ICU 06-07 09:43 → HO.S3 06-07 13:51
PROVIDERS: Emergency Medicine; Internal Medicine; Internal Medicine Cardiovascular Disease; Physician Assistant Medical; Radiology Diagnostic Radiology; Admitting Provider Anesthesiology; Emergency Provider Emergency Medicine; Visit Provider Hospitalist
PROC: 0JH63XZ Insertion of Tunneled Vascular Access Device into Chest Subcutaneous Tissue and Fascia, Percutaneous Approach (ICD-10-PCS; principal; 2021-05-31 15:30)
DX: I67.83 Posterior reversible encephalopathy syndrome (principal); N18.6 End stage renal disease; J96.01 Acute respiratory failure with hypoxia; K12.2 Cellulitis and abscess of mouth; I67.4 Hypertensive encephalopathy; I12.0 Hypertensive chronic kidney disease with stage 5 chronic kidney disease or end stage renal disease; E87.2 Acidosis; T82.838A Hemorrhage due to vascular prosthetic devices, implants and grafts, initial encounter; E87.6 Hypokalemia; T78.3XXA Angioneurotic edema, initial encounter; I16.0 Hypertensive urgency; K14.0 Glossitis; G40.909 Epilepsy, unspecified, not intractable, without status epilepticus; D63.1 Anemia in chronic kidney disease; Z20.822 Contact with and (suspected) exposure to COVID-19; Z99.2 Dependence on renal dialysis; Z79.899 Other long term (current) drug therapy
CPT/HCPCS: 36415; 36430; 36556; 36558; 70450; 70491; 70498; 70551; 71045; 73200; 76775; 76937; 80048; 80053; 80076; 80143; 80179; 80307; 81001; 81240; 81241; 82009; 82040; 82077; 82550; 82803; 82947; 83090; 83605; 83690; 83735; 84100; 84145; 84443; 84484; 85007; 85025; 85027; 85300; 85301; 85302; 85303; 85305; 85306; 85610; 85652; 85730; 86021; 86038; 86039; 86147; 86704; 86706; 86709; 86803; 86850; 86900; 86901; 86923; 87040; 87077; 87186; 87205; 87340; 87389; 87493; 87635; 89055; 90999; 92526; 92610; 93005; 93971; 93975; 94002; 94003; 94799; 95816; 96361; 96365; 96366; 96367; 96375; 96376; 97110; 97163; 97167; 97535; 99152; 99153; 99285; 99291; 99292; C1750; C1752; C1758; C1769; J0295; J0885; J1100; J1170; J1200; J1642; J1885; J2250; J2270; J2370; J2405; J2543; J2930; J2997; J3010; J3370; P9016; P9017; Q0163; Q9967